=== PATIENT | female | born 1945 | race Caucasian/White ===

== ENCOUNTER 2025-03-24 20:24 | Emergency (ER) | payer MEDICARE, SELFPAY ==
--- OUTSIDE RECORDS SUMMARY | 2020-07-19 18:00 | XMS_ITS | Continuity of Care Document ---
Author Organization [facility] Primary Care Address [address] [place] [phone] Phone Care Team Providers Care Real Time Analyst Name Role Phone Eddie Lisa Unavailable Unavailab le Procedures Procedure Date SARSCOV2 VAC 100MCG/0.5ML IM Provider No Charge ADM SARSCOV2 100MCG/0.5ML2ND SARSCOV2 VAC 100MCG/0.5ML IM Provider No Charge ADM SARSCOV2 100MCG/0.5ML1ST PSYCH DIAG EVAL W/MED SRVCS [facility] visit, estab pt PSYTX W PT 30 MINUTES [facility] visit, estab pt Dis site tele svcs rhc/fqhc Dis site tele svcs rhc/fqhc PSYTX W PT 30 MINUTES [facility] visit, estab pt PSYCH DIAGNOSTIC EVALUATION [facility] visit, new pt Dis site tele svcs rhc/fqhc Advance Directives Directive Yes / No Effective Date File Name No Information Encounters Encounter Description Practice Location Reason(s) For Visit Diagnoses Date Provider Encounter Disposition [facility] Primary Care, [address] [place] [address] tel:[phone] [facility] Med Encounter for immunization ICD10 0 1 Jj Cates. [address] [place], [place], [id number], . tel:[phone] [facility] Primary Care, [address] [place] [address], [facility], tel:[phone] Conversion Default- None No Information 1 Jj Cates. [address] [place], [place], [id number], . tel:[phone] [facility] Primary Care, [address] [place] [address], [facility], tel:[phone] [facility] Encounter for immunization ICD10 1 Jj Eddie Loan. [address] [place], [place], [address] [place] [address], . tel:[phone] [facility] Primary Care, [address] [place] [address], [facility], tel:[phone] Conversion Default- None No Information 1 Jj Eddie Loan. [address] [place], [place], [address] [place] [address], . tel:[phone] PSYCH DIAG EVAL W/MED SRVCS [facility] Primary Care, [address] [place] [address], [facility], tel:[phone] Conversion Default- None No Information 1 Malina Fabian. [address] [place] [address], [address] [place] [address], . tel:[phone] [facility] Primary Care, [address] [place] [address], [facility], tel:[phone] [facility] Major depressive disorder, recurrent, moderateICD1 0Generalized anxiety disorderICD1 0 1 Malina Fabian. [address] [place] [address], [id number], . tel:[phone] PSYTX W PT 30 MINUTES [facility] Primary Care, [address] [place] [address], [facility], tel:[phone] Conversion Default- None No Information 0 Scrubbs Shenadra. [address] [place] [address], [address] [place] [address], . tel:[phone] [facility] Primary Care, [address] [place] [address], [facility], tel:[phone] [facility] Major depressive disorder, recurrent, moderateICD1 0Generalized anxiety disorderICD1 0 0 Scrubbs Shenadra. [address] [place], [place], [address] [place] [address], . tel:[phone] [facility] Primary Care, [address] [place] [address], tel:[phone] [facility] Major depressive disorder, recurrent, moderateICD1 0Generalized anxiety disorderICD1 0 0 Scrubbs Shenadra. [address] [place], [place], [address] [place] [address], . tel:[phone] PSYTX W PT 30 MINUTES [facility] Primary Care, [address] [place] [address], [facility], tel:[phone] Conversion Default- None No Information 0 Scrubbs Shenadra. [address] [place] [address], [address] [place] [address], . tel:[phone] [facility] Primary Care, [address] [place] [address] tel:[phone] [facility] Major depressive disorder, recurrent, moderateICD1 0Generalized anxiety disorderICD1 0 0 Scrubbs Shenadra. [address] [place], [place], [address] [place] [address], . tel:[phone] PSYCH DIAGNOSTIC EVALUATION [facility] Primary [facility], [address] [place] [address], [address] [place] [address] tel:[phone] Conversion Default- None No Information 0 Scrubbs Shenadra. [address] [place] [address], [address] [place] [address], . tel:[phone] Family History Family Member Type Diagnosis Age At Onset No Information Immunizations Vaccine Date Status Comments COVID-19 administered Note: COVID19 F act sheet 03/2020 ; Source: New Immunization Record COVID-19 administered Note: COVID19 F act sheet 03/2020 ; Source: New Immunization Record Payers Payer name Insurance type Identifiers Authorization(s) Com ments No Information Social History Type Description Quantity Date Captured Comments Sex Female Smoking Status No Information Vital Signs Date / Time: Height Weight BMI Pulse Rate Blood Pressure Temperature Respiratory Rate Body Surface Area Head Circumference Head Circ. Percentile Wt./Williams. Percentile BMI percentile Pulse Ox Inhaled Ox 12:00 AM 98.40 F Chief Complaint And Reason For Visit No Information History Of Present Illness Encounter Date Complaint History Of Prese nt Illness No Information Functional Status Date Description Comments No Information Instructions Date Instruction Additional Infor mation No Information Assessments Type Assessment Date No Information
--- OUTSIDE RECORDS SUMMARY | 2025-03-21 10:45 | XMS_ITS | Encounter Summary ---
Author Organization [facility] stem Address [address] [place] [address] Care Team Providers Care Yardmaster Name Role Phone Easton Solis MD Unavailable [phone] Brittny Kong MD Primary Care Provider [phone] Encounter Details Date Type Department Care Team (Late st Contact Info) Description 03/21/2025 10:45 AM LEGAL SERVICES PROFESSIONAL Lab [address] [address] Rani Smith, SEAM CLOSER [address] [place] [address] Linda Vines Urinary tract infection, site not specified (Primary Dx) Social History Tobacco Use Types Packs/Day Years Used Date Smoking Tobacco: Former Cigarettes 1.5 40 0 12/30/1960 - 12/30/2000 Smokeless Tobacco: Never Comments:QUIT 15 YEARS AGO Alcohol Use Standard Drinks/Week Comments No 0 (1 standard drink = 0.6 oz pur e alcohol) PHQ-2 Answer Date Recorded PHQ-2 Score 0 2025 Sexually Active Control Partners Comments Never Comments No Sex and Gender Information Value Date Recorded Sex Assigned at Not on file Legal Sex Female 3:39 PM CDT Gender Identity Not on file Sexual Orientation Not on file documented as of this encounter Functional Status * Are you deaf or do you have serious difficulty hearing? Answer Date of Assessment Author No 01/13/2025 2:42 PM CDT Lenard Gunn MA * Are you blind or do you have serious difficulty seeing, even when wearing glasses? Answer Date of Assessment Author No 01/13/2025 2:42 PM CDT Lenard Gunn MA * Do you have serious difficulty walking or climbing stairs? (5 years old or older) Answer Date of Assessment Author No 01/13/2025 2:42 PM CDT Lenard Gunn MA * Do you have difficulty dressing or bathing? (5 years old or older) Answer Date of Assessment Author No 01/13/2025 2:42 PM CDT Lenard Gunn MA * Because of a physical, mental, or emotional condition, do you have difficulty doing errands alone such as visiting a doctor's office or shopping? (15 years old or older) Answer Date of Assessment Author No 01/13/2025 2:42 PM CDT Lenard Gunn MA documented as of this encounter Mental Status * Because of a physical, mental, or emotional condition, do you have serious difficulty concentrating, remembering, or making decisions? (5 years old or older) Answer Entry Date Author No 01/13/2025 2:42 PM CDT Lenard Gunn MA documented in this encounter Patient Instructions * Patient Instructions* Linda Vines - 03/21/2025 10:45 AM LEGAL SERVICES PROFESSIONAL Urine only for [place] sent to [facility] documented in this encounter Plan of Treatment Upcoming Encounters Date Type Department Care Team (Late st Contact Info) Description 04/25/2025 10:00 AM LEGAL SERVICES PROFESSIONAL Office Visit [facility] - [address], [address] [place] [address] Brittny Kong MD [address] [place] [address] [address] [place] [address] 06/09/2025 2:15 PM LEGAL SERVICES PROFESSIONAL Lab [address] [address] [place] [address], [address] [place] [address] 06/16/2025 2:45 PM LEGAL SERVICES PROFESSIONAL Office Visit [facility] [address], [address] [place] [address] [place] [address] [address], [address] [place] [address] 06/16/2025 3:30 PM LEGAL SERVICES PROFESSIONAL Office Visit [facility] - [address], [address] [place] [address] Brittny Kong MD [address] [place] [address] [address] [place] [address] documented as of this encounter Goals Goal Patient Goal Type Associated Problems Recent Progress Patient-Stated? Author Have 3 meals a day Diet No Kamilla Gongora, RN Exercise 3x per week (30 min per time) Exercise No Kamilla Gongora, RN documented as of this encounter Procedures Procedure Name Priority Date/Time Associated Diagnosis Comments UA WITH REFLEX Routine 03/21/2025 11:10 AM LEGAL SERVICES PROFESSIONAL Recurrent UTI documented in this encounter Results * (ABNORMAL) Urinalysis with Reflex (03/21/2025 11:10 AM LEGAL SERVICES PROFESSIONAL) Color, Urine: YELLOW [facility]LLOW [facility] Appearance CLOUDY(A) CLEAR [facility] Specific [place], Urine 1.024 1.001 - 1.035 [facility] pH, Urine 5.5 5.0 - 8.0 [facility] Glucose, Urine 3+(A) NEGATIVE [facility] Bilirubin, Urine NEGATIVE NEGATIVE [facility] Ketones,Urine NEGATIVE NEGATIVE [facility] Occult Blood, Urine NEGATIVE NEGATIVE [facility] Protein, Urine NEGATIVE NEGATIVE [facility] NITRITE, URINE NEGATIVE NEGATIVE [facility] Leuk. Esterase, Urine NEGATIVE NEGATIVE [facility] WBC, Urine 0-5 < OR = 5 /HPF [facility] RBC, Urine NONE SEEN < OR = 2 /HPF [facility] Squamous Epithelial Cells, Urine NONE SEEN < OR = 5 /HPF [facility] Bacteria NONE SEEN NONE SEEN /HPF [facility] Casts, Hyaline NONE SEEN NONE SEEN /LPF [facility] Yeast, urine MANY(A) NONE SEEN /HPF [facility] Note: [facility] Comment: This urine was analyzed for the presence of WBC, RBC, bacteria, casts, and other formed elements. Only those elements seen were reported. 03/21/2025 11:1 0 AM LEGAL SERVICES PROFESSIONAL 03/22/2025 4:19 AM LEGAL SERVICES PROFESSIONAL Narrative Resulting Agency Comment Performing Organization Information: Site ID: [id number] Name: [email or web address] Address: [address] [place] [address] Director: Sherly Murphy Performing Organization Information: Site ID: [id number] Name: [email or web address] [facility] Address: [address] [place] [address] Director: Sherly Murphy us Rani Smith SEAM CLOSER URINE ORDERABLES Final Res ult Performing Organization Address City/State/[facility] [[email or web address]] de Phone Number [facility] [address] documented in this encounter Visit Diagnoses Diagnosis Urinary tract infection, site not specified- Primary documented in this encounter Additional Health Concerns Assessment Noted Time PHQ-9 Depression Total Score: 13 09/21/ 019 10:32 AM CDT PHQ-2 Depression Total Score: 0 03/15/20 25 1:00 PM LEGAL SERVICES PROFESSIONAL documented as of this encounter Care Teams Yardmaster Relationship Specialty [place] [address] [facility] [address] [place] [address] PCP - General Family Medicine 09/23/22 Easton Solis MD [address] [place] [address] MARIAJOSE FRANKLIN [address] Staff/Attending Physician Pulmonary Disease 02/09/18 documented as of this encounter
[2025-03-24 20:26] VITALS: BP 233/99; PULSE 65; RESP 18; TEMP 36.6; O2SAT 99
--- NOTE | 2025-03-24 20:38 | ECG_ITS ---
[facility] Test Date: 2025-03-24 Pat Name: Sobia Joya Department: Room: Gender: Female Airline Attendant: : 1945 Requested By: Gera Ayala Order Number: [id number] Vivian MD: Harleen Nunez M.D. Measurements Intervals [place] Rate: 67 P: 74 OR: 161 QRS: -19 QRSD: 92 T: 40 QT: 449 QTc: 477 Interpretive Statements SINUS RHYTHM PROLONGED QT INTERVAL No previous ECG available for comparison Electronically Signed On 03-25-2025 18:47:32 BUS STARTER by Harleen Nunez M.D. [email or web address]
--- OUTSIDE RECORDS SUMMARY | 2025-03-24 20:38 | XMS_ITS | Encounter Summary ---
Author Organization [facility] stem Address [address] [place] [address] Care Team Providers Care Skiver Sock Linings Name Role Phone Easton Solis MD Unavailable [phone] Brittny Kong MD Primary Care Provider [phone] Encounter Details Date Type Department Care Team (Late st Contact Info) Description 03/16/2025 Results Follow-Up [facility] [address] [place] [address] Rani Smith, ACCOUNT SUPPORT SPECIALIST [address] [place] [address] POCT urinalysis dipstick, Urinalysis with Reflex, Urine Culture Social History Tobacco Use Types Packs/Day Years [...] Lenard Gunn MA documented in this encounter Plan of Treatment Upcoming Encounters Date Type Department Care Team (Late st Contact Info) Description 04/25/2025 10:00 AM PSYCH ASSISTANT Office Visit [facility] - [address] [place] [id number] Brittny Kong MD [address] [place] [address] [address] [place] [address] 06/09/2025 2:15 PM PSYCH ASSISTANT Lab [address] [id number] [place] [address] [address] [facility] [address], [place] [id number] 06/16/2025 2:45 PM PSYCH ASSISTANT Office Visit [facility] [address] [place] [phone] [place] [address] [address], DR [facility] [address] [place], [place] [id number] 06/16/2025 3:30 PM PSYCH ASSISTANT Office Visit [facility] [place] [address] [place] [address], [address] [place] [address] Brittny Kong MD [address] [place] [address] [address] [place], [place] [id number] documented as of this encounter Goals Goal Patient Goal Type Associated Problems Recent Progress Patient-Stated? Author Have 3 meals a day Diet No Kamilla Gongora, RN Exercise 3x per week (30 min per time) Exercise No Kamilla Gongora, JONI documented as of this encounter Visit Diagnoses Not on filedocumented in this encounter Additional Health Concerns Assessment Noted Time PHQ-9 Depression Total Score: 13 09/21/ 019 10:32 AM CDT PHQ-2 Depression Total Score: 0 03/15/20 25 1:00 PM PSYCH ASSISTANT documented as of this encounter Care Teams Skiver Sock Linings Relationship Specialty Start Date End Date Brittny Kong MD [address] [place] [address] [address] [place] [address] PCP - General Family Medicine 09/23/22 Easton Solis MD [address] [place] [address] MARIAJOSE FRANKLIN [address] Staff/Attending Physician Pulmonary Disease 02/09/18 documented as of this encounter
--- OUTSIDE RECORDS SUMMARY | 2025-03-24 20:38 | XMS_ITS | Clinical Summary ---
Author Organization [facility] stem Address [address] [place] [address] Care Team Providers Care Samples And Repairs Preparer Name Role Phone Easton Solis MD Unavailable [phone] Brittny Kong MD Primary Care Provider [phone] Allergies No known active allergies Medications cyanocobalamin, vitamin B-12, 2,[address] 2,500 mcg under the tongue once a week Active calcium carbonate (CALTRATE) 600 mg (1,500 mg) Tab Take 1 tablet (600 mg total) by mouth daily Active ASPIRIN LOW DOSE 81 mg EC tablet Take 1 tablet (81 mg total) by mouth daily 016 Active multivitamin (THERAGRAN) Tab per tablet Take 1 tablet by mouth daily Active acetaminophen 500 mg coapsule as needed Active B-complex with vitamin C tablet 018 Active HYDROcodone-aceta minophen (NORCO) 10-325 mg per tablet Take 1 tablet by mouth every 8 (eight) hours as needed Usually only takes once a day 020 Active polyethylene glycol (Miralax) 17 gram packetIndications :Therapeutic opioid induced constipation Take 17 g by mouth daily 90 each 3 020 Active gabapentin (NEURONTIN) 600 MG Tab tablet Take 1 tablet (600 mg total) by mouth 2 (two) times daily Active potassium chloride SA (KLOR-CON) 10 MEQ TbTQ tabletIndications :Chronic diastolic congestive heart failure (CMS/HCC) Take 1 tablet (10 mEq total) by mouth daily 90 tablet 1 022 Active bisacodyL (DULCOLAX) [address] 1 suppository (10 mg total) rectally daily as needed Active docusate sodium (COLACE) 100 MG Cap capsule Take 1 capsule (100 mg total) by mouth 2 (two) times daily Active melatonin 5 mg Tab tablet Take 1 tablet (5 mg total) by mouth nightly Active cetirizine (ZyrTEC) 10 MG Tab tabletIndications :Chronic cough,Stage 1 mild COPD by GOLD classification ([facility]) Take 1 tablet (10 mg total) by mouth daily 90 tablet 3 023 Active tiZANidine (ZANAFLEX) 4 MG Tab tablet Take 1 tablet (4 mg total) by mouth nightly 90 tablet 3 023 Active carvediloL (COREG) 6.25 MG Tab tabletIndications :Essential hypertension Take 1 tablet (6.25 mg total) by mouth in the morning and 1 tablet (6.25 mg total) in the evening. Take with meals. 180 tablet 3 025 Active losartan (Cozaar) 50 MG Tab tabletIndications :Essential hypertension Take 1 tablet (50 mg total) by mouth 2 (two) times daily 180 tablet 3 025 Active Additional Information Patient taking differently:50 mg OralEvery morning, Reported on 2025 FLUoxetine (PROzac) 20 MG Cap capsuleIndication s:Anxiety with depression TAKE 1 CAPSULE EVERY DAY 90 capsule 3 025 Active mirtazapine (REMERON) 45 MG Tab tabletIndications :Primary insomnia Take 1 tablet (45 mg total) by mouth nightly 90 tablet 3 025 Active ondansetron (ZOFRAN-ODT) 4 MG TbDi disintegrating tablet 025 Active albuterol (Ventolin HFA) 90 mcg/actuation HFAA inhalerIndication s:Stage 1 mild COPD by GOLD classification ([facility]),Cigaret te nicotine dependence in remission Inhale 2 puffs into the lungs every 4 (four) hours as needed for Wheezing or Shortness of Breath INHALE 2 PUFFS EVERY 4 HOURS NEEDED FOR SHORTNESS OF BREATH OR WHEEZING 8 g 5 025 Active albuterol sulfate (PROVENTIL) 2.5 mg /3 mL (0.083 %) Nebu nebulizer solutionIndicatio ns:Stage 1 mild COPD by GOLD classification ([facility]/HCC),Cigaret te nicotine dependence in remission Take 3 mLs (2.5 mg total) by nebulization every 4 (four) hours as needed for Wheezing or Shortness of Breath 360 mL 5 025 Active fluticasone propionate (FLONASE) 50 mcg/actuation SpSn nasal sprayIndications: Chronic allergic rhinitis USE 2 SPRAYS NASALLY EVERY DAY NEEDED FOR RHINITIS. 48 g 3 025 Active fluticasone-umecl idin-vilanter (Trelegy Ellipta) 100-62.5-25 mcg DsDv inhalerIndication s:Stage 1 mild COPD by GOLD classification ([facility]) Inhale 1 puff into the lungs daily 90 each 3 025 Active Additional Information Patient taking differently:1 puff Inhalation Daily,(No times of day reported), Reported on 2025 cephalexin (KEFLEX) 500 MG Cap capsuleIndication s:Recurrent UTI Take 1 capsule (500 mg total) by mouth 3 (three) times a week 20 capsule 3 025 Active pravastatin (PRAVACHOL) 40 MG Tab tabletIndications :Dyslipidemia TAKE 1 TABLET EVERY NIGHT 90 tablet 1 025 Active mirabegron (Myrbetriq) 25 mg Tb24 24 hr ER tabletIndications :Urinary frequency,Incompl ete bladder emptying Take 1 tablet (25 mg total) by mouth daily 90 tablet 3 025 Active empagliflozin (JARDIANCE) 10 mg Tab tablet Take 1 tablet (10 mg total) by mouth every morning 025 2025 Active butalbital-acetam inophen-caffeine (ESGIC) 50-325-40 mg Tab per tablet 025 Active ciprofloxacin HCl (Cipro) 250 MG Tab tabletIndications :Acute cystitis with hematuria Take 1 tablet (250 mg total) by mouth 2 (two) times daily 10 tablet 025 Active pantoprazole (PROTONIX) 40 MG TbEC tabletIndications :Gastroesophageal reflux disease, unspecified whether esophagitis present TAKE 1 TABLET (40 MG TOTAL) BY MOUTH DAILY NEEDED 90 tablet 3 025 Active furosemide (LASIX) 20 MG Tab tabletIndications :Essential hypertension,Hype rtensive kidney disease with stage 3a chronic kidney disease (CMS/HCC),Chronic diastolic congestive heart failure (CMS/HCC) TAKE 1 TABLET EVERY DAY FOR SWELLING NEEDED 90 tablet 3 025 Active nystatin (MYCOSTATIN) 100,000 unit/mL Susp suspension Swish and spit 5 mLs 4 (four) times daily as needed 60 mL 025 Active vibegron 75 mg TabIndications:Re current UTI,Urinary frequency,Incompl ete bladder emptying Take 75 mg by mouth daily 90 tablet 3 024 2024 Discontinued furosemide (LASIX) 20 MG Tab tabletIndications :Essential hypertension,Hype rtensive kidney disease with stage 3a chronic kidney disease (CMS/HCC),Chronic diastolic congestive heart failure (CMS/HCC) Take 1 tablet (20 mg total) by mouth daily as needed (for swelling) 90 tablet 1 025 2024 Discontinued pantoprazole (PROTONIX) 40 MG TbEC tabletIndications :Gastroesophageal reflux disease, unspecified whether esophagitis present Take 1 tablet (40 mg total) by mouth daily as needed 90 tablet 2 025 2024 Discontinued amoxicillin-clavu lanate (AUGMENTIN) 500-125 mg Tab per tablet Take 1 tablet (500 mg total) by mouth 2 (two) times daily 2024 Discontinued(T herapy completed) oxybutynin (DITROPAN-XL) 10 MG TR24 24 hr tabletIndications :Recurrent UTI,Urinary frequency Take 1 tablet (10 mg total) by mouth daily 90 tablet 3 025 2024 Discontinued(A lternate therapy) nystatin (MYCOSTATIN) 100,000 unit/mL Susp suspension Swish and swallow 5 mLs 4 (four) times daily 60 mL 025 2024 Discontinued(R eorder) vibegron (GEMTESA) 75 mg Tab tabletIndications :Urinary frequency,Incompl ete bladder emptying Take 1 tablet (75 mg total) by mouth daily 90 tablet 3 025 11/12/ 2025 Discontinued(C ost of medication) Active Problems Problem Noted Date Diagnosed Date Acute cystitis with hematuria 2025 Assessment & Plan (2025 1:21 PM EDI DEVELOPER): New, with symptoms of increase urine frequency and dysuria. POC UA with blood and nitrates. Will send for microscopic and culture. Prescription for Cipro 250 mg twice a day for 5 days. Stop keflex until Cipro complete. She has a history of recurrent UTI and is currently taking keflex 500 mg three times a week. Recommend repeat UA in 7 days, and follow up with Dr. Davey . Abnormal CT of the chest 01/13/2025 Hypotension, unspecified hypotension type 2024 Pulmonary nodule 05/08/2023 Chronic cough 07/04/2022 Cigarette nicotine dependence in remission 07/04 Incomplete bladder emptying 08/20/2021 Iron deficiency 02/26/2021 Urinary frequency 08/21/2020 Hypertensive kidney disease with CKD stage III 0 06/19/2020 Anxiety with depression 06/19/2020 Chronic diastolic congestive heart failure 03/08 Bilateral pseudophakia 01/21/2020 Assessment & Plan (01/21/2020 11:51 AM CDT): Chronic, stable. Continue to follow up with Dr. Lea Microscopic hematuria 10/05/2018 Assessment & Plan (01/21/2020 11:45 AM CDT): Chronic, stable. Continue to follow up with Dr. Davey. Slow transit constipation 10/05/2018 Assessment & Plan (01/21/2020 11:35 AM CDT): Chronic, stable. Currently taking dulcolax, 1 tab daily as needed. Also trying to control with diet. Make sure to stay well hydrated and increase activity. Continue to follow up with Dr. Clifford. Age-related osteoporosis wit kelsie current pathological fracture 09/21/2018 Assessment & Plan (01/21/2020 11:43 AM CDT): Chronic, stable. Last DXA 11/2018 shows osteopenia. Currently taking Caltrate 600mg daily and Fosamax 70mg, once weekly, take with 8 oz water on empty stomach and do not lie down for 30 minutes after. Complications of osteoporosis is bone fracture. Over 65 yo calcium 1500 mg through diet or supplementation and Vitamin D 800 IU daily. Avoid smoking and heavy alcohol use. Exercise daily and stay active. Fall precautions. Continue to follow up with Dr. Clifford. Recurrent UTI 07/13/2018 Assessment & Plan (01/21/2020 11:45 AM CDT): Chronic, stable. Continue to follow up with Dr. Davey. Stage 3a chronic kidney disease 07/13/2018 Mild protein malnutrition 11/12/2017 Impaired fasting glucose 11/12/2017 Assessment & Plan (01/21/2020 11:38 AM CDT): Chronic, stable. Reports currently trying to control with diet. Continue to follow up with Dr. Clifford. Chronic allergic rhinitis 11/29/2016 Assessment & Plan (01/21/2020 11:32 AM CDT): Chronic, stable. Currently taking fluticasone 50mcg/spray, 2 sprays each nostril daily as needed. Continue to follow up with Dr. Clifford. Dyslipidemia 11/11/2016 Assessment & Plan (01/21/2020 11:47 AM CDT): Chronic, stable. Currently taking pravastatin 40mg, nightly. Continue to follow with Sarah Clifford MD. Complications of Hyperlipidemia discussed-Coronary Artery Disease, Stroke. Recommendations low fat, low salt. low cholesterol diet, increase exercise to 30-60 minutes. Postoperative malabsorption 11/11/2016 Therapeutic opioid-induced constipation (OIC) Assessment & Plan (01/21/2020 11:36 AM CDT): Chronic, stable. Currently taking dulcolax, 1 tab daily as needed. Also trying to control with diet. Make sure to stay well hydrated and increase activity. Continue to follow up with Dr. Clifford. Stage 1 mild COPD by GOLD classification 017 Assessment & Plan (01/21/2020 11:34 AM CDT): Chronic, stable. Currently taking albuterol 90mcg, 2 puffs every 4 hours as needed for shortness of breath or wheezing. Prescribed Trelegy but reports she is unable to afford at this time. Continue to follow up with Dr. Clifford. Hearing loss in right ear 06/04/2016 Assessment & Plan (01/21/2020 11:39 AM CDT): Chronic, stable. Reports she needs to follow up with slinger sequins, she is unable to afford. Continue to follow up with slinger sequins. Peripheral vascular angiopla sty status with implants and grafts 06/04/2016 Assessment & Plan (01/21/2020 11:51 AM CDT): Chronic, stable. Currently taking aspirin 81mg daily and pravastatin 40mg at night. Continue to follow up with Dr. Boss. Bilateral dry eyes 06/04/2016 Assessment & Plan (01/21/2020 11:50 AM CDT): Chronic, stable. Currently taking Restasis 0.05%, 1 drop both eyes daily. Continue to follow up with Dr. Lea. Long-term use of aspirin therapy 06/04/2016 Assessment & Plan (01/21/2020 11:48 AM CDT): Chronic, stable. Currently taking aspirin 81mg daily. Fall prevention discussed and education given. Continue to follow up with Dr. Casey and Dr. Clifford. Primary osteoarthritis involving multiple joints 06/04/2016 Assessment & Plan (01/21/2020 11:41 AM CDT): Chronic, stable. Currently taking acetaminophen 500mg, daily as needed for breakthrough pain, Holliday 10-325mg, every 8 hours and Voltaren gel 1%, apply 4 grams topically 2-3 times per day. Continue to follow up with Dr. Amezcua. Primary insomnia 01/30/2015 Assessment & Plan (01/21/2020 11:53 AM CDT): Chronic, stable. Currently taking trazodone 150mg, nightly. Continue to follow up with Dr. Clifford. Essential hypertension 01/30/2015 Assessment & Plan (2025 1:23 PM EDI DEVELOPER): Chronic, stable. Continue taking losartan 50 mg twice a day and carvedilol 6.25 mg daily. Continue to follow with Brittny Kong MD. Complications of Hypertension are-Coronary Artery Disease, Stroke, Congestive Heart Failure, Chronic Renal Disease and dialysis. Recommendations Weight loss, Diet (DASH diet)- low sodium diet, rich in fruits and vegetables and lowfat dairy products, increase exercise to 30-60 minutes and limit consumption of alcohol to no more than 1-2 drink per day. Monitor blood pressure twice a week. Assessment & Plan (01/21/2020 11:31 AM CDT): Chronic, stable. Currently taking aspirin 81mg, daily, Imdur 30mg, daily and lisinopril 20mg, daily. Complications of Hypertension discussed-Coronary Artery Disease, Stroke, Congestive Heart Failure, Chronic Renal Disease and dialysis. Recommendations Weight loss, Diet (DASH diet)- low sodium diet, rich in fruits and vegetables and lowfat dairy products, increase exercise to 30-60 minutes and limit consumption of alcohol to no more than 1-2 drink per day. Monitor blood pressure twice a week. Continue to follow up with Dr. Casey and Dr. Clifford. Gastroesophageal reflux disease 01/30/2015 Overview (01/20/2020): January 2020 IMO Regulatory Import Assessment & Plan (01/21/2020 11:37 AM CDT): Chronic, stable. Currently taking Protonix 40mg, daily. [id number] measures were discussed in detail and explained : Elevate the head of bed 6 inches, avoid caffeine, fatty meals, spicy meals, smoking, alcohol, chocolate, peppermint, red sauce, avoid lying down up to 2-3 hours after meals, eat 5-6 small meals daily, smoking cessation. Continue to follow up with Dr. Clifford. History of bariatric surgery 01/30/2015 Overview (01/30/2015): Gastric sleeve surgery in [facility] in July [address] Andersen Assessment & Plan (01/21/2020 11:54 AM CDT): Chronic, stable. Currently taking B12, 2500mcg under the tongue once weekly. Continue to follow up with Dr. Clfiford. Overactive bladder 01/30/2015 Assessment & Plan (2025 1:22 PM EDI DEVELOPER): Chronic noted, Currently taking Myrbetriq 25 mg daily. Continue to follow with Dr. Davey. Assessment & Plan (01/21/2020 11:46 AM CDT): Chronic, stable. Currently taking oxybutynin 5mg twice daily. Continue to follow up with Dr. Clifford and Dr. Davey. Chronic low back pain with sciatica 01/30/2015 Overview (11/11/2016): Bulging disc and lumbar stenosis in her lower back with resultant sciatica. Under the care of Dr. Pulliam Assessment & Plan (01/21/2020 11:53 AM CDT): Chronic, stable. Currently taking acetaminophen 500mg, daily as needed for breakthrough pain, Holliday 10-325mg, every 8 hours, tizanidine 4mg at bedtime and Voltaren gel 1%, apply 4 grams topically 2-3 times per day. Continue to follow up with Dr. Amezcua. Sinus bradycardia 01/30/2015 Overview (01/30/2015): Under the care of her clinical quality analyst Dr. Rafael Casey at [facility]. Assessment & Plan (01/21/2020 11:29 AM CDT): Chronic, stable. Continue to follow upw ith Dr. Casey as directed. Peripheral artery disease 01/30/2015 Overview (01/30/2015): Bilateral ?common iliac stents in 2000 Assessment & Plan (01/21/2020 11:29 AM CDT): Chronic, stable. Currently taking aspirin 81mg daily and pravastatin 40mg at night. Continue to follow up with Dr. Boss. Resolved Problems Problem Noted Date Diagnosed Date Resolved Date Stage 3b chronic kidney disease 09/26/2020 01/23/2023 CKD (chronic kidney disease) stage 2, GFR 60-89 ml/min 08/21/2020 01/23/2023 Urinary frequency 05/03/2019 01/21/2020 Urinary urgency 07/13/2018 01/21/2020 Bilateral artificial lens implant 06/04/2016 01/21/2020 Encounters Date Type Department Care Team Description 03/22/2025 Results Follow-Up [facility] [address], [address] [place] [phone] Rani Smith, EMILEE Urinalysis with Reflex 03/21/2025 10:45 AM EDI DEVELOPER Lab [address] [address] Rani Smith, Linda Deal Urinary tract infection, site not specified (Primary Dx) 03/21/2025 Telephone [facility] [address] MD, Dr [address] [place] [address] [place], [place] 03/21/[address], [address] [phone] Brittny Kong MD 03/16/2025 Results Follow-Up [facility] [address] [place] [address] Rani Smith, EMILEE POCT urinalysis dipstick, Urinalysis with Reflex, Urine Culture 03/16/[address], [address] [phone] Brittny Kong MD Medication Refill 2025 1:00 PM EDI DEVELOPER Office Visit [address], [address] [phone] Civello, Rani M, TREE WARDEN Acute cystitis with hematuria (Primary Dx); Overactive bladder; Essential hypertension 03/14/2025 Patient Outreach [facility] [address] [place] [address] Robbin Gabriel SN 03/03/2025 Orders Only [facility] [place] [address] [place] [address] Elisa Lucas MA 03/03/2025 [facility]phone [facility] [place] [address] [place] [address] Bret Davey MD 03/02/2025 [facility] [place] [address] [place] [address] Dayna Cardona MA Urinary frequency (Primary Dx); Incomplete bladder emptying 03/01/2025 Telephone [facility] [place] [address] [place] [address] Bret Davey MD 03/01/2025 Orders [facility] [place] [address] [place] [address] Dayna Cardona MA Urinary frequency (Primary Dx); Incomplete bladder emptying 03/01/2025 Telephone [facility] [place] [address] [place] [address] Bret Davey MD 02/24/2025 Refill [facility] [address], [address] [place] [address] Art Delacruz MD Pt of Dr. Delacruz 02/21/2025 Telephone [facility] [address], [address] [place] [address] Basso, med refill 02/10/2025 Patient Outreach [facility] [address] [place] [address] HarveyRoryy, SN 01/28/2025 Refill [facility] [place] [address] [place] [address] Dagmar Isaacs MA Medication Refill 01/28/2025 Telephone [facility] [place] [address] [place] [address] Bret Davey MD 01/26/2025 Orders Only [facility] [place] [address] [place] [address] Ficklin, Nilaina, NURSE DISCHARGE PLANNER Recurrent UTI; Urinary frequency 01/26/2025 Telephone [facility] [place] [address] [place] [address] Bret Davey MD 01/25/2025 Telephone [facility] [address], [address] [place] [address] Fowlkes, missed call 01/25/2025 Refill [facility] [place] [address] [place] [address] Ficklin, Nilaina, NURSE DISCHARGE PLANNER Medication Refill 01/24/2025 Telephone [facility] [address], Dr, [address] [place] [address] Fowlkes med refill. 01/24/[address], [address] [place] [address] Basso med refill. 01/24/[address], [address] [place] [phone] Basso, med status 01/18/[address], [address] [address] Basso - med update needed 01/18/2025 Telephone [facility] [address], Dr, [address] [place] [address] Fowlkes - med update needed 01/17/2025 Results Follow-Up [address], [address] [address] Brittny Kong MD Comprehensive metabolic panel, Lipid panel, Microalbumin/Creatini ne Ratio, Random Urine, Hemoglobin A1c 01/14/2025 Orders Only [address], [address] [address] Brittny Kong MD 01/13/2025 3:15 PM CDT Office Visit [address], [address] [place] [address] Art Delacruz MD 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) (Primary Dx); Pulmonary nodule; Sinus bradycardia; Cigarette nicotine dependence in remission; Abnormal CT of the chest 01/13/2025 2:30 PM CDT Office Visit [address], [address] [address] Brittny Kong MD Prediabetes (Primary Dx); Gastroesophageal reflux disease, unspecified whether esophagitis present; Dyslipidemia 01/13/2025 Telephone [facility] [address], Dr, [address] [place] [address]Fowlkes- rx fill 01/06/2025 Telephone [facility] [address], Dr, [address] [place] [address] Fowles, please advise 01/06/2025 Orders Only [facility] [address], Dr, [address] [place] [address] Art Delacruz MD Bradycardia (Primary Dx) 01/06/2025 Results Follow-Up [facility] [address], Dr, [address] [place] [address] Art Delacruz MD [address] 01/05/2025 Refill [facility] - [address], [address] [place] [phone] Brittny Kong MD Medication Refill 12/30/2024 8:32 AM CDT - 12/30/2024 11:59 PM CDT Hospital Encounter Cat Scan [address] [place] [address] Art Delacruz MD 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); Pulmonary nodule Discharge Disposition: Home or Self Care 12/30/2024 8:00 AM CDT Procedure Visit [facility] [address] [place] [address] Art Delacruz MD Alford, Cynthia, LRT 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); Dyspnea on exertion 12/30/2024 Telephone [facility] [address], [address], [address] [place] [address] Stephanie Hunter MA from Last 3 Months Immunizations Immunization Administration Dates Next Due Covid-19, mRNA, LNP-S, PF, 1 00 Mcg/0.5 Ml Dose (Moderna) 09/19/2020,07/20/2020,06/22/2020 Influenza Quadrivalent 01/30/2015 Influenza, High-dose, Quadrivalent 02/26/2021 Influenza,seasonal,injectable 01/19/2021, 013 Pneumococcal Polysaccharide PPV23 (Pneumovax 23) 12/07/2019 Pneumococcal conjugate,13 valent 08/13/2017 Zoster (SHINGRIX), Recombinant 12/07/2019 Family History Medical History Relation Comments Diabetes Father Heart disease Father Arthritis Mother Breast cancer Paternal Aunt Relation Status Comments Father Mother Paternal Aunt Social History Tobacco Use Types Packs/Day Years Used Date Smoking Tobacco: Former Cigarettes 1.5 40 0 12/30/1960 - 12/30/2000 Smokeless Tobacco: Never Tobacco Cessation:Counseling Given: Not Answered Comments:QUIT 15 YEARS AGO Alcohol Use Standard [...] on file Sexual Orientation Not on file Last Filed Vital Signs Vital Sign Reading Time Taken Comments Blood Pressure 122/80 2025 12:59 PM EDI DEVELOPER Pulse 68 2025 12:59 PM EDI DEVELOPER Temperature 36.7 C (98 F) 2025 12:59 PM EDI DEVELOPER Respiratory Rate 18 2025 12:59 PM EDI DEVELOPER Oxygen Saturation 97% 2025 12:59 PM EDI DEVELOPER Inhaled Oxygen Concentration - - Weight 100.2 kg (221 lb) 2025 12:59 PM EDI DEVELOPER Height 170.2 cm (5' 7 ) 2025 12:59 PM EDI DEVELOPER Body Mass Index 34.61 2025 12:59 PM EDI DEVELOPER Plan of Treatment Upcoming Encounters Date Type Department Care Team (Late st Contact Info) Description 04/25/2025 10:00 AM EDI DEVELOPER Office Visit [facility] - [address], [address] [address] [place] [address] Brittny Kong MD [id number] [place] [address] [address] [place] [address] 06/09/2025 2:15 PM EDI DEVELOPER Lab [address] [place] [address] [place] [address], DR [address] [place] [address] 06/16/2025 2:45 PM EDI DEVELOPER Office Visit [facility] [address], [address] [place] [address] [place] [address] [address], DR [address] [place] [address] 06/16/2025 3:30 PM EDI DEVELOPER Office Visit [facility] - [address], [address] [place] [address] Brittny Kong MD [address] [place] [address] [address] [place] [address] Health Maintenance Due Date Last Done Comments CT Colonography 1945 FIT-DNA (Cologuard) 1945 Sigmoidoscopy 1945 DTaP,Tdap and Td Vaccines (1 - Tdap) 1952 Advance Care Planning 2010 FOBT 06/10/2019 06/10/2018, 04/22, 11/15/2016 Zoster Vaccine (Shingrix) (2 of 2) 02/01/2020 12/07/2019 RSV Vaccine 50 Years and Older or (1 - 1-dose 75+ series) 2020 Annual Medicare Exam 01/20/2021 01/21/2020, 01/21/20 COVID-19 Vaccine ( - season) 2024 09/19/2020, 07/20/2020, 06/22/2020 Influenza Vaccine (#1) 2024 , 01/19/2021, 01/30/2015, Additional history exists Colonoscopy 06/12/2031 06/12/2021, 08/11/2013 Colorectal Cancer Screening 06/12/2031 Hepatitis C Screening Discontinued 05/05/2018 Pneumococcal Vaccine 50 years old and older Completed 12/07/2019, 08/13/2017 Mammogram Discontinued 07/01/2022, 08/2021, 04/25/2021, Additional history exists Lung Cancer Screening Discontinued 12/30/2024 , 10/09/2023, 04/18/2023, Additional history exists RSV Vaccine <20 Months Aged Out No lo nger eligible based on patient's age to complete this topic Goals Goal Patient Goal Type Associated Problems Recent Progress Patient-Stated? Author Have 3 meals a day Diet No Kamilla Gongora, RN Exercise 3x per week (30 min per time) Exercise No Kamilla Gongora RN Procedures Procedure Name Priority Date/Time Associated Diagnosis Comments UA WITH REFLEX Routine 03/21/2025 11:10 AM EDI DEVELOPER Recurrent UTI URINE CULTURE Routine 03/21/2025 11:10 AM EDI DEVELOPER POCT URINALYSIS DIPSTICK Routine 2025 1:20 PM EDI DEVELOPER Acute cystitis with hematuria UA WITH REFLEX Routine 2025 1:10 PM EDI DEVELOPER Acute cystitis with hematuria URINE CULTURE Routine 2025 1:10 PM EDI DEVELOPER HGB A1C Routine 01/14/2025 4:28 PM CDT MICROALBUMIN URINE QUANT W/CREATININE RATIO Routine 01/14/2025 4:28 PM CDT LIPID PANEL Routine 01/14/2025 4:28 PM CDT COMPREHENSIVE METABOLIC PANEL Routine 01/14/2025 4:[address] CHEST WO CONTRAST Routine 12/30/2024 8:53 AM CDT 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) Pulmonary nodule 6 MINUTE WALK Routine 12/30/2024 8:00 AM CDT 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 Color, Urine: YELLOW YELLOW QUEST Appearance CLOUDY(A) CLEAR QUEST Specific [place], Urine 1.024 1.001 - 1.035 QUEST pH, [...] seen were reported. 03/21/2025 11:1 0 AM EDI DEVELOPER 03/22/2025 4:19 AM EDI DEVELOPER Narrative Resulting Agency Comment Performing Organization Information: Site ID: [id number] Name: [facility] Address: [address] [place] [id number] Director: Sherly Murphy Performing Organization Information: Site ID: [id number] Name: [facility] Address: [address] [place] [address] Director: Sherly Murphy Rani Smith NP URINE ORDERABLES Final Res ult Performing Organization Address [facility] de Phone Number [facility] [address] * Urine Culture (03/21/2025 11:10 AM EDI DEVELOPER) Only the most recent of2 resultswithin the time period is included. Urine Culture, Routine QUEST Comment: CULTURE, URINE, ROUTINE Micro Number: [id number] Test Status: Final Specimen Source: Urine Specimen Quality: Adequate Result: Upon further incubation: Mixed genital jerald isolated. These superficial bacteria are not indicative of a urinary tract infection. No further organism identification is warranted on this specimen. If clinically indicated, recollect clean-catch, mid-stream urine and transfer immediately to Urine Culture Transport Tube. 03/21/2025 11:1 0 AM EDI DEVELOPER 03/22/2025 4:19 AM EDI DEVELOPER Narrative Resulting Agency Comment Performing Organization Information: Site ID: [id number] Name: [facility] Address: [address] [place] [address] Director: Sherly Murphy Performing Organization Information: Site ID: RGA Name: [facility] Address: [address] [place] [address] Director: Sherly Murphy Rani Smith NP MICROBIOLOGY - GENERAL ORD ERABLES Final Result Performing Organization Address [facility] de Phone Number [facility] [address] [facility] * (ABNORMAL) POCT urinalysis dipstick (2025 1:20 PM EDI DEVELOPER) Glucose, Urine POC Negative Negative mg/dl Bilirubin, Urine POC Small(A) Negative Ketones, Urine POC Negative Negative mg/dl Specific [place] POC 1.015 1.005 - 1.030 Blood, Urine POC Small(A) Negative pH, Urine POC 8.5(A) 4.5 - 8.0 Protein, Urine POC 100 ([place])(A) Negative mg/dl Urobilinogen, Urine POC 1.0 (One) 0.2 ([place]), 1.0 (One) E.U/dl Nitrite, Urine POC Positive(A) Negative Leukocyte est, Urine POC Large(A) Negative Appearance POC yellow/cloud y Lot Number [id number] Expiration POC 10/19/2025 Dance Critic POC Siemens 2025 1:20 PM EDI DEVELOPER us Rani Smith NP POINT OF CARE TEST ORDERAB LES Final Result * Microalbumin/Creatinine Ratio, Random Urine (01/14/2025 4:28 PM CDT) Creatinine, Urine 90.3 Not Estab. mg/dL [facility] 1 Microalbumin, Urine 4.4 Not Estab. ug/mL [facility] 1 MICROALB/CREAT RATIO 5 0 - 29 mg/g creat [facility] 1 Comment: Normal: 0 - 29 Moderately increased: 30 - 300 Severely increased: >300 01/14/2025 4:28 PM CDT 01/14/2025 Narrative [facility] - 01/15/2025 3:09 PM CDT Specimen Comment: A courtesy copy of this report has been sent to [facility] *I* Performed at: - [facility] [address] [place], [place] [id number] Head Baker: Bienvenido Morales MD, Phone: [phone] us Brittny Kong MD URINE ORDERABLES Final Result [facility] [address] [place] [address] 1 * (ABNORMAL) Hemoglobin A1c (01/14/2025 4:28 PM CDT) HGB A1C% 6.1(H) 4.8 - 5.6 % [facility] 1 Comment: Prediabetes: 5.7 - 6.4 Diabetes: >6.4 Glycemic control for adults with diabetes: <7.0 01/14/2025 4:28 PM CDT 01/14/2025 Narrative [facility] - 01/15/2025 3:09 PM CDT Specimen Comment: A courtesy copy of this report has been sent to [facility] *I* Performed at: - [facility] [address] [id number] Head Baker: Bienvenido Morales MD, Phone: [phone] Brittny Kong MD LAB BLOOD ORDERABLES Final Res ult Performing Organization Address [facility] Co de Phone Number [facility] [address] [place] [phone] 1 * (ABNORMAL) Lipid panel (01/14/2025 4:28 PM CDT) Cholesterol, Total 158 100 - 199 mg/dL [facility] 1 Triglyceride 168(H) 0 - 149 mg/dL [facility] 1 HDL 40 >39 mg/dL [facility] 1 VLDL Cholesterol Calc 29 5 - 40 mg/dL [facility] 1 LDL, Calculated 89 0 - 99 mg/dL [facility] 1 01/14/2025 4:28 PM CDT 01/14/2025 Narrative [facility] - 01/15/2025 3:09 PM CDT Specimen Comment: A courtesy copy of this report has been sent to [facility] *I* Performed at: - [facility] [address] [id number] Head Baker: Bienvenido Morales MD, Phone: [phone] Brittny Kong MD LAB BLOOD ORDERABLES Final Res ult Performing Organization Address [facility] Co de Phone Number [facility] [address] [place] [phone] 1 * (ABNORMAL) Comprehensive metabolic panel (01/14/2025 4:28 PM CDT) Glucose 124(H) 70 - 99 mg/dL [facility] 1 BUN 9 8 - 27 mg/dL [facility] 1 Creatinine 1.10(H) 0.57 - 1.00 mg/dL [facility] 1 eGFR 51(L) >59 mL/min/1.7 3 [facility] 1 BUN/Creatinine Ratio 8(L) 12 - 28 [facility] 1 Sodium 141 134 - 144 mmol/L [facility] 1 Potassium 4.3 3.5 - 5.2 mmol/L [facility] 1 Chloride 99 96 - 106 mmol/L [facility] 1 Carbon Dioxide 27 20 - 29 mmol/L [facility] 1 Calcium 9.6 8.7 - 10.3 mg/dL [facility] 1 Total Protein 6.3 6.0 - 8.5 g/dL [facility] 1 Albumin 3.7(L) 3.8 - 4.8 g/dL [facility] 1 Globulin 2.6 1.5 - 4.5 g/dL [facility] 1 Bilirubin, Total 0.5 0.0 - 1.2 mg/dL [facility] 1 Alkaline Phosphatase 90 49 - 135 IU/L [facility] 1 Comment:Please note refere nce interval change AST 16 0 - 40 IU/L [facility] 1 ALT 7 0 - 32 IU/L [facility] 1 01/14/2025 4:28 PM CDT 01/14/2025 Narrative [facility] - 01/15/2025 3:09 PM CDT Specimen Comment: A courtesy copy of this report has been sent to [facility] *I* Performed at: - [facility] [address] [place], [place] [id number] Head Baker: Bienvenido Morales MD, Phone: [phone] us Brittny Kong MD LAB BLOOD ORDERABLES Final Res ult [facility] [address] [place] [address] 1 * CT Chest WO Contrast (12/30/2024 8:53 AM CDT) Anatomical Region Laterality Modality Chest Computed Tomogra phy 12/30/2024 9:28 AM CDT Narrative 12/30/2024 9:36 AM CDT EXAM: CT CHEST WO CONTRAST CLINICAL HISTORY: Follow-up pulmonary nodules COMPARISON: 10/09/2023 TECHNIQUE: Standard thin-section axial images, with reformatted sagittal and coronal images. FINDINGS: There is a new small dependent left pleural effusion compared to 10/09/2023. Increasing areas of lung consolidation are also visible in the left lower lobe, particularly at the lung base consistent with developing pneumonia. Additional new scattered areas of lung consolidation consistent with pneumonia are also visible in the left upper lobe in the mid lung zone. Opacities in the right middle lobe in the infrahilar region seen on 10/09/2023 consistent with pneumonitis have resolved although a separate 10 mm noncalcified nodule located anteriorly and medially in the anterior segment of the right upper lobe (series 2, image 65) is unchanged. No pathologic lymph node enlargement is visible in the mediastinum or axilla bilaterally. Heart size is normal. Moderate to severe vascular calcification is visible in the major coronary arteries, relatively greater in the left circumflex artery. No chest wall abnormalities are appreciated. Visualized portions of the upper abdomen appear normal except for evidence of cholecystectomy and gastric sleeve procedure. 1. Increasing opacity consistent with pneumonitis in the left upper and lower lobes and new small dependent left pleural effusion compared to 10/09/2023. 2. Resolution of pneumonitis in the right middle lobe since 10/09/2023. 3. Stable 10 mm noncalcified nodule in the right upper lobe. 4. No adenopathy is appreciated in the chest. All CT scans at this location are performed using dose modulation techniques as appropriate to a performed exam including the following: Automated exposure control; adjustment of the mA and/or kV according to patient size (this includes techniques or standardized protocols for targeted exams where dose is matched to indication / reason for exam; i.e. extremities or head); use of iterative reconstruction technique. Finalized on: 12/30/2024 9:36 AM By: Cyrus Caro [facility]# [id number] 2024-12-30 09:38:11.901 [facility] Procedure Note Cyrus Caro MD - 12/30/2024 EXAM: CT CHEST WO CONTRAST CLINICAL HISTORY: Follow-up pulmonary nodules COMPARISON: 10/09/2023 TECHNIQUE: Standard thin-section axial images, with reformatted sagittaland coronal images. FINDINGS: There is a new small dependent left pleural effusion compared to10/09/2023. Increasing areas of lung consolidation are also visible inthe left lower lobe, particularly at the lung base consistent withdeveloping pneumonia. Additional new scattered areas of lung consolidation consistent with pneumonia are alsovisible in the left upper lobe in the mid lung zone. Opacities in theright middle lobe in the infrahilar region seen on 10/09/2023 consistentwith pneumonitis have resolved although a separate 10 mm noncalcified nodule located anteriorly andmedially in the anterior segment of the right upper lobe (series 2, image65) is unchanged. No pathologic lymph node enlargement is visible in themediastinum or axilla bilaterally. Heart size is normal. Moderate to severe vascular calcification is visiblein the major coronary arteries, relatively greater in the left circumflexartery. No chest wall abnormalities are appreciated. Visualized portionsof the upper abdomen appear normal except for evidence of cholecystectomy and gastric sleeveprocedure. 1. Increasing opacity consistent with pneumonitis in the left upper andlower lobes and new small dependent left pleural effusion compared to10/09/2023. 2. Resolution of pneumonitis in the right middle lobe since 10/09/2023. 3. Stable 10 mm noncalcified nodule in the right upper lobe. 4. No adenopathy is appreciated in the chest. All CT scans at this location are performed using dose modulationtechniques as appropriate to a performed exam including the following:Automated exposure control; adjustment of the mA and/or kV according topatient size (this includes techniques or standardized protocols for targeted exams where dose is matched toindication / reason for exam; i.e. extremities or head); use of iterativereconstruction technique. Finalized on: 12/30/2024 9:36 AM By: Cyrus Caro [facility]# [id number] 2024-12-30 09:38:11.901 [facility] us Art Delacruz MD IM CT ORDERABLES Final Result * 6 minute walk (12/30/2024 8:00 AM CDT) Narrative [facility] - 12/30/2024 8:00 AM CDT [facility] 12/30/2024 8:37 AM Name of the Patient: Sobia Joya Date of test: 12/30/24 [facility] 6 Minute Walk Evaluation Resting Data 1 2 3 4 5 6 Recovery Data Heart Rate 48 36 41 45 55 75 75 48 Blood Pressure 130/76 - - - - - - 138/76 Respiratory Rate 16 18 20 20 24 28 28 16 Oxygen Saturation 98 98 97 97 97 97 97 98 MANINDER 2 2 3 3 3 4 4 2 FiO2 RA RA RA RA RA RA RA RA Modified Jo Ann Dyspnea Scale 0 Not at All 0.5 Just Noticeable 1 Very Slight 2 Slight 3 Moderate 4 Somewhat Severe 5 Severe 6 7 Very Severe 8 9 10 Very, Very Severe Total Distance Walked (feet):550 Number of Rest Stops: 0 Comments: Patient received on room air with a resting saturation of 98%. She was able to walk 550 ft on room air with no rest stops. She used her rolling walker during testing. Unable to obtain B/P while ambulating. MD office called due to low HR. us Art Delacruz MD RT ORDERABLES Final Result * Mammo Digital CAD Screening (07/01/2022 11:33 AM CDT) Anatomical Region Laterality Modality Breast Bilateral Mammography 07/02/2022 5:54 AM CDT Narrative 07/02/2022 5:56 AM CDT REASON FOR EXAM: [Z12.31]-Encounter for screening mammogram for malignant neoplasm of breast TECHNICAL FACTORS: Digital mammography with tomosynthesis was performed of the breasts in the mediolateral oblique and craniocaudal views. CAD was utilized. CLINICAL INFORMATION: This is a female patient for screening mammogram. According to the National Cancer Powers Alice Model risk assessment tool, her lifetime breast cancer risk is 2.7% . COMPARISON: 11/14/2016, 03/06/2015 FINDINGS: There are scattered areas of fibroglandular density. There is no evidence of suspicious mass, calcifications or architectural distortion. Benign calcifications and benign asymmetries are present in the breasts. There is no adverse interval change observed. IMPRESSION: BI-RADS 2 - Benign No mammographic findings of malignancy are identified. Annual mammography is recommended. BREAST DENSITY: Scattered Fibroglandular The patient has been entered into our radiology information system, and she will receive notification approximately 30 days prior to the due date of her next annual screening mammogram. us Sarah Clifford MD IMG MAMMOGRAPHY ORDERABLES Final Result * HM COLONOSCOPY (06/12/2021) Rebeka Youngblood MD HEALTH MAINTENANCE Final Result * POC Occult Blood Stool x3 (06/10/2018 1:47 PM EDI DEVELOPER) FECAL OCCULT BLOOD,SCREEN POC Negative FECAL OCCULT BLOOD,SCREEN POC Negative FECAL OCCULT BLOOD,SCREEN POC Negative Lot Number [id number] Expiration POC Dance Critic POC Anita Internal QC, POC Passed Stool specimen (specimen) 06/10/2018 1:47 PM EDI DEVELOPER Sarah Clifford MD POINT OF CARE TEST ORDERABL ES Final Result * Hepatitis C Antibody (05/05/2018 2:48 PM EDI DEVELOPER) Pathologist [facility] Hepatitis C Ab NON-REACTI VE NON-REACTI VE QUEST Signal to Cutoff 0.55 <1.00 QUEST Blood specimen (specimen) BLOOD SPECIMEN / Unknown 05/05/2018 2:48 PM EDI DEVELOPER 05/08/2018 4:19 AM EDI DEVELOPER Narrative Resulting Agency Comment Performing Organization Information: Site ID: RGA Name: [facility] Address: [address] [place] [address] Director: Oliva Faust Sarah Clifford MD LAB BLOOD ORDERABLES Final Result Performing Organization Address [facility] Co de Phone Number [address] from Last 3 Months or Most Recently Relevant to Health Maintenance Insurance HU[employer] MEDICARE HMO HU[employer]NA MEDICARE HMO Care Teams Samples And Repairs Preparer Relationship Specialty [place] [address] [facility] [address] [place] [address] PCP - General Family Medicine 09/23/22 [place]on Solis [place] [id number] [place] [address] MARIAJOSE FRANKLIN [address] Staff/Attending Physician Pulmonary Disease 02/09/18
--- OUTSIDE RECORDS SUMMARY | 2025-03-24 20:38 | XMS_ITS | Encounter Summary ---
Author Organization [facility] stem Address [address] [address] Care Team Providers Care Grain Processor Name Role Phone Easton Solis MD Unavailable [phone] Brittny Kong MD Primary Care Provider [phone] Encounter Details Date Type Department Care Team (Late st Contact Info) Description 03/22/2025 Results Follow-Up [facility] [address] [place] [address] Rani Smith, LINE ERECTOR [address] [place] [address] Urinalysis with Reflex Social History Tobacco Use Types Packs/Day Years [...] st Contact Info) Description 04/25/2025 10:00 AM FOURDRINIER MACHINE OPERATOR Office Visit [facility] - [address], [address] [place] [address] Brittny Kong MD [address] [place] [address] [address] [place], [place] [id number] 06/09/2025 2:15 PM FOURDRINIER MACHINE OPERATOR Lab [address] [address] [place] [address] [address] [place] [address] 06/16/2025 2:45 PM FOURDRINIER MACHINE OPERATOR Office Visit [facility] [address], [address] [place] [address] [place] [address] [place], [place] [id number] 06/16/2025 3:30 PM FOURDRINIER MACHINE OPERATOR Office Visit [facility] [address] [place] [address], [address] [place] [address] Brittny Kong MD [address] [place] [address] [address] [place], [place] [id number] documented as of this encounter Goals Goal Patient Goal Type Associated Problems Recent Progress Patient-Stated? Author Have 3 meals a day Diet Kamilla Marshall, RN Exercise 3x per week (30 min per time) Exercise No Kamilla Gongora, RN documented as of this encounter Visit Diagnoses Not on filedocumented in this encounter Additional Health Concerns Assessment Noted Time PHQ-9 Depression Total Score: 13 019 10:32 AM CDT PHQ-2 Depression Total Score: 0 03/15/20 25 1:00 PM FOURDRINIER MACHINE OPERATOR documented as of this encounter Care Teams Grain Processor Relationship Specialty Start Date End Date Brittny Kong MD [address] [place] [phone] PCP - General Family Medicine 09/23/22 Easton Solis MD [address] [place] [address] MARIAJOSE FRANKLIN [address] Staff/Attending Physician Pulmonary Disease 02/09/18 documented as of this encounter
--- OUTSIDE RECORDS SUMMARY | 2025-03-24 20:38 | XMS_ITS | Patient Health Record ---
Author Organization [facility] [place] Address [address] [place] [address] Support Name Relationship Address Phone Sobia Joya Guarantor Unknown [phone] Allergies No Known Allergies Reason For Referral No Information Social History Social History Additional Details Category Social Info Options Details Social History Migrated Social History Social History(Migrated Social History): Substance Use :: Does not use tobacco Plan Of Treatment No Information Insurance Providers Payer Name Payer Address Payer Phone Subscriber Number Group Number Insured Name Patient Relationship to Insured Coverage Start Date Coverage End Date [employer] [address] [place] [phone] [id number] Sobia Joya Self - patient is the insured
--- OUTSIDE RECORDS SUMMARY | 2025-03-24 20:39 | XMS_ITS | Encounter Summary ---
Author Organization Nicole mancera of [facility] and Its Subsidiaries and Affiliates Address [address] [address] [place] [address] Care Team Providers Care Bow Maker Custom Name Role Phone Brittny Kong MD Primary Care Provider [phone] Encounter Details Date Type Department Care Team (Late st Contact Info) Description 02/16/2023 Procedure Pass [facility] [address] [facility] [place] [address] Social History Tobacco Use Types Packs/Day Years Used Date Smoking Tobacco: Former Cigarettes 1 40 1 961 - 2001 Smokeless Tobacco: Never Alcohol Use Standard Drinks/Week Comments Not Currently 0 (1 standard drink = 0.6 oz pur e alcohol) Comments Unknown Sex and Gender Information Value Date Recorded Sex Assigned at Not on file Legal Sex Female 10:03 PM CDT Gender Identity Not on file Sexual Orientation Not on file documented as of this encounter Plan of Treatment Upcoming Encounters Date Type Department Care Team (Late st Contact Info) Description 04/29/2025 2:15 PM MUSEUM SERVICE SCHEDULER Office Visit [facility] [address] [facility] [address] [place] [address] Rafael Casey MD [address] [place] [address] documented as of this encounter Visit Diagnoses Not on filedocumented in this encounter Additional Health Concerns Infection Onset Date Last Indicated Resolved Time COVID-19 Confirmed 03/04/2023 03/04/2023 3 10:37 PM MUSEUM SERVICE SCHEDULER Rule Out Respiratory 03/02/2024 03/02/2024 024 11:48 AM MUSEUM SERVICE SCHEDULER Rule Out Respiratory 08/26/2024 08/26/2024 025 4:11 PM CDT documented as of this encounter Care Teams Bow Maker Custom Relationship Specialty [place] [address] [facility] [address] [place] [address] PCP - General Family Medicine 08/26/24 documented as of this encounter
--- OUTSIDE RECORDS SUMMARY | 2025-03-24 20:39 | XMS_ITS | Patient Health Record ---
Author Organization [facility] Address [address] [facility] [place] [facility] [place] [address] Care Team Providers Care Small Stock Facer Name Role Phone AdiBarbie arana Unavailable [phone] BRITTANY YOST Unavailable [phone] Reason For Referral No Information Medications Medication SIG (Take, Route, Frequency, Duration) Notes Start Date End Date Status oxyBUTYnin Chloride ER 10 MG Tablet Extended Release 24 Hour Oral; Duration: 100 Days Active tiZANidine HCl 4 MG Tablet Oral; Duration: 30 Days Active tiZANidine HCl 4 MG Tablet 1 tablet Orally twice a day; Duration: 90 days 02/15/2025 Active Cephalexin 500 MG Capsule Oral; Duration: 98 Days Active Maxslkpnak-NOAW-Rjfsb ine 50-325-40 MG Tablet Oral; Duration: 5 Days Active Losartan Potassium 50 MG Tablet Oral; Duration: 100 Days Active Pantoprazole Sodium 40 MG Tablet Delayed Release Oral; Duration: 90 Days Active Gabapentin 300 MG Capsule Oral; Duration: 90 Days Active Fluticasone Propionate 50 MCG/ACT Suspension Nasal; Duration: 90 Days Active FLUoxetine HCl 20 MG Capsule Oral; Duration: 100 Days Active HYDROcodone-Acetamino phen 10-325 MG Tablet 1 tablet as needed Orally 3 times a day; Duration: 30 days DNF sooner than 30 days from previous. More than 7 days medically necessary for G89.4. 02/15/2025 04/15/2025 Active HYDROcodone-Acetamino phen 10-325 MG Tablet Oral; Duration: 30 Days Active HYDROcodone-Acetamino phen 10-325 MG Tablet 1 tablet as needed Orally 3 times a day; Duration: 30 days DNF sooner than 30 days from previous. More than 7 days medically necessary for G89.4. 02/15/2025 05/13/2025 Active Amoxicillin-Pot Clavulanate 500-125 MG Tablet Oral; Duration: 5 Days Active Mirtazapine 45 MG Tablet Oral; Duration: 100 Days Active Albuterol Sulfate (2.5 MG/3ML) 0.083% Nebulization Solution Inhalation; Duration: 20 Days Active Carvedilol 6.25 MG Tablet Oral; Duration: 100 Days Active Trelegy Ellipta 100-62.5-25 MCG/ACT Aerosol Powder Breath Activated Inhalation; Duration: 90 Days Active Furosemide 20 MG Tablet Oral; Duration: 90 Days Active Albuterol Sulfate HFA 108 (90 Base) MCG/ACT Aerosol Solution Inhalation; Duration: 30 Days Active Fioricet 50-300-40 MG Capsule 1 capsule as needed Orally every 4 hrs 02/15/2025 Active Social History Section Notes: Disabled since 2004 Former smoker No alcohol use Lives alone Problems Problem Type SNOMED Code ICD Code Onset Dates Problem Status W/U Status Risk Notes Problem Chronic pain syndrome (189534456) Chronic pain syndrome (G89.4) Active confirmed Problem Lumbosacral spondylosis without myelopathy (20555208) Other spondylosis, lumbar region (M47.896) Active confirmed Problem Lumbar radiculopathy (958414356) Lumbar radiculopathy (M54.16) Active confirmed Problem Sacroiliitis (65953031) Sacroiliitis (M46.1) Active confirmed Vital Signs Height-cm 170.18 cm 02/15/2025 Weight-kg 99.79 kg 02/15/2025 Height 67 in 02/15/2025 Weight 220 lbs 02/15/2025 BMI 34.45 kg/m2 02/15/2025 Encounters Encounter Location Date Provider Diagnosis [facility] [address] [place] [address] [facility] [place] [address] 02/15/2025 BRITTANY YOST Chronic pain syndrom e G89.4 ; Other spondylosis, lumbar region M47.896 ; Lumbar radiculopathy M54.16 and Sacroiliitis M46.1 [facility] [address] [address] [place] [address] 02/15/2025 Barbie Gaming [facility] [address] [place] [address] [facility] [place] [place] [address] 02/15/2025 Barbie Gaming [facility] [address] [place] [address] [place] [address] 02/28/2025 Barbie Gaming [facility] [address] [place] [address] [place] [address] 03/10/2025 Barbie Gaming Assessments Encounter Date Diagnosis (ICD Code) Assessment Notes Treatment Notes Treatment Clinical Notes Section Notes 02/15/2025 Chronic pain syndrome (ICD-10 - G89.4) - Recommend updated lumbar MRI and discuss interventional treatment options. - Continue to follow up with Dr. 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 Repeat right knee steroid injection with in prn. - Continue Gabapentin 300mg TID PRN, Fioricet and Zforan as needed. - Refill [place] 10/325 mg t.i.d. p.r.n., #90. Three months request forwarded to Dr. Gaming. - Consider lumbar surgical evaluation. Recommend repeat right SI joint injection and repeat right lumbar MBB/RFA at L3-4, L4-5, and L5-S1. Consider lumbar spinal cord stimulator trial if inadequate relief with interventional therapies and if no surgery is recommended. - Patient has failed over many years of conservative therapy including physical therapy, home exercise program, rest, ice, heat, and NSAIDs. - A non-opioid alternative was not appropriate to address the medical condition. The patient reports improved pain, function, activity level, and quality of life as a result of their medication. This plan was discussed with Dr. Gaming who was immediately available in clinic at the time of service. 02/15/2025 Other spondylosis, lumbar region (ICD-10 - M47.896) 02/15/2025 Lumbar radiculopathy (ICD-10 - M54.16) 02/15/2025 Sacroiliitis (ICD-10 - M46.1) Plan Of Treatment Next Appt Details Provider Name:BRITTANY YOST , 05/09/2025 11:45:00 AM, [address], [place], [address], Insurance Providers Payer Name Payer Address Payer Phone Subscriber Number Group Number Insured Name Patient Relationship to Insured Coverage Start Date Coverage End Date [employer] Gold [employer] (Medicar e) [address] [address] [place] [address] [id number] LISA DAVIS Self - patient is the insured Medical (General) History Surgical History Surgery Date(Month/Year) knee
--- OUTSIDE RECORDS SUMMARY | 2025-03-24 20:39 | XMS_ITS | Encounter Summary ---
Author Organization Nicole [place]marie s of [facility] and Its Subsidiaries and Affiliates Address [address] [address] [place] [address] Care Team Providers Care Slurry Tank Tender Name Role Phone Brittny Kong MD Primary Care Provider [phone] Encounter Details Date Type Department Care Team (Late st Contact Info) Description 09/28/2021 Procedure Pass [facility] [address] [place] [address] Social History Tobacco Use Types Packs/Day Years [...] st Contact Info) Description 04/29/2025 2:15 PM SALES ADVISORY MANAGER Office Visit [facility] [address] [place] [address] Rafael Casey MD [address] [place] [address] documented as of this encounter Visit Diagnoses Not on filedocumented in this encounter Additional Health Concerns Infection Onset Date Last Indicated Resolved Time COVID-19 Confirmed 03/04/2023 03/04/2023 3 10:37 PM SALES ADVISORY MANAGER Rule Out Respiratory 03/02/2024 03/02/2024 024 11:48 AM SALES ADVISORY MANAGER Rule Out Respiratory 08/26/2024 08/26/2024 025 4:11 PM CDT documented as of this encounter Care Teams Slurry Tank Tender Relationship Specialty [place] [address] [facility] [address] [place] [address] PCP - General Family Medicine 08/26/24 documented as of this encounter
--- OUTSIDE RECORDS SUMMARY | 2025-03-24 20:39 | XMS_ITS | Encounter Summary ---
Author Organization [facility] Address [address] [place] [address] Care Team Providers Care Mortgage Operations Manager Name Role Phone Easton Solis MD Unavailable [phone] Brittny Kong MD Primary Care Provider [phone] Encounter Details Date Type Department Care Team (Late st Contact Info) Description 03/21/2025 Telephone [facility] [address] [place] [address] [place], [place] Social History Tobacco Use Types Packs/Day Years [...] Lenard Gunn MA documented in this encounter Miscellaneous Notes * Telephone Encounter - Melvin Melendez MA - 03/21/2025 11:19 AM ENTERPRISE ANALYST UA order RPRISE ANALYST documented in this encounter Plan of Treatment Upcoming Encounters Date Type Department Care Team (Late st Contact Info) Description 04/25/2025 10:00 AM ENTERPRISE ANALYST Office Visit [facility] - [address], [address] [place] [address] Brittny Kong MD [address] [place] [address] [address] [place], [place] [id number] 06/09/2025 2:15 PM ENTERPRISE ANALYST Lab [address] [address] [place] [address] SUD[address]AKAR DARBY MD [address] [id number] 06/16/2025 2:45 PM ENTERPRISE ANALYST Office Visit [facility] [place] [address] [place] [address], [address] [place] [address] [place] [address], [address] [place] [address] 06/16/2025 3:30 PM ENTERPRISE ANALYST Office Visit [facility] [place] [address] [place] [address], [address] [place] [address] [place] [address] [facility] [address] [place] [address] documented as of this encounter Goals Goal Patient Goal Type Associated Problems Recent Progress Patient-Stated? Author Have 3 meals a day Diet No Kamilla Gongora, RN Exercise 3x per week (30 min per time) Exercise No Kamilla Gongora RN documented as of this encounter Procedures Procedure Name Priority Date/Time Associated Diagnosis Comments UA WITH REFLEX Routine 03/21/2025 11:10 AM ENTERPRISE ANALYST Recurrent UTI URINE CULTURE Routine 03/21/2025 11:10 AM ENTERPRISE ANALYST documented in this encounter Results * Urine Culture (03/21/2025 11:10 AM ENTERPRISE ANALYST) Urine Culture, Routine [facility] Comment: CULTURE, URINE, ROUTINE Micro Number: [id number] Test Status: Final Specimen Source: Urine Specimen Quality: Adequate Result: Upon further incubation: Mixed genital jerald isolated. These superficial bacteria are not indicative of a urinary tract infection. No further organism identification is warranted on this specimen. If clinically indicated, recollect clean-catch, mid-stream urine and transfer immediately to Urine Culture Transport Tube. 03/21/2025 11:1 0 AM ENTERPRISE ANALYST 03/22/2025 4:19 AM ENTERPRISE ANALYST Narrative Resulting Agency Comment Performing Organization Information: Site ID: [id number] Name: [facility] Address: [address] [place] [phone] Director: Sherly Murphy Performing Organization Information: Site ID: [id number] Name: [facility] Address: [address] [place] [phone] Director: Sherly Murphy us Rani Smith NP MICROBIOLOGY - GENERAL ORD ERABLES Final Result Performing Organization Address [facility] Co de Phone Number [facility] [address] * (ABNORMAL) Urinalysis with Reflex (03/21/2025 11:10 AM ENTERPRISE ANALYST) Color, Urine: YELLOW YELLOW [facility] Appearance CLOUDY(A) CLEAR [facility] Specific [place], Urine 1.024 1.001 - 1.035 [facility] pH, [...] seen were reported. 03/21/2025 11:1 0 AM ENTERPRISE ANALYST 03/22/2025 4:19 AM ENTERPRISE ANALYST Narrative Resulting Agency Comment Performing Organization Information: Site ID: A Name: [facility] Address: [address] [place] [phone] Director: Sherly Murphy Performing Organization Information: Site ID: [facility] Name: [facility] Address: [address] [place] [phone] Director: Sherly Murphy us Rani Smith NP URINE ORDERABLES Final Res ult Performing Organization Address [facility] Co de Phone Number [facility] [address] documented in this encounter Visit Diagnoses Diagnosis Recurrent UTI- Primary Urinary tract infection, site not specified documented in this encounter Additional Health Concerns Assessment Noted Time PHQ-9 Depression Total Score: 13 019 10:32 AM CDT PHQ-2 Depression Total Score: 0 03/15/20 25 1:00 PM ENTERPRISE ANALYST documented as of this encounter Care Teams Mortgage Operations Manager Relationship Specialty [place] [address] [facility] [address] [place] [address] PCP - General Family Medicine 09/23/22 [place] [id number] [place] [address] [place] [address] Staff/Attending Physician Pulmonary Disease 02/09/18 documented as of this encounter
--- OUTSIDE RECORDS SUMMARY | 2025-03-24 20:39 | XMS_ITS | Encounter Summary ---
Author Organization Nicole bensons of [facility] and Its Subsidiaries and Affiliates Address [address] [address] [place] [address] Care Team Providers Care Construction Estimator Name Role Phone Brittny Kong MD Primary Care Provider [phone] Encounter Details Date Type Department Care Team (Late st Contact Info) Description 03/02/2024 Procedure Pass [facility] [place] [address] [facility] [place] [address] Social History Tobacco Use Types Packs/Day Years Used Date Smoking Tobacco: Former Cigarettes 1 40 1 961 - 2001 Smokeless Tobacco: Never Alcohol Use Standard Drinks/Week Comments Not Currently 0 (1 standard drink = 0.6 oz pur e alcohol) [facility] Utilities Answer Date Recorded In the past 12 months has [facility] [employer], gas, oil, or water company threatened to shut off services in your home? No 04/16/2023 Humiliation, Afraid, Rape, and Kick questionnair e Answer Date Recorded Within the last year, have y ou been afraid of your partner or ex-partner? No 04/16/2023 Within the last year, have y ou been humiliated or emotionally abused in other ways by your partner or ex-partner? No Within the last year, have y ou been kicked, hit, slapped, or otherwise physically hurt by your partner or ex-partner? No 04/16/2023 Within the last year, have y ou been raped or forced to have any kind of sexual activity by your partner or ex-partner? No 04/16/2023 Social Connection and Isolation Panel Answer Date Recorded In a typical week, how many times do you talk on the phone with family, friends, or neighbors? More than three times a week 04/16/2023 Frequency of Social Gatherin gs with Friends and Family Not on file 04/16/2023 How often do you attend chur ch or sikhism services? Never 04/16/2023 Do you belong to any clubs o r organizations such as rastafari groups, unions, fraternal or athletic groups, or school groups? No 04/16/2023 How often do you attend meet ings of the clubs or organizations you belong to? Never 04/16/2023 Are you , , di vorced, , never , or living with a partner? 04/16/2023 AUDIT-C Answer Date Recorded Q1: How often do you have a drink containing alcohol? Never 04/16/2023 Q2: How many drinks containi ng alcohol do you have on a typical day when you are drinking? Patient does not drink Q3: How often do you have si x or more drinks on one occasion? Never 04/16/2023 Overall Financial Resource Strain (CARDIA) Answe r Date Recorded How hard is it for you to pa y for the very basics like food, housing, medical care, and heating? Not hard at all 04/16/2023 [facility] of Occupat ional Health - Occupational Stress Questionnaire Answer Date Recorded Do you feel stress - tense, restless, nervous, or anxious, or unable to sleep at night because your mind is troubled all the time - these days? Only a little 04/16/2023 Exercise Vital Sign Answer Date Recorde d On average, how many days pe r week do you engage in moderate to strenuous exercise (like a brisk walk)? 7 days 04/16/2023 On average, how many minutes do you engage in exercise at this level? 10 min 04/16/2023 Hunger Vital Sign Answer Date Recorded Within the past 12 months, y ou worried that your food would run out before you got the money to buy more. Never true 04/16/20 23 Within the past 12 months, t he food you bought just didn't last and you didn't have money to get more. Never true 04/16/2023 PRAPARE - Transportation Answer Date Re corded In the past 12 months, has l ack of transportation kept you from medical appointments or from getting medications? No 03/22 In the past 12 months, has l ack of transportation kept you from meetings, work, or from getting things needed for daily living? No 04/16/2023 Housing Stability Vital Sign Answer Bandar e Recorded In the last 12 months, was t here a time when you were not able to pay the mortgage or rent on time? No 04/16/2023 Number of Places Lived in the Last Year Not on f ile 04/16/2023 In the last 12 months, was t here a time when you did not have a steady place to sleep or slept in a fci (including now)? No 04/16/2023 Comments No Sex and Gender Information Value Date Recorded Sex Assigned at Not on file Legal Sex Female 10:03 PM CDT Gender Identity Not on file Sexual Orientation Not on file documented as of this encounter Functional Status * Calculated C-SSRS Risk Score (Lifetime/Recent) Answer Date of Assessment Author No Risk Indicated 03/02/2024 11:24 AM Rena Luu RN * [place] Suicide Severity Rating Scale (Screener/Recent Self-Report) Question Answer Date of Assessment Author 1. Wish to be (Past 1 Month) No 024 11:24 AM Rena Luu RN 2. Non-Specific Active Suici [place] Thoughts (Past 1 Month) No 03/02/2024 11:24 AM Sia Luu RN 6. Suicidal Behavior (Lifetime) No 4 11:24 AM Rena Luu RN documented as of this encounter Plan of Treatment Upcoming Encounters Date Type Department Care Team (Late st Contact Info) Description 04/29/2025 2:15 PM MANAGER HEMATOLOGY [facility] [address] [place] [phone] Rafael Casey MD [address] [place] [address] documented as of this encounter Visit Diagnoses Not on filedocumented in this encounter Additional Health Concerns Infection Onset Date Last Indicated Resolved Time Rule Out Respiratory 03/02/2024 03/02/2024 024 11:48 AM MANAGER HEMATOLOGY Rule Out Respiratory 08/26/2024 08/26/2024 025 4:11 PM CDT documented as of this encounter Care Teams Construction Estimator Relationship Specialty [place] [address] [facility] [address] [place] [address] PCP - General Family Medicine 08/26/24 documented as of this encounter
--- OUTSIDE RECORDS SUMMARY | 2025-03-24 20:39 | XMS_ITS | Encounter Summary ---
Author Organization Nicole mancera of [facility] and Its Subsidiaries and Affiliates Address [address] [address] [place] [address] Care Team Providers Care Pattern Changer Name Role Phone Brittny Kong MD Primary Care Provider [phone] Encounter Details Date Type Department Care Team (Late st Contact Info) Description 02/16/2023 Procedure Pass [facility] [address] [facility] [place] [address] Social History Tobacco [...] st Contact Info) Description 04/29/2025 2:15 PM TROUBLE LOCATOR TEST DESK Office Visit [facility] [address] [facility] [address] [place] [address] Rafael Casey MD [address] [place] [address] documented as of this encounter Visit Diagnoses Not on filedocumented in this encounter Additional Health Concerns Infection Onset Date Last Indicated Resolved Time COVID-19 Confirmed 03/04/2023 03/04/2023 3 10:37 PM TROUBLE LOCATOR TEST DESK Rule Out Respiratory 03/02/2024 03/02/2024 024 11:48 AM TROUBLE LOCATOR TEST DESK Rule Out Respiratory 08/26/2024 08/26/2024 025 4:11 PM CDT documented as of this encounter Care Teams Pattern Changer Relationship Specialty [place] [address] [facility] [address] [place] [address] PCP - General Family Medicine 08/26/24 documented as of this encounter
--- OUTSIDE RECORDS SUMMARY | 2025-03-24 20:39 | XMS_ITS | Encounter Summary ---
Author Organization Nicole Tualatinmarie madelyn of [facility] and Its Subsidiaries and Affiliates Address [address] [address] [place] [address] Care Team Providers Care Assistant Offset Press Operator Name Role Phone Brittny Kong MD Primary Care Provider [phone] Encounter Details Date Type Department Care Team (Late st Contact Info) Description 02/27/2021 Procedure Pass [facility] [address] [place] [address] Social History Tobacco Use Types Packs/Day Years [...] st Contact Info) Description 04/29/2025 2:15 PM DATA LEAD [facility] Visit [facility] [address] [place] [address] Rafael Casey MD [address] [place] [address] documented as of this encounter Visit Diagnoses Not on filedocumented in this encounter Additional Health Concerns Infection Onset Date Last Indicated Resolved Time COVID-19 Confirmed 03/04/2023 03/04/2023 3 10:37 PM DATA LEAD Rule Out Respiratory 03/02/2024 03/02/2024 024 11:48 AM DATA LEAD Rule Out Respiratory 08/26/2024 08/26/2024 025 4:11 PM CDT documented as of this encounter Care Teams Assistant Offset Press Operator Relationship Specialty [place] [address] [facility] [address] [place] [address] PCP - General Family Medicine 08/26/24 documented as of this encounter
--- OUTSIDE RECORDS SUMMARY | 2025-03-24 20:39 | XMS_ITS ---
Author Organization [facility] Care Team Providers Care Crutching Contractor Name Role Phone Thanh Pino Unavailable Unavailable Allergies and adverse reactions No Known Allergies Care Team Name Role Address Phone Organization Dates Thanh Pino PCP [address], [place], [address], [place] (Office): : [facility] 02/24/2023 - 03/16/2023 Mental Status Section Date Assessment Total Score Description 03/16/2023 BIMS 15 cognitively int act CAM 0 No delirium ind icated PHQ-9 0 03/02/2023 BIMS 15 cognitively int act CAM 0 No delirium ind icated PHQ-9 0 Insurance Providers Problems Problem # Description Date of onset Resolved Date Code CodeSystem Concern Status 1 COVID-19 03/03/[address] active 2 GASTRO-ESOPHAGEAL REFLUX DISEASE WITHOUT ESOPHAGITIS 02/28/[address] active 3 OTHER INSOMNIA 02/27/[address] ac tive 4 MUSCLE WEAKNESS (GENERALIZED) 02/25/[address] active 5 OTHER LACK OF COORDINATION 02/25/[address] active 6 OTHER REDUCED MOBILITY 02/25/[address] active 7 UNSTEADINESS ON FEET 02/25/[address] active 8 AFTERCARE FOLLOWING JOINT REPLACEMENT SURGERY 02/24/[address] active 9 CHRONIC KIDNEY DISEASE, STAGE 3 UNSPECIFIED 02/24/[address] active 10 CHRONIC SYSTOLIC (CONGESTIVE) HEART FAILURE 02/24/[address] active 11 EDEMA, UNSPECIFIED 02/24/2023 [address] C T active 12 ENCOUNTER FOR PROPHYLACTIC MEASURES, UNSPECIFIED 02/24/[address] active 13 ESSENTIAL (PRIMARY) HYPERTENSION 02/24/[address] active 14 MAJOR DEPRESSIVE DISORDER, SINGLE EPISODE, UNSPECIFIED 02/24/[address] active 15 OTHER ALLERGIC RHINITIS 02/24/[address] active 16 OTHER CONSTIPATION 02/24/[address] active 17 OTHER HYPERLIPIDEMIA 02/24/[address] active 18 OTHER MUSCLE SPASM 02/24/[address] active 19 OTHER SYMPTOMS AND SIGNS INVOLVING THE MUSCULOSKELETAL SYSTEM 02/24/[address] active 20 OTHER VITAMIN B12 DEFICIENCY ANEMIAS 02/24/[address] active 21 OVERACTIVE BLADDER 02/24/2023 506808875 SNOM[address] C T active 22 PAIN, UNSPECIFIED 02/24/[address] active 23 PRIMARY OSTEOARTHRITIS, UNSPECIFIED SITE 02/24/[address] active 24 SHORTNESS OF BREATH 02/24/[address] active 25 VITAMIN DEFICIENCY, UNSPECIFIED 02/24/[address] active Reason for Referral No Reasons for Referral Entered Social History Social History Observation Description Start Date End Date Code Code System Current Smoking Status Tobacco smoking consumption unknown 870672765 SNOMED CT Sex Assigned At Female 1945 72864-2 [facility] Gender Identity Sexual Orientation Vital Signs Code Code System Vitals Name Values and Units Timing Information 9279-1 LOINC Respiratory Rate Value=18.0 Units=/m in 03/16/2023 8462-4 LOINC Blood Pressure-Diastolic Value=78 Un its=mmHg 03/16/2023 8480-6 LOINC Blood Pressure-Systolic Woceg=965 Un its=mmHg 03/16/2023 8310-5 [facility] Body Temperature Value=97.9 Units= F 03/16/2023 8867-4 [facility] Heart rate Value=77.0 Units=/min 57333-0 [facility] O2 % BldC Oximetry Value=97.0 Units= % 03/16/2023 10372-6 [facility] Pain Level Value=5.0 03/11/2023 36405-0 LOINC Weight Xwzgd=820.0 Units=Lbs 11/2022 8302-2 [facility] Height Value=67.0 Units=Inches 02/24/2023
--- OUTSIDE RECORDS SUMMARY | 2025-03-24 20:39 | XMS_ITS | Encounter Summary ---
Author Organization [facility] stem Address [address] [place] [address] Care Team Providers Care Food Service Manager Name Role Phone Sarah Clifford MD Primary Care Provider [phone] Easton Solis MD Unavailable [phone] Brittny Kong MD Primary Care Provider [phone] Encounter Details Date Type Department Care Team (Latest Contact Info) Description 05/31/[address] [facility] [address], [address] [place] [address] Kamilla Gongora RN Screening for osteoporosis (Primary Dx); Menopause; Breast cancer screening Social History Tobacco Use Types Packs/Day Years Used Date Smoking Tobacco: Former Cigarettes 1.5 40 0 12/30/1960 - 12/30/2000 Smokeless Tobacco: Never Comments:QUIT 15 YEARS AGO Alcohol Use Standard Drinks/Week Comments No 0 (1 standard drink = 0.6 oz pur e alcohol) Sexually Active Control Partners Comments Never Comments No Sex and Gender Information Value Date Recorded Sex Assigned at Not on file Legal Sex Female 3:39 PM CDT Gender Identity Not on file Sexual Orientation Not on file documented as of this encounter Patient Instructions * Patient Instructions* Kamilla Gongora LPN - 05/31/2016 2:42 PM SENIOR SYSTEMS ARCHITECT Images from the original note were not included. Fall Prevention in the Home Falls can cause injuries. They can happen to people of all ages. There are many things you can do to make your home safe and to help prevent falls. WHAT CAN I DO ON THE OUTSIDE OF MY HOME? ?? Regularly fix the edges of walkways and driveways and fix any cracks. ?? Remove anything that might make you trip as you walk through a door, such as a raised step or threshold. ?? Trim any bushes or trees on the path to your home. ?? Use bright outdoor lighting. ?? Clear any walking paths of anything that might make someone trip, such as rocks or tools. ?? Regularly check to see if handrails are loose or broken. Make sure that both sides of any steps have handrails. ?? Any raised decks and porches should have guardrails on the edges. ?? Have any leaves, snow, or ice cleared regularly. ?? Use sand or salt on walking paths during winter. ?? Clean up any spills in your garage right away. This includes oil or grease spills. WHAT CAN I DO IN THE BATHROOM? ?? Use night lights. ?? Install grab bars by the toilet and in the tub and shower. Do not use towel bars as grab bars. ?? Use non-skid mats or decals in the tub or shower. ?? If you need to sit down in the shower, use a plastic, non-slip stool. ?? Keep the floor dry. Clean up any water that spills on the floor as soon as it happens. ?? Remove soap buildup in the tub or shower regularly. ?? Attach bath mats securely with double-sided non-slip rug tape. ?? Do not have throw rugs and other things on the floor that can make you trip. WHAT CAN I DO IN THE BEDROOM? ?? Use night lights. ?? Make sure that you have a light by your bed that is easy to reach. ?? Do not use any sheets or blankets that are too big for your bed. They should not hang down onto the floor. ?? Have a firm chair that has side arms. You can use this for support while you get dressed. ?? Do not have throw rugs and other things on the floor that can make you trip. WHAT CAN I DO IN THE KITCHEN? ?? Clean up any spills right away. ?? Avoid walking on wet floors. ?? Keep items that you use a lot in znha-cp-zkljw places. ?? If you need to reach something above you, use a strong step stool that has a grab bar. ?? Keep electrical cords out of the way. ?? Do not use floor kiswahili or wax that makes floors slippery. If you must use wax, use non-skid floor wax. ?? Do not have throw rugs and other things on the floor that can make you trip. WHAT CAN I DO WITH MY STAIRS? ?? Do not leave any items on the stairs. ?? Make sure that there are handrails on both sides of the stairs and use them. Fix handrails that are broken or loose. Make sure that handrails are as long as the stairways. ?? Check any carpeting to make sure that it is firmly attached to the stairs. Fix any carpet that is loose or worn. ?? Avoid having throw rugs at the top or bottom of the stairs. If you do have throw rugs, attach them to the floor with carpet tape. ?? Make sure that you have a light switch at the top of the stairs and the bottom of the stairs. Ifyou do not have them, ask someone to add them for you. WHAT ELSE CAN I DO TO HELP PREVENT FALLS? ?? Wear shoes that: Do not have high heels. Have rubber bottoms. Are comfortable and fit you well. Are closed at the toe. Do not wear sandals. ?? If you use a stepladder: Make sure that it is fully opened. Do not climb a closed stepladder. Make sure that both sides of the stepladder are locked into place. Ask someone to hold it for you, if possible. ?? Clearly lisbeth and make sure that you can see: Any grab bars or handrails. First and last steps. Where the edge of each step is. ?? Use tools that help you move around (mobility aids) if they are needed. These include: Canes. Walkers. Scooters. Crutches. ?? Turn on the lights when you go into a dark area. Replace any light bulbs as soon as they burn out. ?? Set up your furniture so you have a clear path. Avoid moving your furniture around. ?? If any of your floors are uneven, fix them. ?? If there are any pets around you, be aware of where they are. ?? Review your medicines with your doctor. Some medicines can make you feel dizzy. This can increase your chance of falling. Ask your doctor what other things that you can do to help prevent falls. This information is not intended to replace advice given to you by your health care provider. Make sure you discuss any questions you have with your health care provider. Document Released: 02/01/2010 Document Revised: 08/22/2015 Document Reviewed: 05/12/2015 [employer] Patient Education ??2016 [employer]. Advance Directive Advance directives are the legal documents that allow you to make choices about your health care and medical treatment if you cannot speak for yourself. Advance directives are a way for you to communicate your wishes to family, friends, and health care providers. The specified people can then convey your decisions about end-of-life care to avoid confusion if you should become unable to communicate. Ideally, the process of discussing and writing advance directives should happen over time rather than making decisions all at once. Advance directives can be modified as your situation changes, and you can change your mind at any time, even after you have signed the advance directives. Each state has its own laws regarding advance directives. ??You may want to check with your health care provider, assistant district attorney, or state customer sales representative about the law in your state. Below are some examples of advance directives. LIVING WILL A living will is a set of instructions documenting your wishes about medical care when you cannot care for yourself. It is used if you become: ?? Terminally ill. ?? Incapacitated. ?? Unable to communicate. ?? Unable to make decisions. Items to consider in your living will include: ?? The use or non-use of life-sustaining equipment, such as dialysis machines and breathing machines (ventilators). ?? A do not resuscitate (DNR) order, which is the instruction not to use cardiopulmonary resuscitation (CPR) if breathing or heartbeat stops. ?? Tube feeding. ?? Withholding of food and fluids. ?? Comfort (palliative) care when the goal becomes comfort rather than a cure. ?? Organ and tissue donation. A living will does not give instructions about distribution of your money and property if you should pass away. It is advisable to seek the expert advice of a ward nurse in drawing up a will regarding your possessions. Decisions about taxes, beneficiaries, and asset distribution will be legally binding. This process can relieve your family and friends of any burdens surrounding disputes or questions that may come up about the allocation of your assets. DO NOT RESUSCITATE (DNR) A do not resuscitate (DNR) order is a request to not have CPR in the event that your heart stops beating or you stop breathing. Unless given other instructions, a health care provider will try to help any patient whose heart has stopped or who has stopped breathing. HEALTH CARE PROXY AND DURABLE POWER OF RAND MAKER FOR HEALTH CARE A health care proxy is a person (agent) appointed to make medical decisions for you if you cannot. Generally, people choose someone they know well and trust to represent their preferences when they can no longer do so. You should be sure to ask this person for agreement to act as your agent. An agent may have to exercise judgment in the event of a medical decision for which your wishes are not known. The durable power of assistant district attorney for health care is the legal document that names your health care proxy. Once written, it should be: ?? Signed. ?? Notarized. ?? Dated. ?? Copied. ?? Witnessed. ?? Incorporated into your medical record. You may also want to appoint someone to manage your financial affairs if you cannot. This is calleda durable power of assistant district attorney for finances. It is a separate legal document from the durable power ofattorney for health care. You may choose the same person or someone different from your health careproxy to act as your agent in financial matters. This information is not intended to replace advice given to you by your health care provider. Make sure you discuss any questions you have with your health care provider. Document Released: 07/14/2008 Document Revised: 04/12/2014 Document Reviewed: 08/25/2013 [employer] Interactive Patient Education ??2016 [employer] OR SYSTEMS ARCHITECT OR SYSTEMS ARCHITECT documented in this encounter Plan of Treatment Upcoming Encounters Date Type Department Care Team (Late st Contact Info) Description 04/25/2025 10:00 AM SENIOR SYSTEMS ARCHITECT Office Visit [facility] - [address], [address] [place] [phone] Brittny Kong MD [address] [place] [phone] 06/09/2025 2:15 PM SENIOR SYSTEMS ARCHITECT Lab [address] [phone] [place] [address] [address] MD, DR [facility] [address] [place] [address] 06/16/2025 2:45 PM SENIOR SYSTEMS ARCHITECT Office Visit [facility] [address], [address] [place] [phone] [place] [address] [address] DARBY MD, DR [address] [phone] 06/16/2025 3:30 PM SENIOR SYSTEMS ARCHITECT Office Visit [facility] - [address], [address] [phone] Brittny Kong MD [address] [place] [address] documented as of this encounter Goals Goal Patient Goal Type Associated Problems Recent Progress Patient-Stated? Author Have 3 meals a day Diet No Kamilla Gongora, RN Exercise 3x per week (30 min per time) Exercise No Kamilla Gongora RN documented as of this encounter Visit Diagnoses Diagnosis Screening for osteoporosis- Primary Special screening for osteoporosis Menopause Symptomatic menopausal or female climacteric states documented in this encounter Care Teams Food Service Manager Relationship Specialty Start Date End Date Sarah Clifford MD PCP - General Internal Medicine 01/16/15 09/22/22 [place] [address] [facility] [address] [place] [address] PCP - General Family Medicine 09/23/22 [place] [address] [facility] [place] [address] Staff/Attending Physician Pulmonary Disease 02/09/18 documented as of this encounter
--- OUTSIDE RECORDS SUMMARY | 2025-03-24 20:39 | XMS_ITS | Encounter Summary ---
Author Organization [facility] stem Address [address] [place] [address] Care Team Providers Care Sandwich Hand Name Role Phone Easton Solis MD Unavailable [phone] Brittny Kong MD Primary Care Provider [phone] Encounter Details Date Type Department Care Team (Latest Contact Info) Description 01/17/2025 Results Follow-Up [facility] - [address], [address] [place] [phone] Brittny Kong MD [address] [place] [phone] Comprehensive metabolic panel, Lipid panel, Microalbumin/Creatinin e Ratio, Random Urine, Hemoglobin A1c Social History Tobacco Use Types Packs/Day Years [...] st Contact Info) Description 04/25/2025 10:00 AM ROUTE AGENT Office Visit [facility] - [address], [address] [place] [address] Brittny Kong MD [address] [place] [address] [address] [place] [address] 06/09/2025 2:15 PM ROUTE AGENT Lab [address] [phone] [place] [address] SUDHAKAR DARBY MD [address] [place] [phone] 06/16/2025 2:45 PM ROUTE AGENT Office Visit [facility] [place] [address] [place] [address], [address] [place] [phone] [place] [address] [address] MD, DR [facility] [address] [place] [phone] 06/16/2025 3:30 PM ROUTE AGENT Office Visit [facility] [place] [address] [place] [address], [address] [place] [address] Brittny Kong [place] [id number] [place] [address] [address] [place] [address] documented as of this encounter Goals Goal Patient Goal Type Associated Problems Recent Progress Patient-Stated? Author Have 3 meals a day Diet No Kamilla Gongora RN Exercise 3x per week (30 min per time) Exercise No Kamilla Gongora RN documented as of this encounter Visit Diagnoses Not on filedocumented in this encounter Additional Health Concerns Assessment Noted Time PHQ-9 Depression Total Score: 13 09/21/ 019 10:32 AM CDT PHQ-2 Depression Total Score: 2 01/14/20 25 2:43 PM CDT documented as of this encounter Care Teams Sandwich Hand Relationship Specialty Start Date End Date Britt[place] Kong [place] [id number] [place] [address] [address] [place] [address] PCP - General Family Medicine 09/23/22 Easton Solis MD [address] [place] [address] [place] [address] Staff/Attending Physician Pulmonary Disease 02/09/18 documented as of this encounter
--- OUTSIDE RECORDS SUMMARY | 2025-03-24 20:39 | XMS_ITS | Encounter Summary ---
Author Organization Nicole [facility] Address [address] [address] [place] [address] Care Team Providers Care Right Of Way Clearer Name Role Phone Brittny Kong MD Primary Care Provider [phone] Encounter Details Date Type Department Care Team (Late st Contact Info) Description 02/18/2023 Procedure Pass [facility] [address] [facility] [place] [address] Social History Tobacco [...] st Contact Info) Description 04/29/2025 2:15 PM GROCERY DEPARTMENT MANAGER Office Visit [facility] [address] [facility] [address] [place] [phone] Rafael Casey MD [address] [place] [address] documented as of this encounter Visit Diagnoses Not on filedocumented in this encounter Additional Health Concerns Infection Onset Date Last Indicated Resolved Time COVID-19 Confirmed 03/04/2023 03/04/2023 3 10:37 PM GROCERY DEPARTMENT MANAGER Rule Out Respiratory 03/02/2024 03/02/2024 024 11:48 AM GROCERY DEPARTMENT MANAGER Rule Out Respiratory 08/26/2024 08/26/2024 025 4:11 PM CDT documented as of this encounter Care Teams Right Of Way Clearer Relationship Specialty [place] [address] [facility] [address] [place] [address] PCP - General Family Medicine 08/26/24 documented as of this encounter
--- OUTSIDE RECORDS SUMMARY | 2025-03-24 20:39 | XMS_ITS | Encounter Summary ---
Author Organization Nicole [facility]ons of [facility] Address [address] [address] [place] [address] Care Team Providers Care Bone Grinder Name Role Phone Brittny Kong MD Primary Care Provider [phone] Encounter Details Date Type Department Care Team (Late st Contact Info) Description 03/02/2024 Procedure Pass [facility] [place] [address] [address] [facility] [place] [address] Social History Tobacco Use Types Packs/Day Years Used Date Smoking Tobacco: Former Cigarettes 1 40 1 961 - 2001 Smokeless Tobacco: Never Alcohol Use Standard Drinks/Week Comments Not Currently 0 (1 standard drink = 0.6 oz pur e alcohol) [facility] Utilities Answer Date Recorded In the past 12 months has [facility] Hobby, gas, oil, or water company threatened to [...] often do you attend chur ch or bahai services? Never 04/16/2023 Do you belong to any clubs o r organizations such as yazidism groups, unions, fraternal or athletic groups, or [...] and heating? Not hard at all 04/16/2023 [facility] [place] of Occupat ional Health - Occupational Stress [...] place to sleep or slept in a half-way (including now)? No 04/16/2023 Comments No Sex and Gender Information Value Date Recorded Sex Assigned at Not on file Legal Sex Female 10:03 PM CDT Gender Identity Not on file Sexual Orientation Not on file documented as of this encounter Functional Status * Calculated C-SSRS Risk Score (Lifetime/Recent) Answer Date of Assessment Author No Risk Indicated 03/02/2024 11:24 AM Rena Luu RN * [place] Suicide Severity Rating Scale (Screener/Recent Self-Report) Question [...] st Contact Info) Description 04/29/2025 2:15 PM RESIDENT DIRECTOR [facility] [address] [facility] [address] [place] [phone] Rafael Casey MD [address] [place] [address] documented as of this encounter Visit Diagnoses Not on filedocumented in this encounter Additional Health Concerns Infection Onset Date Last Indicated Resolved Time Rule Out Respiratory 03/02/2024 03/02/2024 024 11:48 AM RESIDENT DIRECTOR Rule Out Respiratory 08/26/2024 08/26/2024 025 4:11 PM CDT documented as of this encounter Care Teams Bone Grinder Relationship Specialty [place] [address] [facility] [address] [place] [address] PCP - General Family Medicine 08/26/24 documented as of this encounter
--- OUTSIDE RECORDS SUMMARY | 2025-03-24 20:39 | XMS_ITS | Encounter Summary ---
Author Organization Nicole bensons of [facility] and Its Subsidiaries and Affiliates Address [address] [address] [place] [address] Care Team Providers Care Residential Door Unit Installer Name Role Phone Brittny Kong MD Primary Care Provider [phone] Encounter Details Date Type Department Care Team (Late st Contact Info) Description 01/14/2025 Procedure Pass [facility] [place] [address] [facility] [place] [address] Social History Tobacco Use Types Packs/Day Years Used Date Smoking Tobacco: Former Cigarettes 1 40 1 961 - 2001 Smokeless Tobacco: Never Alcohol Use Standard Drinks/Week Comments Not Currently 0 (1 standard drink = 0.6 oz pur e alcohol) [facility] Utilities Answer Date Recorded In the past 12 months has [facility] [employer], gas, oil, or water [employer] threatened to shut off services in your [...] often do you attend chur ch or religion services? Never 04/16/2023 Do you belong to any clubs o r organizations such as religious groups, unions, fraternal or athletic groups, or [...] and heating? Not hard at all 04/16/2023 [facility] Occupat ional Health - Occupational Stress [...] place to sleep or slept in a alf (including now)? No 04/16/2023 Comments No Sex and Gender Information Value Date Recorded Sex Assigned at Not on file Legal Sex Female 10:03 PM CDT Gender Identity Not on file Sexual Orientation Not on file documented as of this encounter Plan of Treatment Upcoming Encounters Date Type Department Care Team (Late st Contact Info) Description 04/29/2025 2:15 PM SAP ARCHITECT Office Visit [facility] [address] [place] [address] Rafael Casey MD [address] [facility] [address] [place], [place] [phone] documented as of this encounter Visit Diagnoses Not on filedocumented in this encounter Care Teams Residential Door Unit Installer Relationship Specialty [place] [address] [facility] [address] [place] [address] PCP - General Family Medicine 08/26/24 documented as of this encounter
--- OUTSIDE RECORDS SUMMARY | 2025-03-24 20:39 | XMS_ITS | Encounter Summary ---
Author Organization Nicole bensons of [facility] and Its Subsidiaries and Affiliates Address [address] [address] [place] [address] Care Team Providers Care Solid Waste Truck Driver Name Role Phone Brittny Kong MD Primary Care Provider [phone] Encounter Details Date Type Department Care Team (Late st Contact Info) Description 08/26/2024 Procedure Pass [facility] [place] [address] [address] [facility] [place] [address] Social History Tobacco Use Types Packs/Day Years Used Date Smoking Tobacco: Former Cigarettes 1 40 1 961 - 2001 Smokeless Tobacco: Never Alcohol Use Standard Drinks/Week Comments Not Currently 0 (1 standard drink = 0.6 oz pur e alcohol) [facility] Utilities Answer Date Recorded In the past 12 months has [facility] [employer], gas, oil, or water company threatened to [...] often do you attend chur ch or uatsdin services? Never 04/16/2023 Do you belong to any clubs o r organizations such as baptist groups, unions, fraternal or athletic groups, or [...] and heating? Not hard at all 04/16/2023 [facility] of Occupat ional Health - Occupational Stress [...] place to sleep or slept in a fpc (including now)? No 04/16/2023 Comments No Sex and Gender Information Value Date Recorded Sex Assigned at Not on file Legal Sex Female 10:03 PM CDT Gender Identity Not on file Sexual Orientation Not on file documented as of this encounter Functional Status * Calculated C-SSRS Risk Score (Lifetime/Recent) Answer Date of Assessment Author No Risk Indicated 08/26/2024 3:08 PM Nery Farrar RN * Jackson Suicide Severity Rating Scale (Screener/Recent Self-Report) Question Answer Date of Assessment Author 1. Wish to be (Past 1 Month) No 025 3:08 PM Nery Farrar, JONI 2. Non-Specific Active Suici [place] Thoughts (Past 1 Month) No 08/26/2024 3:08 PM Lanie Farrar RN 6. Suicidal Behavior (Lifetime) No 5 3:08 PM Nery Farrar RN documented as of this encounter Plan of Treatment Upcoming Encounters Date Type Department Care Team (Late st Contact Info) Description 04/29/2025 2:15 PM BUSINESS DEPARTMENT CHAIR [facility] [address] [facility] [address] [place] [address] Rafael Casey MD [address] [place] [address] documented as of this encounter Visit Diagnoses Not on filedocumented in this encounter Additional Health Concerns Infection Onset Date Last Indicated Resolved Time Rule Out Respiratory 08/26/2024 08/26/2024 025 4:11 PM CDT documented as of this encounter Care Teams Solid Waste Truck Driver Relationship Specialty [place] [address] [facility] [address] [place] [address] PCP - General Family Medicine 08/26/24 documented as of this encounter
--- OUTSIDE RECORDS SUMMARY | 2025-03-24 20:39 | XMS_ITS | Encounter Summary ---
Author Organization [facility] Address [address] [place] [address] Care Team Providers Care Chief Information Security Officer Name Role Phone Easton Solis MD Unavailable [phone] Brittny Kong MD Primary Care Provider [phone] Encounter Details Date Type Department Care Team (Late st Contact Info) Description 03/21/2025 Telephone [facility] - [address], [address] [place] [phone] Brittny Kong MD [address] [place] [address] Social History Tobacco Use Types Packs/Day Years [...] encounter Miscellaneous Notes * Telephone Encounter - Irina Souza MA - 03/21/2025 4:45 PM CST Pt inst on Dr. Kong's message. She will reach out to Dr. Delacruz about her inhalers and thrush. I let her know the nystatin cream was called in. She reached out to cards about the PT/HH for the SOB/weakness and they told her to see her PCP patient is scheduled to see Dr. Kong in April for this per patient request to schedule after the first of the year. CONCIERGE * Telephone Encounter - Irina Souza MA - 03/21/2025 4:34 PM CST Tried calling patient back no answer LM CONCIERGE * Telephone Encounter - Irina Souza MA - 03/21/2025 2:19 PM CST Okay, I'll let her know, and the nystatin? CONCIERGE * Telephone Encounter - Irina Souza MA - 03/21/2025 11:16 AM CST Pt called to see if we can orders for home health for PT for strengthening. Also she is wanting to know if you can send her in some nystating mouth wash she get thrust from her inhaler and nystating cream because she gets rashes underneath the creases in her stomach area. CONCIERGE documented in this encounter Plan of Treatment Upcoming Encounters Date Type Department Care Team (Late st Contact Info) Description 04/25/2025 10:00 AM HEAD CONCIERGE Office Visit [facility] - [address], [address] [address] Brittny Kong MD [address] [place] [phone] 06/09/2025 2:15 PM [facility]CIER[facility] [address] [phone] [place] [address] [address], DR [address] [address] 06/16/2025 2:45 PM HEAD CONCIERGE Office Visit [facility] [address], [address] [place] [address] [place] [address] [address], [address] [address] 06/16/2025 3:30 PM HEAD CONCIERGE Office Visit [facility] - [address], [address] [place] [phone] [place] [address] [facility] [address] [place] [phone] documented as of this encounter Goals Goal [...] Total Score: 0 03/15/20 25 1:00 PM HEAD CONCIERGE documented as of this encounter Care Teams Chief Information Security Officer Relationship Specialty [place] [address] [facility] [address] [place] [address] PCP - General Family Medicine 09/23/22 Easton Solis MD [address] [place] [address] [place] [address] Staff/Attending Physician Pulmonary Disease 02/09/18 documented as of this encounter
--- OUTSIDE RECORDS SUMMARY | 2025-03-24 20:40 | XMS_ITS | Clinical Summary ---
Author Organization [facility] and Its Subsidiaries and Affiliates Address [address] [place] [address] Care Team Providers Care Tipping Machine Operator Name Role Phone Sarah Clifford MD Primary Care Provider [phone] Allergies No known active allergies Medications * This document contains information received from the source organization and may not represent a complete record from that organization. citalopram (CELEXA) 40 MG tablet Take by mouth. 1 Tablet Oral Every day Active hydrochlorothia zide (HYDRODIURIL) 25 MG tablet Take by mouth. 1 Tablet Oral QD Active lisinopril (PRINIVIL,ZESTR IL) 40 MG tablet Take by mouth. 1 Tablet Oral Every day Active pravastatin (PRAVACHOL) 20 MG tablet Take by mouth. 1 Tablet Oral Every day Active trazodone (DESYREL) 100 MG tablet Take by mouth. 1 Tablet Oral Every day Active fluticasone (FLONASE) 50 mcg/actuation nasal spray 1 spray by Each Nare route once daily. Active diclofenac sodium (VOLTAREN) 1 % Gel Apply 2 g topically once daily. Active aspirin (ECOTRIN) 81 MG EC tablet Take 81 mg by mouth once daily. Active esomeprazole (NEXIUM) 40 mg GrPS Take 40 mg by mouth before breakfast. 1200 mg 2 3 Active hydrocodone-arik taminophen (LORTAB) 7.5-500 mg/15 mL solution GIVE 30 ML BY MOUTH EVERY 6 HOURS NEEDED FOR PAIN 500 mL 0 3 Active omeprazole (PRILOSEC) 40 MG capsule Take 40 mg by mouth once daily. Active alendronate (FOSAMAX) 70 MG tablet Take 70 mg by mouth every 7 days. Active b complex vitamins capsule Take 1 capsule by mouth once daily. Active calcium carbonate (OS-JENNA) 600 mg calcium (1,500 mg) Tab Take 600 mg by mouth once. Active tiZANidine (ZANAFLEX) 4 MG tablet Take 4 mg by mouth every 6 (six) hours as needed. Active tiotropium (SPIRIVA) 18 mcg inhalation capsule Inhale 18 mcg into the lungs once daily. Controller Active potassium iodide (SSKI) 1 gram/mL solution Take by mouth 3 (three) times daily. Active potassium chloride (KLOR-CON) 10 MEQ TbSR Take 1 tablet (10 mEq total) by mouth once daily. 30 tablet 0 Active ondansetron (ZOFRAN) 4 MG tablet Take 1 tablet (4 mg total) by mouth every 6 (six) hours. 12 tablet 0 Active Active Problems Problem Noted Date Diagnosed Date Bradycardia 11/04/2013 Morbid obesity 08/14/2012 Hypertension Depression Hyperlipidemia PVD (peripheral vascular disease) Obesity Social History Tobacco Use Types Packs/Day Years Used Date Smoking Tobacco: Former Cigarettes 0 Q uit: 12/30/2000 Smokeless Tobacco: Never Alcohol Use Standard Drinks/Week Comments No 0 (1 standard drink = 0.6 oz pur e alcohol) Comments No Sex and Gender Information Value Date Recorded Sex Assigned at Not on file Legal Sex Female 2:53 AM DRY ICE MACHINE OPERATOR Gender Identity Not on file Sexual Orientation Not on file Last Filed Vital Signs Vital Sign Reading Time Taken Comments Blood Pressure 139/67 05/02/2022 12:14 AM DRY ICE MACHINE OPERATOR Pulse 77 05/02/2022 12:14 AM DRY ICE MACHINE OPERATOR Temperature 36.6 C (97.9 F) 05/01/2022 5:56 PM DRY ICE MACHINE OPERATOR Respiratory Rate 17 05/02/2022 12:14 AM DRY ICE MACHINE OPERATOR Oxygen Saturation 97% 05/02/2022 12:14 AM DRY ICE MACHINE OPERATOR Inhaled Oxygen Concentration - - Weight 89.8 kg (198 lb) 01/08/2020 11:14 AM CDT Height 171.5 cm (5' 7.5 ) 05/01/2022 5:56 PM DRY ICE MACHINE OPERATOR Body Mass Index 31.01 01/08/2020 11:14 AM CDT Plan of Treatment Health Maintenance Due Date Last Done Comments Hepatitis C Screening 1945 TETANUS VACCINE 1963 DEXA Scan 1985 Shingles Vaccine (2 of 2) 02/01/2020 12/07/2019 RSV Vaccine (Age 50+ and Pre gnant patients) (1 - 1-dose 75+ series) 2020 COVID-19 Vaccine (3 - 2024-2 6 season) 2024 07/20/2020, 06/22/2020 Influenza Vaccine (#1) 2024 , 01/30/2015, 03/24/2013 Lipid Panel 02/28/2027 02/28/2022, 02/19, 02/20/2021, Additional history exists Pneumococcal Vaccines (Age 50+) Completed 0, 08/13/2017 Medical Devices Implanted Type Area Enterprise Project Manager Device Identifier Shelf Expiration Date Model / Serial / Lot Kit Fibrin Sealant Surg 5.0ml - [id number] Implanted:Qty: 1 on 08/14/2012 by Keith Hunter MD at [facility] N/A: Abdomen [employer] 03/20/2014 [id number] / / [id number] Procedures Procedure Name Priority Date/Time Associated Diagnosis Comments LIPID PANEL Routine 11/13/2011 9:34 AM CDT from Last 3 Months or Most Recently Relevant to Health Maintenance Results * (ABNORMAL) Lipid panel (11/13/2011 9:34 AM CDT) Cholesterol 167 120 - 199 mg/dL LALI REECE Comment: The National Cholesterol Education Program (NCEP) has set the following guidelines (reference ranges) for Cholesterol: Optimal.....................<200 mg/dL Borderline High.............200-239 mg/dL High........................> or = 240 mg/dL Triglycerides 181(H) 30 - 150 mg/dL LALI REECE Comment: The National Cholesterol Education Program (NCEP) has set the following guidelines (reference values) for triglycerides: Normal......................<150 mg/dL Borderline High.............150-199 mg/dL High........................200-499 mg/dL Very High...................> or = 500 mg/dL HDL 38(L) 40 - 75 mg/dL LALI LIS Comment: The National Cholesterol Education Program (NCEP) has set the following guidelines (reference values) for HDL Cholesterol: Low...............<40 Optimal...........>60 LDL Cholesterol 93.0 63 - 159 mg/dL LALI LIS Comment: The National Cholesterol Education Program (NCEP) has set the following guidelines (reference values) for LDL Cholesterol: Optimal.......................<130 mg/dL Borderline High...............130-159 mg/dL High..........................160-189 mg/dL Very High.....................>190 mg/dL HDL/Cholesterol Ratio 22.8 20 - 50 % LALI LIS Total Cholesterol/HDL Ratio 4.4 2 - 5 LALI LIS 11/13/2011 9:34 AM CDT Rosette Yap PA-C LAB BLOOD ORDERABLES Final Result LALI LIS N/A from Last 3 Months or Most Recently Relevant to Health Maintenance Insurance [employer] MEDICARE HMO MEDICAID [facility] Care Teams Tipping Machine Operator Relationship Specialty [place] [address] [facility] [address] [place] [address] PCP - General Family Medicine 01/08/20
--- OUTSIDE RECORDS SUMMARY | 2025-03-24 20:40 | XMS_ITS | Encounter Summary ---
Author Organization [facility] and Its Subsidiaries and Affiliates Address [address] [address] [place] [address] Care Team Providers Care Adult Nurse Practitioner Name Role Phone Brittny Kong MD Primary Care Provider [phone] Reason for Referral * MRI/CAT Scan (Routine) - Closed Specialty Diagnoses / Procedures Referred By Gabriel frey Referred To Contact Radiology Diagnoses Vertebral syndrome Procedures MRI Lumbar Spine without Contrast Hugo Pulliam MD Phone: tel: fax: Referral ID Status Reason Start Date Expiration Date Visits Re quested Visits Authorized [id number] Closed 09/18/2016 10/18/2016 1 1 Encounter Details Date Type Department Care Team (Latest Contact Info) Description 09/19/2016 Transcribe Orders [facility] [address] [place] [phone] Hugo Pulliam MD [address] [place] [phone] Vertebral syndrome (Primary Dx) Social History Tobacco Use Types Packs/Day Years Used Date Smoking Tobacco: Never Assessed Comments Unknown Sex and Gender Information Value Date Recorded Sex Assigned at Not on file Legal Sex Female 10:03 PM CDT Gender Identity Not on file Sexual Orientation Not on file documented as of this encounter Plan of Treatment Upcoming Encounters Date Type Department Care Team (Late st Contact Info) Description 04/29/2025 2:15 PM TEA PLANTATION WORKER Office Visit [facility] [address] [facility] [address] [place] [address] Rafael Casey MD [address] [facility] [address] [place] [phone] documented as of this encounter Results * MRI Lumbar Spine without Contrast (09/27/2016 2:51 PM CDT) Anatomical Region Laterality Modality Magnetic Resonan ce Impressions 09/27/2016 3:07 PM CDT Multilevel degenerative changes most significant at L3-4 and L4-5. There is moderate central canal stenosis at L3-4. There is moderate to severe right L3-4 foraminal stenosis and severe left L4-5 foraminal stenosis due to disc bulges and facet hypertrophic changes. There is contact of the exiting nerve roots at both of these levels. Narrative 09/27/2016 3:07 PM CDT EXAM: MRI LUMBAR SPINE WO CONTRAST, 09/27/2016 2:11 PM COMPARISON: None HISTORY: Vertebral syndrome [M54.16 (ICD-10-CM TECHNIQUE: Multiplanar, multisequence MR imaging was obtained of the lumbar spine without IV contrast. FINDINGS: Degenerative endplate changes in the marrow at T11-12 and L3-4. There straightening of normal lumbar lordosis. Vertebral body heights are maintained. Conus terminates normally at L1-2. Lumbar nerve roots have a normal appearance. L1-2: Mild diffuse disc bulge and facet hypertrophic changes without significant canal or foraminal stenosis. L2-3: Diffuse disc bulge and facet hypertrophic changes contributing to mild central canal and mild to moderate bilateral foraminal stenosis L3-4: Loss of disc height and diffuse disc bulge with facet hypertrophic changes contributing to moderate central canal and bilateral foraminal stenosis, moderate to severe on the right with contact of the exiting L3 nerve root. L4-5: Asymmetric leftward disc bulge and facet hypertrophic changes contributing to pjxx-ii-hxrokbwi central canal stenosis and severe left and mild right foraminal stenosis. There is contact of the exiting left L4 nerve root. L5-S1: Mild diffuse disc bulge and facet hypertrophic changes without significant central canal stenosis. Mild left foraminal stenosis. Bilateral Tarlov cysts. Procedure Note Betty May MD - 09/27/2016 EXAM: MRI LUMBAR SPINE WO CONTRAST, 09/27/2016 2:11 PM COMPARISON: None HISTORY: Vertebral syndrome [M54.16 (ICD-10-CM TECHNIQUE: Multiplanar, multisequence MR imaging was obtained of thelumbar spine without IV contrast. FINDINGS: Degenerative endplate changes in the marrow at T11-12 and L3-4. Therestraightening of normal lumbar lordosis. Vertebral body heights aremaintained. Conus terminates normally at L1-2. Lumbar nerve roots have anormal appearance. L1-2: Mild diffuse disc bulge and facet hypertrophic changes withoutsignificant canal or foraminal stenosis. L2-3: Diffuse disc bulge and facet hypertrophic changes contributing tomild central canal and mild to moderate bilateral foraminal stenosis L3-4: Loss of disc height and diffuse disc bulge with facet hypertrophicchanges contributing to moderate central canal and bilateral foraminalstenosis, moderate to severe on the right with contact of the exiting D3bwekg root. L4-5: Asymmetric leftward disc bulge and facet hypertrophic changescontributing to hyuk-gg-oobcbpiz central canal stenosis and severe leftand mild right foraminal stenosis. There is contact of the exiting left D3titjl root. L5-S1: Mild diffuse disc bulge and facet hypertrophic changes withoutsignificant central canal stenosis. Mild left foraminal stenosis. Bilateral Tarlov cysts. IMPRESSION: Multilevel degenerative changes most significant at L3-4 and L4-5. Thereis moderate central canal stenosis at L3-4. There is moderate to severeright L3-4 foraminal stenosis and severe left L4-5 foraminal stenosis dueto disc bulges and facet hypertrophic changes. There is contact of theexiting nerve roots at both of these levels. [facility] [place] [facility] MRI ORDERABLES Final Result documented in this encounter Visit Diagnoses Diagnosis Vertebral syndrome- Primary Thoracic or lumbosacral neuritis or radiculitis, unspecified Vertebral syndrome Thoracic or lumbosacral neuritis or radiculitis, unspecified documented in this encounter Additional Health Concerns Infection Onset Date Last Indicated Resolved Time COVID-19 Confirmed 03/04/2023 03/04/2023 3 10:37 PM TEA PLANTATION WORKER Rule Out Respiratory 03/02/2024 03/02/2024 024 11:48 AM TEA PLANTATION WORKER Rule Out Respiratory 08/26/2024 08/26/2024 025 4:11 PM CDT documented as of this encounter Care Teams Adult Nurse Practitioner Relationship Specialty [place] [address] [facility] [address] [place] [address] PCP - General Family Medicine 08/26/24 documented as of this encounter
--- OUTSIDE RECORDS SUMMARY | 2025-03-24 20:40 | XMS_ITS | Encounter Summary ---
Author Organization Nicole Caballomarie mancera of [facility] and Its Subsidiaries and Affiliates Address [address] [address] [place] [address] Care Team Providers Care Embossing Machine Tender Name Role Phone Brittny Kong MD Primary Care Provider [phone] Encounter Details Date Type Department Care Team (Late st Contact Info) Description 03/10/2025 Telephone [facility] [address] [place] [address] Rafael Casey MD [address] [facility] [place] [address] [place] [id number] Social History Tobacco Use Types Packs/Day Years Used Date Smoking Tobacco: Former Cigarettes 1 40 1 961 - 2001 Smokeless Tobacco: Never Alcohol Use Standard Drinks/Week Comments Not Currently 0 (1 standard drink = 0.6 oz pur e alcohol) [facility] Utilities Answer Date Recorded In the past 12 months has e electric, gas, oil, or water company threatened to [...] often do you attend chur ch or jew services? Never 04/16/2023 Do you belong to any clubs o r organizations such as latter-day groups, unions, fraternal or athletic groups, or [...] and heating? Not hard at all 04/16/2023 [facility] [place] [facility] - Occupational Stress [...] place to sleep or slept in a residential (including now)? No 04/16/2023 Comments No Sex and Gender Information Value Date Recorded Sex Assigned at Not on file Legal Sex Female 10:03 PM CDT Gender Identity Not on file Sexual Orientation Not on file documented as of this encounter Miscellaneous Notes * Telephone Encounter - Aleja BlackDOTTIE - 03/10/2025 3:28 PM CST Patient informed monitor showed one episode of low heart rate and other rates were within normal range throughout majority of monitoring period. No changes recommended at this time based on monitor results. Patient verbalized understanding. Patient stated she still get SOB but no chest pain/palpitations, or dizziness; otherwise, no symptoms. ----- Message from SUSHIL Powell sent at 03/10/2025 1:10 PM DENTAL COORDINATOR ----- Regarding: RE: Test results Monitor was ordered for further evaluation of bradycardia. Please let patient know that she only had one episode of low heart rate. Rates were within normal range throughout majority of monitoring period. No changes recommended at this time based on monitor results. Please ask her about any recent cardiac symptoms (lightheadedness/dizziness, palpitations, etc). SUSHIL Powell ----- Message ----- From: Vasquez Carlin MA Sent: 03/09/2025 1:22 PM DENTAL COORDINATOR To: SUSHIL Powell Subject: FW: Test results ----- Message ----- From: Iron Rutledge Sent: 03/09/2025 1:18 PM DENTAL COORDINATOR To: Carmela Hall (Ololpg) Nurse/Dottie Subject: Test results Pt would like to know if her holter results are available. Pls call her with the results @[phone] AL COORDINATOR AL COORDINATOR documented in this encounter Plan of Treatment Upcoming Encounters Date Type Department Care Team (Late st Contact Info) Description 04/29/2025 2:15 PM DENTAL COORDINATOR Office Visit [facility] [address] [place] [phone] Rafael Casey MD [address] [facility] [address] [place], [place] [id number] documented as of this encounter Visit Diagnoses Not on filedocumented in this encounter Care Teams Embossing Machine Tender Relationship Specialty [place] [address] [facility] [address] [place] [address] PCP - General Family Medicine 08/26/24 documented as of this encounter
--- OUTSIDE RECORDS SUMMARY | 2025-03-24 20:40 | XMS_ITS | Encounter Summary ---
Author Organization Nicole bensons of [facility] and Its Subsidiaries and Affiliates Address [address] [address] [place] [address] Care Team Providers Care Oyster Harvester Name Role Phone Brittny Kong MD Primary Care Provider [phone] Encounter Details Date Type Department Care Team (Late st Contact Info) Description 04/18/2023 Procedure Pass [facility] - [facility]OSCOPY [facility] [address] [place] [address] Social History Tobacco Use Types Packs/Day Years Used Date Smoking Tobacco: Former Cigarettes 1 40 1 961 - 2001 Smokeless Tobacco: Never Alcohol Use Standard Drinks/Week Comments Not Currently 0 (1 standard drink = 0.6 oz pur e alcohol) [facility] Utilities Answer Date Recorded In the past 12 months has [facility] [employer], gas, oil, or water [employer] threatened to shut off services in your [...] 04/16/2023 How often do you attend chur or amish services? Never 04/16/2023 Do you belong to any clubs o r organizations such as denominational groups, unions, fraternal or athletic groups, or [...] and heating? Not hard at all 04/16/2023 [facility] - Occupational Stress Questionnaire Answer Date Recorded [...] place to sleep or slept in a care home (including now)? No 04/16/2023 Comments No Sex and Gender Information Value Date Recorded Sex Assigned at Not on file Legal Sex Female 10:03 PM CDT Gender Identity Not on file Sexual Orientation Not on file documented as of this encounter Plan of Treatment Upcoming Encounters Date Type Department Care Team (Late st Contact Info) Description 04/29/2025 2:15 PM GENERAL SUPERVISOR Office Visit [facility] [address] [facility] [address] [place] [id number] Rafael Casey MD [address] [facility] [address] [place], [place] [address] documented as of this encounter Visit Diagnoses Not on filedocumented in this encounter Additional Health Concerns Infection Onset Date Last Indicated Resolved Time Rule Out Respiratory 03/02/2024 03/02/2024 024 11:48 AM GENERAL SUPERVISOR Rule Out Respiratory 08/26/2024 08/26/2024 025 4:11 PM CDT documented as of this encounter Care Teams Oyster Harvester Relationship Specialty [place] [address] [facility] [address] [place] [address] PCP - General Family Medicine 08/26/24 documented as of this encounter
--- OUTSIDE RECORDS SUMMARY | 2025-03-24 20:40 | XMS_ITS | Continuity of Care Document ---
Author Organization Nicole mancera of [facility] and Its Subsidiaries and Affiliates Address [address] [address] [place] [address] Care Team Providers Care [employer] Repairer Name Role Phone Brittny Kong MD Primary Care Provider [phone] Encounters Date Type Department Care Team Description 03/10/2025 Telephone [facility] [address] [place] [phone] Dhaval Casey MD 02/25/2025 11:50 AM ASSISTANT REAL ESTATE MANAGER Ancillary Procedure [facility] [address] [place] [address] Dhaval Casey MD 02/25/2025 History [facility] [address] [place] [address] Dhaval Casey MD 02/25/2025 11:15 AM ASSISTANT REAL ESTATE MANAGER Office Visit [facility] [address] [place] [address] Dhaval Casey MD Shortness of breath (Primary Dx); Acute diastolic CHF (congestive heart failure) (HCC); Essential hypertension 02/18/2025 Telephone [facility] Cardiology [facility] [address] [place] [phone] Dhaval Casey MD Results 02/16/2025 Telephone [facility] [address] [place] [address] Dhaval Casey MD 02/11/2025 9:23 AM CDT - 02/11/2025 11:59 PM CDT Hospital Encounter [facility] [address] [place] [address] Dhaval Casey MD Chronic diastolic congestive heart failure (HCC); Sinus bradycardia; Dyspnea on exertion Discharge Disposition: Home or Self Care 01/14/2025 Procedure Pass [facility] [address] [place] [address] 01/14/2025 4:05 PM CDT Ancillary Procedure [facility] [address] [facility] [place] [address] Dhaval Casey MD 01/14/2025 History [facility] [address] [place] [address] Dhaval Casey MD 01/14/2025 3:15 PM CDT Office Visit [facility] [address] [facility] [place] [address] Dhaval Casey MD Essential hypertension (Primary Dx); Chronic diastolic congestive heart failure (HCC); Sinus bradycardia; Dyspnea on exertion 12/30/2024 Telephone [facility] [address] [place] [address] Eden Méndez LPN Advice Only 11/24/2024 History [facility] [address] [place] [address] Leslye Castorena FNP 11/24/2024 11:15 AM CDT Office Visit [facility] [address] [place] [address] [facility] Chronic pain disorder (Primary Dx); Other spondylosis, lumbar region; Lumbar radiculopathy; Sacroiliitis 08/26/2024 Procedure Pass [facility] [address] [place] [address] 08/26/2024 Travel 08/26/2024 3:17 PM CDT - 08/26/2024 7:12 PM CDT Emergency [facility] - Emergency Department [address] [place] [address] Seven Mondragon MD SOB (shortness of breath) (Primary Dx); COPD exacerbation (HCC); Acute cough Discharge Disposition: Home or Self Care 08/24/2024 History [facility] Pain Management [address] [place] [address] Alessandra Castorenaanup [facility] 08/24/2024 11:15 AM CDT Office Visit [facility] Pain Management [address] [place] [address] Rogue RiverAlessandraLeslye, FNP Chronic pain disorder (Primary Dx); Other spondylosis, lumbar region; Lumbar radiculopathy; Sacroiliitis 06/24/2024 11:00 AM ASSISTANT REAL ESTATE MANAGER Office Visit [facility] Pain Management [address] [place] [address] Christine Erwin PA Chronic pain disorder (Primary Dx); Other spondylosis, lumbar region; Lumbar radiculopathy; Sacroiliitis 03/02/2024 Procedure Pass [facility] [address] [place] [address] 03/02/2024 Procedure Pass [facility] [address] [place] [address] 03/02/2024 History [facility] - Emergency Department [address] [place] [address] Rena Aguilar RN 03/02/2024 Travel 03/02/2024 11:14 AM ASSISTANT REAL ESTATE MANAGER - 03/02/2024 1:05 PM ASSISTANT REAL ESTATE MANAGER Emergency [facility] - Emergency Department [address] [place] [address] Acute cough (Primary Dx); Exposure to the flu; Ground-level fall; Right hip pain Discharge Disposition: Home or Self Care 01/09/2024 History [facility] [address] [place] [address] Dhaval Casey MD 01/09/2024 1:15 PM CDT Office Visit [facility] [address] [place] [address] Dhaval Casey MD Essential hypertension (Primary Dx); Chronic diastolic congestive heart failure (HCC); Sinus bradycardia; Dyspnea on exertion 06/27/2023 History [facility] [address] [place] [address] Dhaval Casey MD 06/27/2023 3:30 PM ASSISTANT REAL ESTATE MANAGER Office Visit [facility] [address] [place] [address] Dhaval Casey MD Essential hypertension (Primary Dx); Chronic diastolic congestive heart failure (HCC) 06/26/2023 Auto-Released Order [facility] Cardiology [facility] [address] [place] [address] Chiqui Miller PA Essential hypertension 06/02/2023 Telephone [facility] Cardiology [facility] [address] [place] [address] Carri Villalobos MA Advice Only 05/16/2023 History [facility] [address] [place] [address] Dhaval Casey MD 05/16/2023 1:45 PM ASSISTANT REAL ESTATE MANAGER Office Visit [facility] [address] [facility] [address] [place] [address] Dhaval Casey MD Acute diastolic CHF (congestive heart failure) (HCC) (Primary Dx); Essential hypertension; Sinus bradycardia; Dyspnea on exertion 04/24/2023 Telephone [facility] Thoracic Surgery [address] [place] [address] [place] [address] [place] [address] Nohemy Moses, 04/24/2023 History [facility] Cardiology [facility] [address] [facility] [address] [place] [address] 04/24/2023 2:30 PM ASSISTANT REAL ESTATE MANAGER Office Visit [facility] Cardiology [facility] [address] [facility] [address] [place] [address] Chiqui Miller PA Essential hypertension (Primary Dx); Chronic diastolic congestive heart failure (HCC); Mixed hyperlipidemia; Class 1 obesity due to excess calories with serious comorbidity and body mass index (BMI) of 31.0 to 31.9 in adult; Stage 3 chronic kidney disease, unspecified whether stage 3a or 3b CKD (HCC) 04/23/2023 Telephone [facility] Cardiology [facility] [address] [facility] [address] [place] [address] Laura Hernandez RN 04/18/2023 Procedure Pass [facility] [address] [place] [address] 04/18/2023 History [facility] - SAME DAY SURGERY [address] [place] [address] Nohemy Moses, 04/18/2023 Travel 04/18/2023 6:48 AM ASSISTANT REAL ESTATE MANAGER - 04/18/2023 11:59 PM ASSISTANT REAL ESTATE MANAGER Hospital Encounter [facility] [place] [address] Corinna Nicolas NP Right upper lobe pulmonary nodule Discharge Disposition: Home or Self Care 04/18/2023 Procedure Pass [facility] - ENDOSCOPY GI LAB [address] [place] [address] 04/18/2023 10:30 AM ASSISTANT REAL ESTATE MANAGER - 04/18/2023 12:30 PM ASSISTANT REAL ESTATE MANAGER Surgery [facility] - ENDOSCOPY GI LAB [address] [place] [address] Nohemy Moses DO ROBOT ASSISTED BRONCHOSCOPY [[id number] (CPT )] 04/18/2023 11:25 AM ASSISTANT REAL ESTATE MANAGER Anesthesia Event [facility] - ENDOSCOPY GI LAB [address] [place] [address] Angella Jimenez MD Kendrick Guerra, Brittany, NP 03/24/2023 Procedure Pass [facility] [address] [place] [address] 04/18/2023 6:41 AM ASSISTANT REAL ESTATE MANAGER - 04/18/2023 3:28 PM ASSISTANT REAL ESTATE MANAGER Hospital Encounter [facility] - SAME DAY SURGERY [address] [place] [address] Nohemy Moses DO Lung nodules (Primary Dx) Discharge Disposition: Home or Self Care 04/16/2023 Travel 04/16/2023 History [facility] - SAME DAY SURGERY [address] [place] [address] Nohemy Moses DO 04/09/2023 History [facility] - SAME DAY SURGERY [address] [place] [address] Nohemy Moses DO 03/24/2023 History [facility] Thoracic Surgery [address] [facility] [address] [facility] [place] [address] Corinna Nicolas NP 03/24/2023 10:30 AM ASSISTANT REAL ESTATE MANAGER Initial consult [facility] Thoracic Surgery [address] [facility] [address] [place] [address] Corinna Nicolas NP Right upper lobe pulmonary nodule (Primary Dx); Dyspnea on exertion; Hoarseness 03/17/2023 Documentation [place] [facility] [address] [address] [place] [address] Jade Deluna NP 03/12/2023 1:00 PM ASSISTANT REAL ESTATE MANAGER Detention Visit [place] [facility] [address] [facility] [place] [address] Jade Deluna, EMILEE COVID-19 (Primary Dx); Lung nodule; Drug-induced constipation; Mixed hyperlipidemia; Primary osteoarthritis of left knee; Overactive bladder; Stage 3 chronic kidney disease, unspecified whether stage 3a or 3b CKD (HCC); Major depression, chronic; Chronic diastolic congestive heart failure (HCC); Gastroesophageal reflux disease without esophagitis; Essential hypertension; Hoarseness; Chronic bilateral low back pain with bilateral sciatica 03/11/2023 1:00 PM ASSISTANT REAL ESTATE MANAGER Detention Visit [place] [address] [place] [address] Jade Deluna, EMILEE COVID-19 (Primary Dx); Drug-induced constipation; Mixed hyperlipidemia; Primary osteoarthritis of left knee; Overactive bladder; Gastroesophageal reflux disease without esophagitis; Chronic diastolic congestive heart failure (HCC); Major depression, chronic; Stage 3 chronic kidney disease, unspecified whether stage 3a or 3b CKD (HCC); Hoarseness; Essential hypertension; Dyslipidemia 03/10/2023 1:00 PM ASSISTANT REAL ESTATE MANAGER Detention Visit [place] [facility] [address] [facility] [address] [place] [address] Jade Deluna, EMILEE COVID-19 (Primary Dx); Drug-induced constipation; Primary osteoarthritis of left knee; Gastroesophageal reflux disease without esophagitis; Major depression, chronic; Adjustment insomnia; Mixed hyperlipidemia; Overactive bladder; Chronic diastolic congestive heart failure (HCC); Stage 3 chronic kidney disease, unspecified whether stage 3a or 3b CKD (HCC); Dyslipidemia; Essential hypertension; Hoarseness; Chronic bilateral low back pain with bilateral sciatica; Recurrent UTI 03/07/2023 1:00 PM ASSISTANT REAL ESTATE MANAGER Detention Visit [place] [facility] [address] [facility] [address] [place] [address] Jade Deluna, EMILEE COVID-19 (Primary Dx); Drug-induced constipation; Primary osteoarthritis of left knee; Gastroesophageal reflux disease without esophagitis; Major depression, chronic; Stage 3 chronic kidney disease, unspecified whether stage 3a or 3b CKD (HCC); Chronic diastolic congestive heart failure (HCC); Overactive bladder; Mixed hyperlipidemia; Adjustment insomnia; Dyslipidemia; Essential hypertension; Hoarseness; Chronic bilateral low back pain with bilateral sciatica; Recurrent UTI; Age-related osteoporosis without current pathological fracture 03/07/2023 Telephone [facility] Thoracic Surgery [address] [place] [address] [address] [place] [address] Corinna Nicolas NP 03/06/2023 1:00 PM ASSISTANT REAL ESTATE MANAGER Detention Visit [place] [address] [address] Jade Deluna NP COVID-19 (Primary Dx); Drug-induced constipation; Primary osteoarthritis of left knee; Gastroesophageal reflux disease without esophagitis; Major depression, chronic; Stage 3 chronic kidney disease, unspecified whether stage 3a or 3b CKD (HCC); Chronic diastolic congestive heart failure (HCC); Overactive bladder; Mixed hyperlipidemia 03/05/2023 1:00 PM ASSISTANT REAL ESTATE MANAGER Detention Visit [place] [address] [facility] [address] [place] [address] Jade Deluna NP COVID-19 (Primary Dx); Drug-induced constipation; Primary osteoarthritis of left knee; Gastroesophageal reflux disease without esophagitis; Adjustment insomnia; Chronic diastolic congestive heart failure (HCC); Stage 3 chronic kidney disease, unspecified whether stage 3a or 3b CKD (HCC); Major depression, chronic; Dyslipidemia; Essential hypertension; Overactive bladder; Mixed hyperlipidemia; Hoarseness 03/04/2023 1:00 PM ASSISTANT REAL ESTATE MANAGER Detention Visit [place] [address] [place] [address] Jade Deluna, EMILEE COVID-19 (Primary Dx); Drug-induced constipation; Primary osteoarthritis of left knee; Gastroesophageal reflux disease without esophagitis; Adjustment insomnia; Chronic diastolic congestive heart failure (HCC); Stage 3 chronic kidney disease, unspecified whether stage 3a or 3b CKD (HCC); Major depression, chronic; Dyslipidemia; Chronic bilateral low back pain with bilateral sciatica; Essential hypertension; Overactive bladder; Mixed hyperlipidemia 03/03/2023 1:00 PM [facility] Detention Visit [place] [address] [facility] [place] [address] Thanh Pino DO Drug-induced constipation (Primary Dx); Gastroesophageal reflux disease without esophagitis; Adjustment insomnia; Chronic diastolic congestive heart failure (HCC); Stage 3 chronic kidney disease, unspecified whether stage 3a or 3b CKD (HCC); Essential hypertension; Chronic bilateral low back pain with bilateral sciatica; Dyslipidemia; Hoarseness; Major depression, chronic; Primary osteoarthritis of left knee; Overactive bladder; Recurrent UTI; Mixed hyperlipidemia 02/28/2023 1:00 PM [facility] Detention Visit [place] [address] [place] [address] Jade Deluna, EMILEE Gastroesophageal reflux disease without esophagitis (Primary Dx); Adjustment insomnia; Chronic diastolic congestive heart failure (HCC); Age-related osteoporosis without current pathological fracture; Stage 3 chronic kidney disease, unspecified whether stage 3a or 3b CKD (HCC); Chronic bilateral low back pain with bilateral sciatica; Drug-induced constipation; Essential hypertension; Dyslipidemia; Hoarseness; Major depression, chronic; Primary osteoarthritis of left knee; Overactive bladder; Recurrent UTI; Mixed hyperlipidemia 02/27/2023 1:00 PM [facility] Detention [place] [address] [place] [address] Jade Deluna, EMILEE Chronic diastolic congestive heart failure (HCC) (Primary Dx); Age-related osteoporosis without current pathological fracture; Stage 3 chronic kidney disease, unspecified whether stage 3a or 3b CKD (HCC); Chronic bilateral low back pain with bilateral sciatica; Drug-induced constipation; Essential hypertension; Dyslipidemia; Hoarseness; Major depression, chronic; Primary osteoarthritis of left knee; Overactive bladder; Recurrent UTI 02/26/2023 Tumor Board Conference [facility] Thoracic Surgery [address] [facility] Medical [place] [address] [place] [address] Corinna Nicolas NP 02/26/2023 9:00 AM ASSISTANT REAL ESTATE MANAGER Detention Visit [place] [address] [place] [address] Micah Fall NP Drug-induced constipation (Primary Dx); Chronic diastolic congestive heart failure (HCC); Age-related osteoporosis without current pathological fracture; Stage 3 chronic kidney disease, unspecified whether stage 3a or 3b CKD (HCC); Chronic bilateral low back pain with bilateral sciatica; Essential hypertension 02/25/2023 History [place] [address] [place] [address] Thanh Pino DO 02/25/2023 7:00 AM ASSISTANT REAL ESTATE MANAGER Detention Visit [place] [address] [place] [address] Thanh Pino DO Age-related osteoporosis without current pathological fracture (Primary Dx); Chronic diastolic congestive heart failure (HCC); Chronic bilateral low back pain with bilateral sciatica; Stage 3 chronic kidney disease, unspecified whether stage 3a or 3b CKD (HCC); Drug-induced constipation; Dyslipidemia; Essential hypertension; Hoarseness; Mixed hyperlipidemia; Major depression, chronic; Primary osteoarthritis of left knee; Overactive bladder; Recurrent UTI 02/16/2023 5:00 PM CDT - 02/24/2023 3:22 PM ASSISTANT REAL ESTATE MANAGER Hospital Encounter [facility] - NEPHROLOGY [address] [facility] [place] [address] Bridget Khan MD Dixon, Debbie, MD Diaz, Richie Rose, MD Mendler, Thomas, MD Constipation, unspecified constipation type (Primary Dx); Pneumonia of left lower lobe due to infectious organism; Drug-induced constipation; Generalized weakness Discharge Disposition: [facility] Facility 02/18/2023 Procedure Pass [facility] [address] [place] [address] 02/16/2023 History [facility] - Emergency Department [address] [place] [address] Fidencio Bernal MD 02/16/2023 Procedure Pass [facility] [address] [place] [address] 02/16/2023 Procedure Pass [facility] [address] [place] [address] 01/21/2023 History [facility] [address] [place] [address] Dhaval Casey MD 01/21/2023 1:15 PM CDT Office Visit [facility] [address] [place] [address] Dhaval Casey MD Acute diastolic CHF (congestive heart failure) (HCC) (Primary Dx); Essential hypertension; Mixed hyperlipidemia; Preop cardiovascular exam 07/12/2022 History [facility] [address] [place] [address] Dhaval Casey MD 07/12/2022 1:15 PM CDT Office Visit [facility] [address] [place] [address] Dhaval Casey MD Essential hypertension (Primary Dx); Acute diastolic CHF (congestive heart failure) (HCC); Sinus bradycardia; Dyspnea on exertion; Mixed hyperlipidemia 10/29/2021 Telephone [facility] [address] [place] [address] Laura Hernandez RN 10/23/2021 1:15 PM CDT Ancillary Procedure [facility] [address] [place] [address] Dhaval Casey MD 10/23/2021 11:09 AM CDT - 10/23/2021 11:59 PM CDT Hospital Encounter [facility] [address] [place], [place] [address] Dhaval Casey MD Essential hypertension; Dyspnea on exertion; Peripheral vascular angioplasty status with implants and grafts; Acute diastolic congestive heart failure (HCC) Discharge Disposition: Home or Self Care 09/28/2021 Procedure Pass [facility] [address] [place] [address] 10/08/2021 History [facility] [address] [place] [address] Dhaval Casey MD 10/02/2021 Telephone [facility] [address] [place] [address] Laura Hernandez RN 09/28/2021 History [facility] [address] [place] [address] Dhaval Casey MD 09/28/2021 2:00 PM CDT Office Visit [facility] [address] [place] [address] Dhaval Casey MD Essential hypertension (Primary Dx); Dyspnea on exertion; Peripheral vascular angioplasty status with implants and grafts 04/25/2021 12:37 PM ASSISTANT REAL ESTATE MANAGER - 04/25/2021 11:59 PM ASSISTANT REAL ESTATE MANAGER Hospital Encounter [facility] BREAST IMAGING [address] [place] [address] Sarah Clifford MD Visit for screening mammogram Discharge Disposition: Home or Self Care 02/27/2021 Procedure Pass [facility] BREAST IMAGING [address] [place] [address] 02/27/2021 Transcribe Orders [facility] [address] [place], [place] [address] Sarah Clifford MD Visit for screening mammogram 11/20/2020 8:30 AM CDT - 11/20/2020 11:59 PM CDT Hospital Encounter [facility] [address] [facility] [place] [address] Blake Kwan MD Stage 3a chronic kidney disease (HCC) Discharge Disposition: Home or Self Care 10/24/2020 Procedure Pass [facility] [address] [place] [address] 10/24/2020 Transcribe Orders [facility] [address] [place], [place] [address] Blake Kwan MD Stage 3a chronic kidney disease (HCC) (Primary Dx) 08/10/2020 Telephone [facility] [address] [place] [address] Evie Campoverde RCS 06/16/2020 History [facility] [address] [place] [address] Dhaval Casey MD 06/16/2020 1:30 PM ASSISTANT REAL ESTATE MANAGER Office Visit [facility] [address] [place] [address] Dhaval Casey MD Essential hypertension (Primary Dx); Acute diastolic CHF (congestive heart failure) (HCC); Dyslipidemia 02/18/2020 11:50 AM CDT Ancillary Procedure [facility] [address] [place] [address] Dhaval Casey MD 02/18/2020 History [facility] [address] [place] [address] Dhaval Casey MD 02/18/2020 11:30 AM CDT Office Visit [facility] [address] [place] [address] Dhaval Casey MD Essential hypertension (Primary Dx); Dyslipidemia; Acute diastolic CHF (congestive heart failure) (HCC) 02/10/2020 11:29 AM CDT - 02/10/2020 11:59 PM CDT Hospital Encounter [facility] BREAST IMAGING [address] [facility] [place] [address] Venessa Barcenas, EMILEE Screening mammogram, encounter for Discharge Disposition: Home or Self Care 01/27/2020 Procedure Pass [facility] BREAST IMAGING [address] [place] [address] 02/02/2020 History [facility] Cardiology [facility] [address] [facility] [address] [place] [address] Dahval Casey MD 02/02/2020 Travel 02/02/2020 10:30 AM CDT Office Visit [facility] Cardiology [facility] [address] [place] [address] Dhaval Casey MD Essential hypertension (Primary Dx); Dyspnea on exertion; Dyslipidemia 01/27/2020 Transcribe Orders [facility] [address] [place] [address] Venessa Barcenas, EMILEE Screening mammogram, encounter for (Primary Dx) 01/14/2020 History [facility] [address] [place] [address] Dhaval Casey MD 01/14/2020 11:00 AM CDT Office Visit [facility] [address] [place] [address] Dhaval Casey MD Essential hypertension (Primary Dx); Sinus bradycardia; Dyslipidemia 01/05/2019 Procedure Pass [facility] [address] [place] [address] 01/05/2019 History [facility] - Emergency Department [place] [phone] Brandon Srivastava RN 01/05/2019 Procedure Pass [facility] [place] [address] 01/05/2019 Procedure Pass [facility] [place], [place] [address] 01/05/2019 Travel 01/05/2019 2:38 PM CDT - 01/05/2019 10:08 PM CDT Emergency [facility] - Emergency Department [place], [place] [address] Manda Jacobson MD Generalized weakness (Primary Dx); Left-sided weakness Discharge Disposition: Home or Self Care 12/31/2018 Procedure Pass [facility] [place], [place] [address] 12/31/2018 Procedure Pass [facility] [place], [place] [address] 12/31/2018 Travel 12/31/2018 History [facility] - Emergency Department [place], [place] [address] Abner Gibbs RN 12/31/2018 4:53 PM CDT - 12/31/2018 8:43 PM CDT Emergency [facility] - Emergency Department [place] [phone] Vick Renner MD Urinary tract infection without hematuria, site unspecified (Primary Dx); Accident due to mechanical fall without injury, initial encounter; Generalized weakness Discharge Disposition: Home or Self Care 12/14/2018 10:06 AM CDT - 12/14/2018 11:59 PM CDT Hospital Encounter [facility] [address] [place] [address] Sarah Clifford MD Menopause Discharge Disposition: Home or Self Care 12/14/2018 10:00 AM CDT - 12/14/2018 10:05 AM CDT Hospital Encounter [facility] BREAST IMAGING [address] [place] [address] Sarah Clifford MD Breast screening Discharge Disposition: Home or Self Care 09/21/2018 Procedure Pass [facility] [address] [place], [place] [address] 09/21/2018 Procedure Pass [facility] BREAST IMAGING [address] [place], [place] [address] 11/06/2018 Telephone [facility] [address] [place] [address] Laura Hernandez RN 11/06/2018 History [facility] [address] [place] [address] Dhaval Casey MD 11/06/2018 2:00 PM CDT Office Visit [facility] [address] [place] [address] Dhaval Casey MD Essential hypertension (Primary Dx); Sinus bradycardia; Dyspnea on exertion 10/27/2018 11:45 AM CDT Ancillary Procedure [facility] [address] [place] [address] Dhaval Casey MD 10/27/2018 9:25 AM CDT - 10/27/2018 11:59 PM CDT Hospital Encounter [facility] [address] [place] [address] Dhaval Casey MD Essential hypertension; Dyspnea on exertion Discharge Disposition: Home or Self Care 10/16/2018 Procedure Pass [facility] [address] [place] [address] 10/16/2018 History [facility] [address] [place] [address] Dhaval Casey MD 10/16/2018 11:30 AM CDT Office Visit [facility] [address] [place] [address] Dhaval Casey MD Essential hypertension (Primary Dx); Dyspnea on exertion 09/21/2018 Transcribe Orders [facility] - REGISTRATION [address] [place], [place] [address] Sarah Clifford MD Menopause (Primary Dx); Breast screening 09/21/2018 Transcribe Orders [facility] - REGISTRATION [address] [place] [address] Sarah Clifford MD 11/18/2016 1:07 PM CDT - 11/18/2016 11:59 PM CDT Hospital Encounter [facility] [address] [place], [place] [address] Sarah Clifford MD Asymptomatic postmenopausal status (age-related) (natural) Discharge Disposition: Home or Self Care 11/12/2016 Procedure Pass [facility] [address] [place], [place] [address] 12/16/2018 Procedure Pass [facility] - EXTERNAL FILMS Sandra [place] [facility] [address] 11/14/2016 2:10 PM CDT Ancillary Procedure [facility] - EXTERNAL FILMS Sandra [place] [address] Sarah Clifford MD 11/12/2016 Transcribe Orders [facility] [address] [place] [address] Sarah Clifford MD Asymptomatic postmenopausal status (age-related) (natural) (Primary Dx) 09/27/2016 2:00 PM CDT - 09/27/2016 11:59 PM CDT Hospital Encounter [facility] [address] [place] [address] Hugo Pulliam MD Vertebral syndrome Discharge Disposition: Home or Self Care 09/19/2016 Procedure Pass [facility] [address] [place] [address] 09/19/2016 Transcribe Orders [facility] [address] [place] [address] Hugo Pulliam MD Vertebral syndrome (Primary Dx) 02/26/2023 Procedure Pass [facility] - EXTERNAL FILMS [address] [place] [address] 01/29/2016 9:10 AM CDT Ancillary Procedure [facility] - EXTERNAL FILMS [address] [place] [address] Mauri Luciano MD 02/26/2023 Procedure Pass [facility] - EXTERNAL FILMS [address] [place] [address] 08/01/2015 11:15 AM CDT Ancillary Procedure [facility] - EXTERNAL FILMS [address] [place] [address] Mauri Luciano MD 07/05/2015 Procedure visit [facility] [address] [place] [address] 07/01/2015 Procedure visit [facility] [address] [place] [address] 06/27/2015 4:36 AM [facility] External Interface [address] [place] [address] Samuel Doe MD Discharge Disposition: Home or Self Care 06/27/2015 Procedure visit [facility] [address] [place] [address] 06/27/2015 Hospital [facility] [address] [place] [address] 06/26/2015 9:40 PM ASSISTANT REAL ESTATE MANAGER - 06/27/2015 1:55 AM ASSISTANT REAL ESTATE MANAGER Emergency [facility]NCOUN[facility] [address] [place] [address] Steven Mondragon MD 06/26/2015 Procedure visit [facility] [address] [place] [address] 06/26/2015 Hospital [facility] CONVERSION ENCOUNTER [address] [place] [address] 12/16/2018 Procedure Pass [facility] - EXTERNAL FILMS [address] [place] [address] 03/06/2015 1:55 PM ASSISTANT REAL ESTATE MANAGER Ancillary Procedure [facility] - EXTERNAL FILMS [address] [place] [address] Sarah Clifford MD 12/16/2014 Hospital [facility] CONVERSION ENCOUNTER [address] [place], [place] [address] 12/16/2014 11:40 AM CDT - 12/16/2014 1:39 PM CDT Emergency [facility] ENCOUNTER [address] [place] [address] Da Dickson MD 07/04/2014 Procedure visit [facility] [address] [place] [address] 12/05/2013 Procedure visit [facility] [address] [place] [address] 11/26/2013 Procedure visit [facility] [address] [place] [address] 11/23/2013 Procedure visit [facility] [address] [place] [address] 11/12/2013 Procedure visit [facility] [address] [facility] [address] [place] [address] 10/01/2013 Procedure visit [facility] [address] [facility] [address] [place] [address] 09/24/2013 Procedure visit [facility] [address] [facility] [address] [place] [address] 01/31/2013 Procedure visit [facility] [address] [facility] [place] [address] 01/26/2013 Procedure visit [facility] [address] [facility] [address] [place] [address] 01/12/2013 Procedure visit [facility] [address] [facility] [address] [place] [address] 01/05/2013 Procedure visit [facility] [address] [facility] [place] [address] 01/01/2013 Procedure visit [facility] [address] [facility] [address] [place], [place] [address] 12/28/2012 Procedure visit [facility] [address] [facility] [place] [address] 08/02/2012 Procedure visit [facility] [address] [facility] [place] [address] 07/30/2012 Procedure visit [facility] [address] [facility] [address] [place] [address] Allergies No known active allergies Medications * Be aware that medications may not be up to date as of this document.Always verify current medications with patient. albuterol HFA 90 mcg/actuation inhaler INHALE 2 PUFFS INTO THE LUNGS EVERY 4 (FOUR) HOURS NEEDED FOR WHEEZING OR SHORTNESS OF BREATH. Active cyanocobalamin, vitamin B-12, 2,500 mcg Tablet, Sublingual Place 2,500 mcg under the tongue every 7 days. Active fluticasone propionate (FLONASE) 50 mcg/actuation nasal spray USE 2 SPRAYS IN EACH NOSTRIL ONCE DAILY NEEDED FOR RHINITIS Active multivitamin (THERAGRAN) per tablet Take 1 tablet by mouth. Active pravastatin (PRAVACHOL) 40 mg tablet Take 1 tablet by mouth in the morning. Active tiZANidine (ZANAFLEX) 4 mg tablet Take 1 tablet by mouth every 8 (eight) hours as needed (SPASMS). Active oxybutynin XL (DITROPAN-XL) 10 mg 24 hr tablet Take 1 tablet by mouth in the morning. Active FLUoxetine (PROzac) 20 mg capsule TAKE 1 CAPSULE EVERY DAY Strength: 20 mg Active cephalexin (KEFLEX) 500 mg capsule Take 1 capsule by mouth 3 (three) times a week. Active furosemide (LASIX) 20 mg tablet TAKE 1 TABLET BY MOUTH DAILY. 30 tablet 11 Active polyethylene glycol (GLYCOLAX,JILL AX) 17 gram packet Take 17 g by mouth in the morning and 17 g before bedtime. 60 each 1 Active mirtazapine (REMERON) 30 MG tablet Take 1.5 tablets by mouth at bedtime. Active lactulose (CHRONULAC) 20 gram/30 mL Solution solution Take 30 mLs by mouth 3 (three) times daily as needed. Active calcium carbonate (CALCIUM 500 ORAL) Take 500 mg by mouth in the morning. Active pantoprazole (PROTONIX) 40 mg tablet Take 1 tablet by mouth every morning. Active Trelegy Ellipta 100-62.5-25 mcg Disk with Device Active losartan (COZAAR) 50 mg tablet TAKE 1 TABLET IN THE MORNING AND TAKE 1 TABLET BEFORE BEDTIME 200 tablet 3 025 Active butalbital-acet aminophen-caffe ine (FIORICET, ESGIC) 50-325-40 mg per tablet Active gabapentin (NEURONTIN) 300 mg capsuleIndicati ons:Chronic pain disorder TAKE 1 CAPSULE EVERY 8 HOURS NEEDED FOR NEUROPATHIC PAIN. IF SEDATING, TAKE ONLY AT NIGHT. 270 capsule 3 Active Additional Information Patient not taking.Reported on 02/25/2025 carvediloL (COREG) 6.25 mg tabletIndicatio ns:Essential hypertension TAKE 1 TABLET IN THE MORNING AND EVENING WITH MEALS 200 tablet 3 Active bisacodyL (DULCOLAX) [address] 1 suppository rectally daily as needed (constipation) . 12 suppository 023 2024 Discontinued( ed List Cleanup) senna (SENOKOT) 8.6 mg tablet Take 1 tablet by mouth in the morning and 1 tablet before bedtime. 2024 Discontinued( ed List Cleanup) docusate sodium (COLACE) 100 mg capsule Take 1 capsule by mouth in the morning and 1 capsule before bedtime. 2024 Discontinued( ed List Cleanup) melatonin 5 mg Tablet Take 1 tablet by mouth at bedtime. 2024 Discontinued( ed List Cleanup) HYDROcodone-arik taminophen (NORCO) 10-325 mg per tablet Take 1 tablet by mouth every 8 (eight) hours as needed. 024 2024 Discontinued( ed List Cleanup) carvediloL (COREG) 6.25 mg tabletIndicatio ns:Essential hypertension Take 1 tablet by mouth in the morning and 1 tablet in the evening. Take with meals. 180 tablet 3 025 2024 Discontinued HYDROcodone-arik taminophen (NORCO) 10-325 mg per tabletIndicatio ns:Chronic pain disorder Take 1 tablet by mouth every 8 (eight) hours as needed for up to 30 days. 90 tablet 025 2024 amoxicillin-pot clavulanate (AUGMENTIN) 500-125 mg per tablet Take 1 tablet by mouth in the morning and 1 tablet in the evening. 025 2024 Discontinued(M ed List Cleanup) Active Problems Problem Noted Date Diagnosed Date Lung nodules 04/18/2023 Left lower lobe pneumonia 02/19/2023 Assessment & Plan (02/24/2023 10:58 AM ASSISTANT REAL ESTATE MANAGER): History & Physical Discharge Summary S/p Levaquin x3 days Follow-up S/p Levaquin x3 days Assessment & Plan (02/23/2023 4:30 PM ASSISTANT REAL ESTATE MANAGER): History & Physical Discharge Summary Follow-up S/p Levaquin x3 days Assessment & Plan (02/22/2023 1:24 PM CDT): History & Physical Discharge Summary Follow-up S/p Levaquin x3 days Assessment & Plan (02/21/2023 8:08 AM CDT): History & Physical Discharge Summary Follow-up Levaquin Assessment & Plan (02/20/2023 5:46 PM CDT): History & Physical Discharge Summary Follow-up Levaquin Assessment & Plan (02/19/2023 11:29 AM CDT): History & Physical Discharge Summary Follow-up Levaquin Osteoarthritis of left knee s/p L TKA 02/04/23 1 Assessment & Plan (02/24/2023 10:57 AM ASSISTANT REAL ESTATE MANAGER): History & Physical Discharge Summary Underwent knee replacement 02/[address] Lopez. She was on Eliquis for DVT prophylaxis. Orthopedic team saw patient while in-house since missed her follow- up appointment due to being hospitalized. She has another follow-up appointment with Dr. Lopez March 04 at 10:45 AM. Follow-up Weightbearing as tolerated, Ortho recommended gait training and fall precautions Ruel YOU for DVT prophylaxis Assessment & Plan (02/23/2023 4:28 PM ASSISTANT REAL ESTATE MANAGER): History & Physical Discharge Summary Underwent knee replacement 02/[address] Lopez. She was on Eliquis for DVT prophylaxis. Orthopedic team saw patient while in-house since missed her follow- up appointment due to being hospitalized. She has another follow-up appointment with Dr. Lopez March 04 at 10:45 AM. Follow-up Weightbearing as tolerated, Ortho recommended gait training and fall precautions DOAC, TEDs for DVT prophylaxis Assessment & Plan (02/22/2023 1:23 PM CDT): History & Physical Discharge Summary Underwent knee replacement 02/[address] Lopez. Orthopedic team saw patient while in-house since missed her follow-up appointment due to being hospitalized. She has another follow-up appointment with Dr. Lopez March 04 at 10:45 AM. Follow-up Weightbearing as tolerated, Ortho recommended gait training and fall precautions Eliquis, TEDs for DVT prophylaxis Assessment & Plan (02/21/2023 8:06 AM CDT): History & Physical Discharge Summary Underwent knee replacement 02/[address] Lopez. Orthopedic team saw patient while in-house since missed her follow-up appointment due to being hospitalized. She has another follow-up appointment with Dr. Lopez March 04 at 10:45 AM. Follow-up Weightbearing as tolerated, Ortho recommended gait training and fall precautions Eliquis, TEDs for DVT prophylaxis Assessment & Plan (02/20/2023 5:46 PM CDT): History & Physical Discharge Summary Follow-up Knee replacement 02/[address] Bennett. Has been unable to take care of herself at home since the surgery. Orthopedic team saw patient in house since missed her follow-up appointment with Dr. Lopez. Weightbearing as tolerated, Ortho recommended gait training and fall precautions Jennyquis, TEDs for DVT prophylaxis Has follow-up appointment with Dr. Lopez March 04 at 10:45 AM Assessment & Plan (02/19/2023 11:25 AM CDT): History & Physical Discharge Summary Follow-up Knee replacement 02/[address] Bennett. Has been unable to take care of herself at home since the surgery. We will send referrals to SNF. Continue DVT prophylaxis with Lovenox She had an appointment for follow-up today, spoke with Han with [facility] who will reach out to Dr. Bennett's office to notify them of her hospitalization in case they are able to see her here. If not recommendations for when to follow-up Assessment & Plan (02/18/2023 11:34 AM CDT): History & Physical Discharge Summary Follow-up Knee replacement 02/[address] Bennett. Has been unable to take care of herself at home since the surgery. We will send referrals to SNF. -Continue DVT prophylaxis with Lovenox. Chronic diastolic congestive heart failure 02/18 Overview (04/24/2023): 10/23/21 Echo- LVEF 55-65% Assessment & Plan (04/24/2023 2:56 PM ASSISTANT REAL ESTATE MANAGER): - Appears compensated on exam. No signs of volume overload. - Continue current management Assessment & Plan (02/24/2023 10:57 AM ASSISTANT REAL ESTATE MANAGER): History & Physical Discharge Summary Continue ARB and Lasix at home dose for diuresis. Started Coreg Follow-up Continue Lasix. Start Coreg low-dose and start on Aldactone to optimize triple therapy. Hold ARB for now Assessment & Plan (02/23/2023 4:36 PM ASSISTANT REAL ESTATE MANAGER): History & Physical Discharge Summary Follow-up Continue Lasix. Start Coreg low-dose and start on Aldactone to optimize triple therapy. Hold ARB for now Assessment & Plan (02/22/2023 1:23 PM CDT): History & Physical Discharge Summary Follow-up Continue Lasix Assessment & Plan (02/21/2023 8:06 AM CDT): History & Physical Discharge Summary Follow-up Continue Lasix Assessment & Plan (02/20/2023 5:46 PM CDT): History & Physical Discharge Summary Follow-up Continue Lasix Assessment & Plan (02/19/2023 11:26 AM CDT): History & Physical Discharge Summary Follow-up Continue Lasix Assessment & Plan (02/18/2023 1:07 PM CDT): History & Physical Discharge Summary Follow-up reports having dyspnea. We will give a dose of Lasix. Checking CTA to rule out PE. Dyspnea 02/18/2023 Assessment & Plan (02/23/2023 4:30 PM ASSISTANT REAL ESTATE MANAGER): History & Physical Discharge Summary Due to pneumonia. CTA negative for PE. Follow-up Due to pneumonia s/p Levaquin x3 days Assessment & Plan (02/22/2023 1:24 PM CDT): History & Physical Discharge Summary CTA negative PE. Revealed LLL bronchopneumonia treated with 3 days of Levaquin EOT 01/22. Follow-up CTA obtained 02/18 after patient complained of dyspnea symptoms. Negative for PE but did reveal left lower lobe bronchopneumonia treated with Levaquin x3 days EOT 01/22 Assessment & Plan (02/21/2023 8:07 AM CDT): History & Physical Discharge Summary CTA negative PE. Revealed LLL bronchopneumonia treated with 3 days of Levaquin EOT 01/22. Follow-up CTA obtained 02/18 after patient complained of dyspnea symptoms. Negative for PE but did reveal left lower lobe bronchopneumonia. Levaquin x3 days EOT 01/22 Assessment & Plan (02/20/2023 5:46 PM CDT): History & Physical Discharge Summary Follow-up CTA obtained 02/18 after patient complained of dyspnea symptoms. Negative for PE but did reveal left lower lobe bronchopneumonia. Levaquin x3 days EOT 01/22 Assessment & Plan (02/19/2023 11:27 AM CDT): History & Physical Discharge Summary Follow-up CTA obtained 02/18 after patient complained of dyspnea symptoms. Negative for PE but did reveal left lower lobe bronchopneumonia. Levaquin x3 days EOT 01/22 Assessment & Plan (02/18/2023 1:07 PM CDT): History & Physical Discharge Summary Follow-up she is tachycardic and dyspneic. Recent knee surgery. States she was taking Eliquis at home for DVT prophylaxis. Check CTA to rule out PE. Check bilateral lower extremity Dopplers. Also has history of congestive heart failure. Check BNP. Give a dose of Lasix. Hoarseness 02/18/2023 Assessment & Plan (02/24/2023 10:57 AM ASSISTANT REAL ESTATE MANAGER): History & Physical Discharge Summary Patient developed hoarseness (without sore throat) since knee surgery. Per Ortho, inhalational anesthesia can cause side effect, monitor for improvement. Follow-up Patient developed hoarseness (without sore throat) since knee surgery. Per Ortho, inhalational anesthesia can cause side effect. Patient is aware, monitor over time. Assessment & Plan (02/23/2023 4:30 PM ASSISTANT REAL ESTATE MANAGER): History & Physical Discharge Summary Patient developed hoarseness (without sore throat) since knee surgery. Per Ortho, inhalational anesthesia can cause side effect, monitor for improvement. Follow-up Patient developed hoarseness (without sore throat) since knee surgery. Per Ortho, inhalational anesthesia can cause side effect. Patient is aware, monitor over time. Assessment & Plan (02/22/2023 1:24 PM CDT): History & Physical Discharge Summary Patient developed hoarseness (without sore throat) since knee surgery. Per Ortho, inhalational anesthesia can cause side effect, monitor for improvement. Follow-up Patient developed hoarseness (without sore throat) since knee surgery. Per Ortho, inhalational anesthesia can cause side effect, monitor for improvement. Assessment & Plan (02/21/2023 8:08 AM CDT): History & Physical Discharge Summary Patient developed hoarseness (without sore throat) since knee surgery. Per Ortho, inhalational anesthesia can cause side effect, monitor for improvement. Follow-up Patient developed hoarseness (without sore throat) since knee surgery. Per Ortho, inhalational anesthesia can cause side effect, monitor for improvement. Assessment & Plan (02/20/2023 5:46 PM CDT): History & Physical Discharge Summary Follow-up Hoarseness since knee surgery not associated with sore throat. Possibly anesthesia related Assessment & Plan (02/19/2023 11:29 AM CDT): History & Physical Discharge Summary Follow-up Hoarseness since knee surgery not associated with sore throat. ? Possibly anesthesia related Assessment & Plan (02/18/2023 1:15 PM CDT): History & Physical Discharge Summary Follow-up hoarseness since knee surgery. Reaching out to Ortho team to find out about the anesthesia used Constipation 02/16/2023 Assessment & Plan (02/24/2023 10:56 AM ASSISTANT REAL ESTATE MANAGER): History & Physical She presents with severe constipation and not having a bowel movement since before surgery on 02/04. CT scan of the abdomen pelvis shows severe constipation. This is likely the etiology of her inflammatory changes as well. No evidence clinically of diverticulitis and I agree with not giving any antibiotics for this. At this time we will place her in observation and continue with serial enemas. We will monitor for response though she may need further escalation if no relief is obtained. Discharge Summary Presents with severe constipation, having last bowel movement prior to knee replacement 02/04. Now resolved and having regular bowel movements on current regimen. As needed Dulcolax bowel movement greater than 2 days Follow-up Continue current bowel regimen Assessment & Plan (02/23/2023 4:26 PM ASSISTANT REAL ESTATE MANAGER): History & Physical She presents with severe constipation and not having a bowel movement since before surgery on 02/04. CT scan of the abdomen pelvis shows severe constipation. This is likely the etiology of her inflammatory changes as well. No evidence clinically of diverticulitis and I agree with not giving any antibiotics for this. At this time we will place her in observation and continue with serial enemas. We will monitor for response though she may need further escalation if no relief is obtained. Discharge Summary Presents with constipation. Reports not having a bowel movement since having left knee replacement surgery on 02/04. CT of the abdomen/pelvis revealed constipation. She was given 2 enemas and had multiple large bowel movements. She feels better and declines further enemas. Recommend remaining on clear liquid diet today and tomorrow and avoiding narcotics. Recommend taking MiraLAX and Senokot, both twice daily. Will give prescription for Dulcolax suppositories to be used as needed. Advised to follow-up closely with PCP. Follow-up Continue current bowel regimen Assessment & Plan (02/22/2023 1:23 PM CDT): History & Physical She presents with severe constipation and not having a bowel movement since before surgery on 02/04. CT scan of the abdomen pelvis shows severe constipation. This is likely the etiology of her inflammatory changes as well. No evidence clinically of diverticulitis and I agree with not giving any antibiotics for this. At this time we will place her in observation and continue with serial enemas. We will monitor for response though she may need further escalation if no relief is obtained. Discharge Summary Presents with constipation. Reports not having a bowel movement since having left knee replacement surgery on 02/04. CT of the abdomen/pelvis revealed constipation. She was given 2 enemas and had multiple large bowel movements. She feels better and declines further enemas. Recommend remaining on clear liquid diet today and tomorrow and avoiding narcotics. Recommend taking MiraLAX and Senokot, both twice daily. Will give prescription for Dulcolax suppositories to be used as needed. Advised to follow-up closely with PCP. Follow-up Continue current bowel regimen Assessment & Plan (02/21/2023 8:03 AM CDT): History & Physical She presents with severe constipation and not having a bowel movement since before surgery on 02/04. CT scan of the abdomen pelvis shows severe constipation. This is likely the etiology of her inflammatory changes as well. No evidence clinically of diverticulitis and I agree with not giving any antibiotics for this. At this time we will place her in observation and continue with serial enemas. We will monitor for response though she may need further escalation if no relief is obtained. Discharge Summary Presents with constipation. Reports not having a bowel movement since having left knee replacement surgery on 02/04. CT of the abdomen/pelvis revealed constipation. She was given 2 enemas and had multiple large bowel movements. She feels better and declines further enemas. Recommend remaining on clear liquid diet today and tomorrow and avoiding narcotics. Recommend taking MiraLAX and Senokot, both twice daily. Will give prescription for Dulcolax suppositories to be used as needed. Advised to follow-up closely with PCP. Follow-up Resolved. Continue current bowel regimen Assessment & Plan (02/20/2023 5:44 PM CDT): History & Physical She presents with severe constipation and not having a bowel movement since before surgery on 02/04. CT scan of the abdomen pelvis shows severe constipation. This is likely the etiology of her inflammatory changes as well. No evidence clinically of diverticulitis and I agree with not giving any antibiotics for this. At this time we will place her in observation and continue with serial enemas. We will monitor for response though she may need further escalation if no relief is obtained. Discharge Summary Presents with constipation. Reports not having a bowel movement since having left knee replacement surgery on 02/04. CT of the abdomen/pelvis revealed constipation. She was given 2 enemas and had multiple large bowel movements. She feels better and declines further enemas. Recommend remaining on clear liquid diet today and tomorrow and avoiding narcotics. Recommend taking MiraLAX and Senokot, both twice daily. Will give prescription for Dulcolax suppositories to be used as needed. Advised to follow-up closely with PCP. Follow-up Resolved. Continue current bowel regimen Assessment & Plan (02/19/2023 11:18 AM CDT): History & Physical She presents with severe constipation and not having a bowel movement since before surgery on 02/04. CT scan of the abdomen pelvis shows severe constipation. This is likely the etiology of her inflammatory changes as well. No evidence clinically of diverticulitis and I agree with not giving any antibiotics for this. At this time we will place her in observation and continue with serial enemas. We will monitor for response though she may need further escalation if no relief is obtained. Discharge Summary Presents with constipation. Reports not having a bowel movement since having left knee replacement surgery on 02/04. CT of the abdomen/pelvis revealed constipation. She was given 2 enemas and had multiple large bowel movements. She feels better and declines further enemas. Recommend remaining on clear liquid diet today and tomorrow and avoiding narcotics. Recommend taking MiraLAX and Senokot, both twice daily. Will give prescription for Dulcolax suppositories to be used as needed. Advised to follow-up closely with PCP. Follow-up Resolved. Continue current bowel regimen Assessment & Plan (02/18/2023 11:23 AM CDT): History & Physical She presents with severe constipation and not having a bowel movement since before surgery on 02/04. CT scan of the abdomen pelvis shows severe constipation. This is likely the etiology of her inflammatory changes as well. No evidence clinically of diverticulitis and I agree with not giving any antibiotics for this. At this time we will place her in observation and continue with serial enemas. We will monitor for response though she may need further escalation if no relief is obtained. Discharge Summary Presents with constipation. Reports not having a bowel movement since having left knee replacement surgery on 02/04. CT of the abdomen/pelvis revealed constipation. She was given 2 enemas and had multiple large bowel movements. She feels better and declines further enemas. Recommend remaining on clear liquid diet today and tomorrow and avoiding narcotics. Recommend taking MiraLAX and Senokot, both twice daily. Will give prescription for Dulcolax suppositories to be used as needed. Advised to follow-up closely with PCP. Follow-up continue bowel regimen. Assessment & Plan (02/17/2023 10:19 AM CDT): History & Physical She presents with severe constipation and not having a bowel movement since before surgery on 02/04. CT scan of the abdomen pelvis shows severe constipation. This is likely the etiology of her inflammatory changes as well. No evidence clinically of diverticulitis and I agree with not giving any antibiotics for this. At this time we will place her in observation and continue with serial enemas. We will monitor for response though she may need further escalation if no relief is obtained. Discharge Summary Presents with constipation. Reports not having a bowel movement since having left knee replacement surgery on 02/04. CT of the abdomen/pelvis revealed constipation. She was given 2 enemas and had multiple large bowel movements. She feels better and declines further enemas. Recommend remaining on clear liquid diet today and tomorrow and avoiding narcotics. Recommend taking MiraLAX and Senokot, both twice daily. Will give prescription for Dulcolax suppositories to be used as needed. Advised to follow-up closely with PCP. Follow-up Assessment & Plan (02/16/2023 10:23 PM CDT): History & Physical She presents with severe constipation and not having a bowel movement since before surgery on 02/04. CT scan of the abdomen pelvis shows severe constipation. This is likely the etiology of her inflammatory changes as well. No evidence clinically of diverticulitis and I agree with not giving any antibiotics for this. At this time we will place her in observation and continue with serial enemas. We will monitor for response though she may need further escalation if no relief is obtained. Discharge Summary Follow-up Preop cardiovascular exam 01/21/2023 Acute diastolic CHF (congestive heart failure) 1 Generalized weakness 01/05/2019 Assessment & Plan (01/05/2019 7:26 PM CDT): History & Physical History and presentation are not consistent with CVA. The patient currently has no focal deficit. Case was discussed with the consulting ED provider. MRI and carotid ultrasound were ordered in the ED. There is no indication for admission at this time. The patient is on multiple sedating medications including a combination of opiate and benzodiazepine. Would recommend reviewing of her medications with her PCP as they are likely causing or contributing to this. I will await results of MRI brain and carotid ultrasound before final recommendation. This was discussed in detail with the patient and she agreed with the plan. Discharge Summary Follow-up Hyperlipidemia 10/16/2018 Assessment & Plan (04/24/2023 2:55 PM ASSISTANT REAL ESTATE MANAGER): - Continue current management with Pravastatin Class 1 obesity due to exces s calories with serious comorbidity and body mass index (BMI) of 31.0 to 31.9 in adult 10/16/2018 Assessment & Plan (04/24/2023 2:55 PM ASSISTANT REAL ESTATE MANAGER): - BMI 31.48 - Patient would benefit from weight loss - Discussed lifestyle modifications with diet and exercise Dyspnea on exertion 10/16/2018 Microscopic hematuria 10/05/2018 Age-related osteoporosis wit hout current pathological fracture 09/21/2018 CKD (chronic kidney disease), stage III 07/14/19 19 Assessment & Plan (04/24/2023 2:56 PM ASSISTANT REAL ESTATE MANAGER): - Most recent lab work shows creatinine 1.18 - Continue to monitor Assessment & Plan (02/24/2023 10:54 AM ASSISTANT REAL ESTATE MANAGER): History & Physical Discharge Summary At her baseline renal function creatinine around 1 Follow-up Renally dose meds, avoid nephrotoxic agents with possible Assessment & Plan (02/23/2023 4:25 PM ASSISTANT REAL ESTATE MANAGER): History & Physical Discharge Summary Renal function stable, her baseline creatinine is ~1 Follow-up Renally dose meds, avoid nephrotoxic agents with possible Assessment & Plan (02/22/2023 1:23 PM CDT): History & Physical Discharge Summary Renal function stable, her baseline creatinine is ~1 Follow-up Renally dose meds, avoid nephrotoxic agents with possible Assessment & Plan (02/21/2023 8:01 AM CDT): History & Physical Discharge Summary Renal function stable, her baseline creatinine is ~1 Follow-up Stable renal function Renally dose meds, avoid nephrotoxic agents with possible Assessment & Plan (02/20/2023 5:44 PM CDT): History & Physical Discharge Summary Follow-up Recheck RFP tomorrow morning. Contrast exposure from CTA 02/18 Renally dose meds, avoid nephrotoxic agents with possible Assessment & Plan (02/19/2023 11:17 AM CDT): History & Physical Discharge Summary Follow-up Recheck RFP tomorrow morning. Contrast exposure from CTA 02/18 Renally dose meds, avoid nephrotoxic agents with possible Assessment & Plan (02/18/2023 11:32 AM CDT): History & Physical Discharge Summary Follow-up creatinine 0.84 on admission which is improved from baseline of 1.1. Renally dose all medicines. Recurrent UTI 07/13/2018 Impaired fasting glucose 11/12/2017 Mild protein malnutrition 11/12/2017 Chronic allergic rhinitis 11/29/2016 Dyslipidemia 11/11/2016 Assessment & Plan (02/24/2023 10:54 AM ASSISTANT REAL ESTATE MANAGER): History & Physical Continue statin. Discharge Summary Continue statin Follow-up Continue statin Assessment & Plan (02/23/2023 4:25 PM ASSISTANT REAL ESTATE MANAGER): History & Physical Continue statin. Discharge Summary Continue statin Follow-up Continue statin Assessment & Plan (02/22/2023 1:23 PM CDT): History & Physical Continue statin. Discharge Summary Continue statin Follow-up Continue statin Assessment & Plan (02/21/2023 8:02 AM CDT): History & Physical Continue statin. Discharge Summary Continue statin Follow-up Continue statin Assessment & Plan (02/20/2023 5:44 PM CDT): History & Physical Continue statin. Discharge Summary Statin Follow-up Continue statin Assessment & Plan (02/19/2023 11:17 AM CDT): History & Physical Continue statin. Discharge Summary Statin Follow-up Continue statin Assessment & Plan (02/18/2023 11:23 AM CDT): History & Physical Continue statin. Discharge Summary Statin Follow-up Assessment & Plan (02/17/2023 10:17 AM CDT): History & Physical Continue statin. Discharge Summary Statin Follow-up Assessment & Plan (02/16/2023 10:24 PM CDT): History & Physical Continue statin. 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 Continue home medications. Discharge Summary Follow-up Bilateral artificial lens implant 06/04/2016 Bilateral dry eyes 06/04/2016 Hearing loss in right ear 06/04/2016 Long-term use of aspirin therapy 06/04/2016 Obstructive chronic bronchitis without exacerbat ion 06/04/2016 Peripheral vascular angiopla sty status with implants and grafts 06/04/2016 Overview (10/16/2018): Overview: Gastric sleeve surgery in [facility] in July [address] Andersen Primary osteoarthritis involving multiple joints 06/04/2016 Chronic low back pain with sciatica 01/30/2015 Overview (10/16/2018): Overview: Bulging disc and lumbar stenosis in her lower back with resultant sciatica. Under the care of Dr. Pulliam Assessment & Plan (02/24/2023 10:58 AM ASSISTANT REAL ESTATE MANAGER): History & Physical Discharge Summary Patient can resume her home med [place]/325 dose as needed, counseled on limiting use. Follow-up Restarted back on her home P[place] 10-325 mg dose and tolerating. Advised on limiting use if possible Assessment & Plan (02/23/2023 4:25 PM ASSISTANT REAL ESTATE MANAGER): History & Physical Discharge Summary Patient can resume [place]/325 dose as needed, counseled on limiting use. Follow-up Restarted back on her home [place] 10-325 mg dose and tolerating. Advised on limiting use if possible Assessment & Plan (02/22/2023 1:23 PM CDT): History & Physical Discharge Summary Patient can resume [place]/325 dose as needed, counseled on limiting use. Follow-up Restarted back on her home [place] 10-325 mg dose and tolerating. Advised on limiting use if possible Assessment & Plan (02/21/2023 8:01 AM CDT): History & Physical Discharge Summary Patient can resume [place]/325 dose as needed, counseled on limiting use. Follow-up Restarted back on her home P[place] 10-325 mg dose and tolerating. Advised on limiting use if possible Assessment & Plan (02/20/2023 5:44 PM CDT): History & Physical Discharge Summary Follow-up Restarted back on her home P[place] 10-325 mg dose and tolerating. Advised on limiting use if possible Assessment & Plan (02/19/2023 11:16 AM CDT): History & Physical Discharge Summary Follow-up Restarted back on her home [place] 10-325 mg dose. Advised on limiting use if possible Assessment & Plan (02/18/2023 1:10 PM CDT): History & Physical Discharge Summary Follow-up Prescription monitoring program database reviewed noting patient is on [place] 10/325 mg chronically for back pain. Then she was increased to oxycodone 15 mg immediate release around the time of her surgery 02/04. She has no significant knee pain anymore. She has ongoing mild lower back pain with sciatica. Will restart her usual [place] but advised to avoid taking if at all possible. Assessment & Plan (01/05/2019 7:27 PM CDT): History & Physical Continue home medications. Recommendation otherwise per weakness. Discharge Summary Follow-up Essential hypertension 01/30/2015 Assessment & Plan (04/24/2023 2:54 PM ASSISTANT REAL ESTATE MANAGER): - Patient presents with elevated blood pressures over the past 2-3 months - Hypertensive in office today at 157/83 - Continue Losartan. Increase Carvedilol to 6.25mg BID - Encouraged patient to continue monitoring BP at home, 1-2 hours after taking medications and keep a log. Notify our office if BP remains persistently elevated. - Discussed limiting salt intake and avoiding NSAIDs - Patient will return to clinic in 2 weeks for follow-up - ER precautions discussed for significantly elevated BP despite compliance with all medications Assessment & Plan (02/24/2023 10:54 AM ASSISTANT REAL ESTATE MANAGER): History & Physical Continue home medications and monitor blood pressures. Discharge Summary Added Coreg low-dose. Patient continued on home losartan and Lasix dose for diuresis. Follow-up Continue losartan. Assessment & Plan (02/23/2023 4:25 PM ASSISTANT REAL ESTATE MANAGER): History & Physical Continue home medications and monitor blood pressures. Discharge Summary Resume home medication regimen losartan, Lasix for diuresis Follow-up Continue losartan. Assessment & Plan (02/22/2023 1:23 PM CDT): History & Physical Continue home medications and monitor blood pressures. Discharge Summary Resume home medication regimen losartan, Lasix for diuresis Follow-up Continue losartan. Assessment & Plan (02/21/2023 8:02 AM CDT): History & Physical Continue home medications and monitor blood pressures. Discharge Summary Resume home medication regimen losartan, Lasix for diuresis Follow-up Continue losartan. Assessment & Plan (02/20/2023 5:44 PM CDT): History & Physical Continue home medications and monitor blood pressures. Discharge Summary Resume home medication regimen Follow-up Continue losartan. Assessment & Plan (02/19/2023 11:18 AM CDT): History & Physical Continue home medications and monitor blood pressures. Discharge Summary Resume home medication regimen Follow-up Continue losartan. Assessment & Plan (02/18/2023 11:24 AM CDT): History & Physical Continue home medications and monitor blood pressures. Discharge Summary Resume home medication regimen Follow-up continue losartan. Assessment & Plan (02/17/2023 10:17 AM CDT): History & Physical Continue home medications and monitor blood pressures. Discharge Summary Resume home medication regimen Follow-up Assessment & Plan (02/16/2023 10:23 PM CDT): History & Physical Continue home medications and monitor blood pressures. Discharge Summary Follow-up Assessment & Plan (01/05/2019 7:28 PM CDT): History & Physical Her blood pressure is currently acceptable. Continue home regimen. Discharge Summary Follow-up Gastroesophageal reflux disease 01/30/2015 Assessment & Plan (02/24/2023 10:54 AM ASSISTANT REAL ESTATE MANAGER): History & Physical Continue PPI. Discharge Summary Protonix Follow-up Protonix Assessment & Plan (02/23/2023 4:25 PM ASSISTANT REAL ESTATE MANAGER): History & Physical Continue PPI. Discharge Summary Protonix Follow-up Protonix Assessment & Plan (02/22/2023 1:23 PM CDT): History & Physical Continue PPI. Discharge Summary Protonix Follow-up Protonix Assessment & Plan (02/21/2023 8:02 AM CDT): History & Physical Continue PPI. Discharge Summary Protonix Follow-up Protonix Assessment & Plan (02/20/2023 5:44 PM CDT): History & Physical Continue PPI. Discharge Summary Protonix Follow-up Protonix Assessment & Plan (02/19/2023 11:18 AM CDT): History & Physical Continue PPI. Discharge Summary Protonix Follow-up Protonix Assessment & Plan (02/17/2023 10:17 AM CDT): History & Physical Continue PPI. Discharge Summary Protonix Follow-up Assessment & Plan (02/16/2023 10:24 PM CDT): History & Physical Continue PPI. Discharge Summary Follow-up Major depression, chronic 01/30/2015 Assessment & Plan (02/24/2023 10:55 AM ASSISTANT REAL ESTATE MANAGER): History & Physical Continue home mirtazapine. Discharge Summary Mirtazapine increased to 45 mg nightly (insomnia symptoms reported). Prozac Follow-up Continue home meds mirtazapine and Prozac Increase mirtazapine to 45 mg As needed tramadol nightly for insomnia. Assessment & Plan (02/23/2023 4:26 PM ASSISTANT REAL ESTATE MANAGER): History & Physical Continue home mirtazapine. Discharge Summary Mirtazapine and Prozac Follow-up Continue home meds mirtazapine and Prozac Increase mirtazapine to 45 mg As needed tramadol nightly for insomnia. Assessment & Plan (02/22/2023 1:23 PM CDT): History & Physical Continue home mirtazapine. Discharge Summary Mirtazapine and Prozac Follow-up Mirtazapine and Prozac As needed tramadol nightly for insomnia Assessment & Plan (02/21/2023 9:21 AM CDT): History & Physical Continue home mirtazapine. Discharge Summary Mirtazapine and Prozac Follow-up Mirtazapine and Prozac Added tramadol nightly for insomnia Assessment & Plan (02/20/2023 5:44 PM CDT): History & Physical Continue home mirtazapine. Discharge Summary Mirtazapine and Prozac Follow-up Mirtazapine and Prozac Assessment & Plan (02/19/2023 11:18 AM CDT): History & Physical Continue home mirtazapine. Discharge Summary Mirtazapine and Prozac Follow-up Mirtazapine and Prozac Assessment & Plan (02/18/2023 11:25 AM CDT): History & Physical Continue home mirtazapine. Discharge Summary Mirtazapine and Prozac Follow-up Mirtazapine and Prozac Assessment & Plan (02/17/2023 10:17 AM CDT): History & Physical Continue home mirtazapine. Discharge Summary Mirtazapine and Prozac Follow-up Assessment & Plan (02/16/2023 10:24 PM CDT): History & Physical Continue home mirtazapine. Discharge Summary Follow-up Overactive bladder 01/30/2015 Primary insomnia 01/30/2015 Sinus bradycardia 11/04/2013 Overview (10/16/2018): Overview: Under the care of her metallic yarn slitting machine operator Dr. Dhaval Casey at [facility]. Family History Medical History Relation Comments Diabetes Father Heart failure Father Arthritis Mother Dementia Mother Hypertension Mother Relation Status Comments Father Mother Social History Smoking Status as of 03/24/2025 Tobacco Use Types Packs/Day Years Used Date Smoking Tobacco: Never Assessed [facility] Utilities Answer Date Recorded In the past 12 months has th e electric, gas, oil, or water company [...] How often do you attend chur or sikhism services? Never 04/16/2023 Do you belong to any clubs o r organizations such as judaism groups, unions, fraternal or athletic groups, or [...] and heating? Not hard at all 04/16/2023 [facility] - Occupational [...] place to sleep or slept in a retirement (including now)? No 04/16/2023 Sex and Gender Information Value Date Recorded Sex Assigned at Not on file Legal Sex Female 10:03 PM CDT Gender Identity Not on file Sexual Orientation Not on file Last Filed Vital Signs Vital Sign Reading Time Taken Comments Blood Pressure 104/60 02/25/2025 11:17 AM ASSISTANT REAL ESTATE MANAGER Pulse 84 02/25/2025 11:17 AM ASSISTANT REAL ESTATE MANAGER Temperature 36.4 C (97.6 F) 08/26/2024 3:04 PM CDT Respiratory Rate 20 08/26/2024 4:36 PM CDT Oxygen Saturation 97% 02/25/2025 11:17 AM ASSISTANT REAL ESTATE MANAGER Inhaled Oxygen Concentration - - Weight 99.3 kg (219 lb) 02/25/2025 11:17 AM ASSISTANT REAL ESTATE MANAGER Height 170.2 cm (5' 7.01 ) 02/25/2025 11:17 AM Yvan LAZO Body Mass Index 34.29 02/25/2025 11:17 AM ASSISTANT REAL ESTATE MANAGER Plan of Treatment Upcoming Encounters Date Type Department Care Team (Late st Contact Info) Description 04/29/2025 2:15 PM ASSISTANT REAL ESTATE MANAGER Office Visit [facility] [address] [place] [phone] Dhaval Casey MD [id number] [place], [place] [id number] Procedures Procedure Name Priority Date/Time Associated Diagnosis Comments ECHO COMPLETE STAT 02/25/2025 12:02 PM ASSISTANT REAL ESTATE MANAGER Shortness of breath NM CARDIAC PERFUSION SPECT MULTIPLE STUDIES REST AND OR STRESS Routine 02/11/2025 12:28 PM CDT Chronic diastolic congestive heart failure (HCC) Sinus bradycardia Dyspnea on exertion ZIO PATCH Routine 01/14/2025 4:05 PM CDT Sinus bradycardia NC ECG ROUTINE ECG W/LEAST 12 LDS W/I&R Routine 01/14/2025 3:20 PM CDT Essential hypertension Chronic diastolic congestive heart failure (HCC) XR CHEST 1 VIEW STAT 08/26/2024 3:54 PM CDT CBC WITH AUTO DIFFERENTIAL STAT 08/26/2024 3:40 PM CDT DENISE 2 FLU + SARS ANTIGEN RAFAEL STAT 08/26/2024 3:40 PM CDT BRAIN NATRIURETIC PEPTIDE STAT 08/26/2024 3:40 PM CDT TROPONIN I LEVEL (TROPONIN ADV LEVEL) STAT 08/26/2024 3:40 PM CDT CBC AND DIFFERENTIAL STAT 08/26/2024 3:40 PM CDT COMPREHENSIVE METABOLIC PANEL STAT 08/26/2024 3:40 PM CDT ECG 12-LEAD STAT 08/26/2024 3:33 PM CDT XR CHEST 1 VIEW STAT 03/02/2024 11:48 AM ASSISTANT REAL ESTATE MANAGER XR HIP 2 OR 3 VIEW RIGHT W OR WO PELVIS STAT 03/02/2024 11:48 AM ASSISTANT REAL ESTATE MANAGER DENISE 2 FLU + SARS ANTIGEN RAFAEL STAT 03/02/2024 11:27 AM ASSISTANT REAL ESTATE MANAGER NC ECG ROUTINE ECG W/LEAST 12 LDS W/I&R Routine 01/09/2024 1:14 PM CDT Essential hypertension NC ECG ROUTINE ECG W/LEAST 12 LDS W/I&R Routine 04/24/2023 2:45 PM ASSISTANT REAL ESTATE MANAGER Essential hypertension XR FLUORO PROCEDURE GUIDANCE UP TO 1 HOUR Routine 04/18/2023 12:47 PM ASSISTANT REAL ESTATE MANAGER NC [facility] EBUS GUIDED SAMPL 1/2 NODE STATION/STRUX 04/18/2023 10:30 AM ASSISTANT REAL ESTATE MANAGER Lung nodules Bronchoscopy With Ultrasound 04/18/2023 10:30 AM ASSISTANT REAL ESTATE MANAGER Lung nodules NC BRONCHOSCOPY W/CPTR-ASST IMAGE-GUIDED NAVIGATION 04/18/2023 10:30 AM ASSISTANT REAL ESTATE MANAGER Lung nodules CT CHEST WO CONTRAST Routine 04/18/2023 8:46 AM ASSISTANT REAL ESTATE MANAGER Right upper lobe pulmonary nodule CYTOLOGY REQUEST Routine 04/18/2023 12:00 AM ASSISTANT REAL ESTATE MANAGER CBC WITH AUTO DIFFERENTIAL Routine 02/21/2023 3:24 AM CDT CBC AND DIFFERENTIAL Routine 02/21/2023 3:24 AM CDT RENAL FUNCTION PANEL Routine 02/21/2023 3:[address] ANGIOGRAM CHEST STAT 02/18/2023 3: 53 PM CDT USV DUPLEX VENOUS LOWER EXTREMITY BILATERAL Routine 02/18/2023 1:49 PM CDT Constipation, unspecified constipation type BRAIN NATRIURETIC PEPTIDE STAT 02/18/2023 1:[address] ABDOMEN PELVIS W IV CONTRAST STAT 02/16/2023 8:39 PM CDT XR ABDOMEN ACUTE SERIES W PA CHEST STAT 02/16/2023 5:51 PM CDT CBC WITH AUTO DIFFERENTIAL STAT 02/16/2023 5:51 PM CDT LIPASE STAT 02/16/2023 5:51 PM CDT COMPREHENSIVE METABOLIC PANEL STAT 02/16/2023 5:51 PM CDT CBC AND DIFFERENTIAL STAT 02/16/2023 5:51 PM CDT ECG 12-LEAD STAT 02/16/2023 5:17 PM CDT BASIC METABOLIC PANEL STAT 02/05/2023 6:25 AM CDT HEMOGRAM STAT 02/05/2023 6:25 AM CDT ANTIBODY SCREEN Routine 02/04/2023 12:35 PM CDT ABO/RH Routine 02/04/2023 12:35 PM CDT ABO/RH Routine 02/04/2023 12:35 PM CDT NC ECG ROUTINE ECG W/LEAST 12 LDS W/I&R Routine 01/21/2023 12:28 PM CDT Acute diastolic CHF (congestive heart failure) (HCC) Essential hypertension ANTIBODY SCREEN Routine 12/30/2022 12:43 PM CDT ABO/RH Routine 12/30/2022 12:43 PM CDT ABO/RH Routine 12/30/2022 12:43 PM CDT CBC WITH AUTO DIFFERENTIAL Routine 12/30/2022 12:43 PM CDT HEMOGLOBIN A1C Routine 12/30/2022 12:43 PM CDT APTT Routine 12/30/2022 12:43 PM CDT PROTIME-INR Routine 12/30/2022 12:43 PM CDT HEPATIC FUNCTION PANEL Routine 12:43 PM CDT BASIC METABOLIC PANEL Routine 12/30/2022 12:43 PM CDT CBC AND DIFFERENTIAL Routine 12/30/2022 12:43 PM CDT MRSA/MSSA BY PCR Routine 12/30/2022 12:43 PM CDT NC ECG ROUTINE ECG W/LEAST 12 LDS W/I&R Routine 07/12/2022 1:20 PM CDT Essential hypertension NM CARDIAC PERFUSION SPECT MULTIPLE STUDIES REST AND OR STRESS Routine 10/23/2021 2:03 PM CDT Acute diastolic congestive heart failure (HCC) ECHO COMPLETE STAT 10/23/2021 1:18 PM CDT Essential hypertension Dyspnea on exertion Peripheral vascular angioplasty status with implants and grafts CBC AND DIFFERENTIAL Routine 09/28/2021 3:00 PM CDT Essential hypertension Dyspnea on exertion Peripheral vascular angioplasty status with implants and grafts NC ECG ROUTINE ECG W/LEAST 12 LDS W/I&R Routine 09/28/2021 1:15 PM CDT Essential hypertension MM SCREENING MAMMOGRAM BILATERAL Routine 04/25/2021 12:56 PM ASSISTANT REAL ESTATE MANAGER Visit for screening mammogram US RETROPERITONEAL KIDNEY Routine 11/20/2020 8:51 AM CDT Stage 3a chronic kidney disease (HCC) BASIC METABOLIC PANEL Routine 06/16/2020 2:36 PM ASSISTANT REAL ESTATE MANAGER Essential hypertension NC ECG ROUTINE ECG W/LEAST 12 LDS W/I&R Routine 06/16/2020 1:07 PM ASSISTANT REAL ESTATE MANAGER Essential hypertension Acute diastolic CHF (congestive heart failure) (HCC) Dyslipidemia BASIC METABOLIC PANEL Routine 02/18/2020 1:15 PM CDT Essential hypertension Dyslipidemia Acute diastolic CHF (congestive heart failure) (HCC) ECHO COMPLETE STAT 02/18/2020 12:21 PM CDT Essential hypertension Dyslipidemia Acute diastolic CHF (congestive heart failure) (HCC) MM SCREENING MAMMOGRAM BILATERAL Routine 02/10/2020 11:53 AM CDT Screening mammogram, encounter for CBC AND DIFFERENTIAL Routine 02/02/2020 11:10 AM CDT Dyspnea on exertion BRAIN NATRIURETIC PEPTIDE Routine 02/02/2020 11:10 AM CDT Dyspnea on exertion BASIC METABOLIC PANEL Routine 02/02/2020 11:10 AM CDT Dyspnea on exertion NC ECG ROUTINE ECG W/LEAST 12 LDS W/I&R Routine 02/02/2020 10:31 AM CDT Essential hypertension NC ECG ROUTINE ECG W/LEAST 12 LDS W/I&R Routine 01/14/2020 10:11 AM CDT Essential hypertension URINALYSIS C&S IF NEEDED STAT 01/05/2019 8:51 PM CDT MRI BRAIN WO CONTRAST STAT 01/05/2019 8:32 PM CDT USV DUPLEX CAROTID BILATERAL STAT 01/05/2019 7:51 PM CDT Generalized weakness ED CT HEAD WO CONTRAST STAT 9 4:50 PM CDT ECG 12-LEAD STAT 01/05/2019 2:25 PM CDT XR CHEST 2 VIEW PA AND LATERAL STAT 01/05/2019 2:04 PM CDT CK STAT Add-On 01/05/2019 1:45 PM CDT CBC WITH AUTO DIFFERENTIAL STAT 01/05/2019 1:45 PM CDT TROPONIN I LEVEL (TROPONIN ADV LEVEL) STAT 01/05/2019 1:45 PM CDT COMPREHENSIVE METABOLIC PANEL STAT 01/05/2019 1:45 PM CDT CBC AND DIFFERENTIAL STAT 01/05/2019 1:45 PM CDT ED ECG WET READ STAT 01/05/2019 1: 30 PM CDT XR CHEST 1 VIEW STAT 12/31/2018 7:43 PM CDT URINALYSIS C&S IF NEEDED STAT 12/31/2018 7:02 PM CDT DRUG SCREEN URINE (DOA) Routine 12/31/2018 7:02 PM CDT URINE CULTURE Routine 12/31/2018 7:[address] HEAD WO CONTRAST STAT 9 6:20 PM CDT ECG 12-LEAD STAT 12/31/2018 5:36 PM CDT CBC WITH AUTO DIFFERENTIAL Routine 12/31/2018 5:29 PM CDT TROPONIN I LEVEL (TROPONIN ADV LEVEL) STAT Add-On 12/31/2018 5:29 PM CDT APTT STAT Add-On 12/31/2018 5:29 PM CDT PROTIME-INR STAT Add-On 12/31/2018 5:29 PM CDT CK Add-On 12/31/2018 5:29 PM CDT COMPREHENSIVE METABOLIC PANEL STAT Add-On 12/31/2018 5:29 PM CDT CKMB STAT Add-On 12/31/2018 5:29 PM CDT CBC AND DIFFERENTIAL STAT Add-On 12/31/2018 5:29 PM CDT SST Routine 12/31/2018 5:29 PM CDT PURPLE TOP TUBE Routine 12/31/2018 5:29 PM CDT BLUE TOP TUBE Routine 12/31/2018 5:29 PM CDT GREEN TUBE Routine 12/31/2018 5:29 PM CDT RAINBOWDRAW Routine 12/31/2018 5:29 PM CDT XR DEXA CENTRAL Routine 12/14/2018 11:24 AM CDT Menopause MM SCREENING MAMMOGRAM BILATERAL Routine 12/14/2018 11:15 AM CDT Breast screening NM CARDIAC PERFUSION SPECT MULTIPLE STUDIES REST AND OR STRESS Routine 10/27/2018 11:59 AM CDT Essential hypertension Dyspnea on exertion ECHO COMPLETE Routine 10/27/2018 9:47 AM CDT Essential hypertension Dyspnea on exertion NC ECG ROUTINE ECG W/LEAST 12 LDS W/I&R Routine 10/16/2018 10:40 AM CDT Essential hypertension XR DEXA CENTRAL Routine 11/18/2016 2:05 PM CDT Asymptomatic postmenopausal status (age-related) (natural) OUTSIDE FILM MAMMOGRAPHY Routine 11/14/2016 2:10 PM CDT MRI LUMBAR SPINE WO CONTRAST Routine 09/27/2016 2:51 PM CDT Vertebral syndrome OUTSIDE FILM CT CHEST Routine 01/29/2016 9:10 AM CDT OUTSIDE FILM CT CHEST Routine 08/01/2015 11:15 AM CDT BASIC METABOLIC PANEL Routine 06/30/2015 6:32 AM ASSISTANT REAL ESTATE MANAGER CBC AND DIFFERENTIAL Routine 06/30/2015 5:54 AM ASSISTANT REAL ESTATE MANAGER BASIC METABOLIC PANEL Routine 06/27/2015 8:08 AM ASSISTANT REAL ESTATE MANAGER CTA CHEST PE PROTOCOL Routine 06/27/2015 12:02 AM ASSISTANT REAL ESTATE MANAGER XR CHEST 2 VIEW PA AND LATERAL Routine 06/26/2015 10:21 PM ASSISTANT REAL ESTATE MANAGER OUTSIDE FILM MAMMOGRAPHY Routine 03/06/2015 1:55 PM ASSISTANT REAL ESTATE MANAGER XR CHEST 2 VIEW PA AND LATERAL Routine 12/16/2014 12:46 PM CDT Results * ECHO COMPLETE (02/25/2025 12:02 PM ASSISTANT REAL ESTATE MANAGER) Only the most recent of4 resultswithin the time period is included. LVIDD 5.03 cm POWERSCRIBE 360 LVIDS 3.44 cm POWERSCRIBE 360 Fractional Shortening 31.60 percent POWERSCRIBE 360 IVS 1.04 cm POWERSCRIBE 360 Posterior Wall 0.96 cm POWERSCRIBE 360 EF, Estimated 59.30 percent POWERSCRIBE 360 E/E' Ratio 12.10 POWERSCRIBE 360 MV Peak A Shayan 84.40 cm/sec POWERSCRIBE 360 MV Peak E Shayan 71.60 cm/sec POWERSCRIBE 360 E/A Ratio 0.80 ratio POWERSCRIBE 360 AV Peak Gradient 6.00 mmHg POWERSCRIBE 360 MV Valve Area P 1/2 Method 2.93 cm2 POWERSCRIBE 360 LVOT area 2.84 cm2 POWERSCRIBE 360 Heart Rate 83.0 NULL. POWERSCRIBE 360 Medial E' Velo 5.9 cm/sec POWERSCRIBE 360 Lateral E' Velo 6.5 cm/sec POWERSCRIBE 360 Anatomical Region Laterality Modality Ultrasound 02/25/2025 12:4 6 PM ASSISTANT REAL ESTATE MANAGER Narrative 02/27/2025 4:48 AM ASSISTANT REAL ESTATE MANAGER Transthoracic Echocardiographic Report Patient Name: SOBIA JOYA M Account #: : 1945 (79y 11m) Gender: F Study Date: 02-25-2025 12:46:13 PM Ht(Cm): 170 Wt(Kg): 99.34 BSA: 2.17 Trademark Attorney: Location: [facility] Provider: DHAVAL CASEY Heart Rate: 83 Quality: The study images were of technically adequate quality. Ref.Provider: DHAVAL CASEY CONCLUSIONS: 1. Normal left ventricular cavity size. Normal left ventricular systolic function. LVEF 55 - 65%. 2. Normal right ventricular size. Normal right ventricular systolic function. PROCEDURES: Echocardiographic Report: Transthoracic complete echo, 2D, spectral and tissue Doppler, color flow Doppler, M-mode. Trademark Attorney: Evie Campoverde [facility], [place] INDICATIONS: Shortness of breath. FINDINGS: Left Ventricle: Normal left ventricular cavity size. Normal left ventricular systolic function. LVEF 55 - 65%. Normal wall thickness. Right Ventricle: Normal right ventricular size. Normal right ventricular systolic function. Left Atrium: The left atrium is normal in size. Right Atrium: The right atrium is normal in size. Atrial Septum: The interatrial septum is normal in appearance. Mitral Valve: Normal mitral valve structure. No or trivial mitral valve regurgitation. No mitral valve stenosis. Aortic Valve: Normal aortic valve structure. No or trivial aortic valve regurgitation. No aortic valve stenosis. AV peak PG 6 mmHg Tricuspid Valve: Normal tricuspid valve structure. No or trivial tricuspid valve regurgitation. No tricuspid valve stenosis. The estimated right ventricular systolic pressure/PASP is <35 mmHg. Pulmonic Valve: Normal pulmonic valve structure. No or trivial pulmonic valve regurgitation. No pulmonic valve stenosis. Pericardium: Normal pericardium without evidence of pericardial effusion. Aorta: Visualized portions of the aortic root and proximal aorta appear normal in size and contour. IVC: Normal IVC size with >50% collapse with inspiration. Normal estimated RAP around 0-5 mmHg. MEASUREMENTS: 2D/MM Value Doppler Value LVIDd 2D 5.03 cm AV Peak Shayan 120.00 cm/sec LVIDs 2D 3.44 cm AV Peak PG 6.00 mmHg LV FS Teich 2D 31.60 % LVOT Diam 1.90 cm IVSd 2D 1.04 cm LVOT Area 2.84 cm2 LVPWd 2D 0.96 cm MV E Peak Shayan 71.60 cm/sec IVS/LVPW 2D 1.09 ratio MV A Peak Shayan 84.40 cm/sec LV Mass 2D 187.85 g MV E/A 0.80 ratio LV Mass Index 2D 86.57 g/m2 MV PHT 75.00 msec RWT 0.38 MVA PHT 2.93 EDV 2D 119.90 mL MV Decel Time 257.00 msec ESV 2D 48.79 mL Med E` Shayan 5.90 cm/sec EF Teich 2D 59 % Lat E` Shayan 6.48 cm/sec LA Dimension 2D 3.90 cm Med E/E` Ratio 12.14 RVDd 2d 2.42 cm Lateral E/E' 11.05 TAPSE 3.86 cm Average E/E` 11.59 AoR Diam MM 3.60 cm TR Peak Shayan 241.00 cm/sec ACS MM 1.90 cm TR Peak PG 23.00 mmHg Electronically Signed By: Dhaval Casey 2025-02-27 04:48:09 ASSISTANT REAL ESTATE MANAGER CC: CC: Procedure Note Dhaval Casey MD - 02/27/2025 Transthoracic Echocardiographic Report Patient Name: SOBIA JOYA M Account #: : 1945 (79y 11m) Gender: F Study Date: 02-25-2025 12:46:13PM Ht(Cm): 170 Wt(Kg): 99.34 BSA: 2.17 Trademark Attorney: Location: [facility] Provider: DHAVAL CASEY Heart Rate: 83 Quality: The study images were of technically adequatequality. Ref.Provider: DHAVAL CASEY CONCLUSIONS: 1. Normal left ventricular cavity size. Normal left ventricular systolicfunction. LVEF 55 - 65%. 2. Normal right ventricular size. Normal right ventricular systolicfunction. PROCEDURES: Echocardiographic Report: Transthoracic complete echo, 2D, spectral andtissue Doppler, color flow Doppler, M-mode. Trademark Attorney: Evie Campoverde [facility], [place] INDICATIONS: Shortness of breath. FINDINGS: Left Ventricle: Normal left ventricular cavity size. Normal leftventricular systolic function. LVEF 55 - 65%. Normal wall thickness. Right Ventricle: Normal right ventricular size. Normal right ventricularsystolic function. Left Atrium: The left atrium is normal in size. Right Atrium: The right atrium is normal in size. Atrial Septum: The interatrial septum is normal in appearance. Mitral Valve: Normal mitral valve structure. No or trivial mitral valveregurgitation. No mitral valve stenosis. Aortic Valve: Normal aortic valve structure. No or trivial aortic valveregurgitation. No aortic valve stenosis. AV peak PG 6 mmHg Tricuspid Valve: Normal tricuspid valve structure. No or trivial tricuspidvalve regurgitation. No tricuspid valve stenosis. The estimated rightventricular systolic pressure/PASP is <35 mmHg. Pulmonic Valve: Normal pulmonic valve structure. No or trivial pulmonicvalve regurgitation. No pulmonic valve stenosis. Pericardium: Normal pericardium without evidence of pericardialeffusion. Aorta: Visualized portions of the aortic root and proximal aorta appearnormal in size and contour. IVC: Normal IVC size with >50% collapse with inspiration. Normal estimatedRAP around 0-5 mmHg. MEASUREMENTS: 2D/MM Value Doppler Value LVIDd 2D 5.03 cm AV Peak Shayan 120.00 cm/sec LVIDs 2D 3.44 cm AV Peak PG 6.00 mmHg LV FS Teich 2D 31.60 % LVOT Diam 1.90 cm IVSd 2D 1.04 cm LVOT Area 2.84 cm2 LVPWd 2D 0.96 cm MV E Peak Shayan 71.60 cm/sec IVS/LVPW 2D 1.09 ratio MV A Peak Shayan 84.40 cm/sec LV Mass 2D 187.85 g MV E/A 0.80 ratio LV Mass Index 2D 86.57 g/m2 MV PHT 75.00 msec RWT 0.38 MVA PHT 2.93 EDV 2D 119.90 mL MV Decel Time 257.00 msec ESV 2D 48.79 mL Med E` Shayan 5.90 cm/sec EF Teich 2D 59 % Lat E` Shayan 6.48 cm/sec LA Dimension 2D 3.90 cm Med E/E` Ratio 12.14 RVDd 2d 2.42 cm Lateral E/E' 11.05 TAPSE 3.86 cm Average E/E` 11.59 AoR Diam MM 3.60 cm TR Peak Shayan 241.00 cm/sec ACS MM 1.90 cm TR Peak PG 23.00 mmHg Electronically Signed By: Dhaval Casey 2025-02-27 04:48:09 ASSISTANT REAL ESTATE MANAGER CC: CC: us Dhaval Casey MD CV ECHO ORDERABLES Final Res ult * NM Cardiac Perfusion SPECT Multiple Studies at Rest and/or Stress (02/11/2025 12:28 PM CDT) Only the most recent of3 resultswithin the time period is included. Anatomical Region Laterality Modality Chest Nuclear Medicine us Dhaval Casey MD IMG NM ORDERABLES Final Resu lt * ZIO PATCH (01/14/2025 4:05 PM CDT) BSA 2.2 m2 Height (inches) 67.008 in Weight (ounces) 3,616 oz Blood Pressure 96/66 mmHg Narrative Dhaval Casey MD - 03/10/2025 1:05 PM ASSISTANT REAL ESTATE MANAGER - 7 days were monitored. Is a fair quality study. The predominant rhythm was a normal sinus rhythm with an average heart rate of 62 bpm. Low heart rate was 39 bpm with a peak heart rate of 160 bpm. There was less than 1% PVC burden. Approximate 2% PAC burden. 2 with 3 brief 8-12 beat episodes of atrial tach. No other arrhythmias were noted Dhaval Casey MD CV CARDIAC SERVICES ORDERABL ES Final Result * ECG 12 lead (Clinic-Performed ONLY) (01/14/2025 3:20 PM CDT) Only the most recent of10 resultswithin the time period is included. 01/14/2025 3:20 PM CDT Narrative [facility] - 01/23/2025 8:55 PM CDT [facility] Test Date: 01/14/2025 3:20 PM Pat Name: SOBIA JOYA Department: [facility] Room: Gender: Female Vrt Mechanic: : 1945 Requested By: DHAVAL Hanson Order Number: [id number] Reading MD: Dhaval Casey Interpretive Statements Normal sinus rhythm Compared to ECG 08/26/2024 15:33:35 Sinus bradycardia no longer present Prolonged QT interval no longer present Electronically Signed On 01-23-2025 20:55:31 CDT by Dhaval Casey Procedure Note Dhaval Casey MD - 01/23/2025 [facility] Test Date: 01/14/2025 3:20 PM Pat Name: [facility] Department: [facility] Room: Gender: Female Vrt Mechanic: : 1945 Requested By: DHAVAL Hanson Order Number: [id number] Reading MD: Dhaval Casey Interpretive Statements Normal sinus rhythm Compared to ECG 08/26/2024 15:33:35 Sinus bradycardia no longer present Prolonged QT interval no longer present Electronically Signed On 01-23-2025 20:55:31 CDT by Dhaval Casey Dhaval Casey MD ECG ORDERABLES Final Result [facility] * XR Chest 1 View (08/26/2024 3:54 PM CDT) Only the most recent of3 resultswithin the time period is included. Anatomical Region Laterality Modality Chest N/A Digital Radiogra phy Impressions 08/26/2024 4:00 PM CDT Negative study. Narrative 08/26/2024 4:00 PM CDT XR CHEST 1 VIEW CLINICAL HISTORY: shortness of breath FINDINGS: Single view was performed. The lungs are clear. The heart size and pulmonary vasculature appear normal. Mild aortic calcifications are again seen. Procedure Note Ricardo Jean MD - 08/26/2024 XR CHEST 1 VIEW CLINICAL HISTORY: shortness of breath FINDINGS: Single view was performed. The lungs are clear. The heart sizeand pulmonary vasculature appear normal. Mild aortic calcifications areagain seen. IMPRESSION: Negative study. Laurel Parikh NP IMG DIAGNOSTIC IMAGING ORDERABL ES Final Result * Denise 2 Flu + SARS Antigen RAFAEL -Use Dry Swab (08/26/2024 3:40 PM CDT) Only the most recent of2 resultswithin the time period is included. [facility] Influenza A Antigen Negative Negative 08/26/2024 4:11 PM CDT [facility] Influenza B Antigen Negative Negative 08/26/2024 4:11 PM CDT [facility] SARS Antigen Negative Negative 08/26/2024 4:11 PM CDT [facility] Comment: To increase the chance that the negative result for COVID-19 is accurate, you should: * Test again in 48 hours if the individual has symptoms on the first day of testing. * Test 2 more times at least 48 hours apart if the individual does not have symptoms on the first day of testing. Nasopharyngeal Swab NASOPHARYNGEAL / Unknown Collection / Unknown 08/26/2024 3:40 PM CDT 08/26/2024 3:46 PM CDT Narrative [facility] - 08/26/2024 4:11 PM CDT 1. The Denise 2 Flu + SARS Antigen RAFAEL employs immunofluorescence technology in a sandwich design that is intended for the simultaneous qualitative detection and differentiation of the nucleocapsid protein antigens from SARS-CoV-2, influenza A and influenza B in direct nasopharyngeal and nasal swab specimens from individuals suspected of respiratory viral infection consistent with COVID-19 within the first five days of the onset of symptoms. 2. The Denise 2 Flu + SARS Antigen RAFAEL does not differentiate between SARS-CoV and SARS-CoV-2 and is not intended to detect influenza C antigens. 3. Positive results indicate the presence of viral antigens, but clinical correlation with patient history and other diagnostic information is necessary to determine infection status. Positive results do not rule out bacterial infection or co-infection with other viruses. 4. Negative SARS-CoV-2 results, from patients with symptom onset beyond five days, should be treated as presumptive and confirmation with a molecular assay, if necessary, for patient management, may be performed. Negative results do not rule out COVID-19 and should not be used as the sole basis for treatment or patient management decisions, including infection control decisions. Negative results should be considered in the context of the patient's recent exposures, history and the presence of clinical signs and symptoms consistent with COVID-19. A negative test is presumptive for influenza A and B and it is recommended these results be confirmed by an FDA-cleared influenza A and B molecular assay. Negative results do not preclude influenza virus infections and should not be used as the sole basis for treatment or other patient management decisions. 5. The Denise 2 Flu + SARS Antigen RAFAEL test is only for use under the Food and Drug Administration's Emergency Use Authorization. Laurel Parikh NP BODY FLUIDS AND STOOLS ORDERABL ES Final Result [facility] [address] [place] [id number] [phone] * (ABNORMAL) CBC auto differential (08/26/2024 3:40 PM CDT) Only the most recent of6 resultswithin the time period is included. [facility] White Blood Cell Count 7.6 4.0 - 11.0 1000/uL 08/26/2024 3:49 PM T [facility] Red Blood Cell Count 4.52 3.80 - 5.30 mill/uL 08/26/2024 3:49 PM CDT [facility] Hemoglobin 12.5 12.0 - 16.0 g/dL 08/26/2024 3:49 PM CDT [facility] Hematocrit 40.9 37.0 - 47.0 % 08/26/2024 3:49 PM CDT [facility] Mean Corpuscular Volume 91 80 - 100 fL 08/26/2024 3:49 PM T [facility] Mean Corpuscular Hemoglobin Conc 30.6(L) 31.0 - 37.0 g/dL 08/26/2024 3:49 PM T [facility] Red Cell Distribution Width 14.1 12.1 - 14.9 % 08/26/2024 3:49 PM T [facility] Platelet Count 268 150 - 375 K/uL 08/26/2024 3:49 PM T [facility] Mean Platelet Volume 10.7 6.5 - 12.0 fL 08/26/2024 3:49 PM CDT [facility] Neutrophils % 63 44 - 81 % 08/26/2024 3:49 PM CDT [facility] Lymphocytes % 19(L) 21 - 47 % 08/26/2024 3:49 PM T [facility] Monocytes % 9 2 - 11 % 08/26/2024 3:49 PM CDT [facility] Eosinophils % 7 0 - 7 % 08/26/2024 3:49 PM CDT [facility] Basophils % 1 0 - 1 % 08/26/2024 3:49 PM CDT [facility] Immature Granulocytes 0.3 0.0 - 0.6 % 08/26/2024 3:49 PM CDT [facility] Neutrophils Abs 4.8 1.5 - 10.0 1000/UL 08/26/2024 3:49 PM CDT [facility] Lymphocytes Abs 1.5 1.3 - 2.9 1000/ul 08/26/2024 3:49 PM CDT [facility] Monocytes Abs 0.7 0.1 - 1.0 1000/ul 08/26/2024 3:49 PM CDT [facility] Eosinophils Abs 0.5 0.0 - 0.7 1000/UL 08/26/2024 3:49 PM CDT [facility] Basophils Abs 0.1 0.0 - 0.1 1000/UL 08/26/2024 3:49 PM CDT [facility] Immature Grans (Abs) <0.03 0.00 - 0.09 1000/ul 08/26/2024 3:49 PM CDT [facility] Blood VENOUS STRUCTURE / Unknown Venipuncture / Unknown 08/26/2024 3:40 PM CDT 08/26/2024 3:46 PM CDT Laurel Parikh [employer]ASS UNLOADING EQUIPMENT TENDER LAB BLOOD ORDERABLES Final Resu lt Performing Organization Address City/[facility]/ZIP Co de Phone Number [facility] [address] [phone] * Troponin Adv Level (08/26/2024 3:40 PM CDT) Only the most recent of3 resultswithin the time period is included. Pathologist [facility] [place] Troponin I Level <0.01 <0.01 - 0.03 ng/mL 08/26/2024 4:07 PM CDT [facility] Blood VENOUS STRUCTURE / Unknown Venipuncture / Unknown 08/26/2024 3:40 PM CDT 08/26/2024 3:46 PM CDT Laurel Parikh LAB BLOOD ORDERABLES Final Resu lt Performing Organization Address City/[facility]/ZIP Co de Phone Number [facility] [address] [phone] * Brain natriuretic peptide (08/26/2024 3:40 PM CDT) Only the most recent of3 resultswithin the time period is included. BNP(Brain Natriuretic Peptide) 125 15 - 266 PG/ML 08/26/2024 4:10 PM CDT [facility] Comment:Slight hemolysis pre sent, interpret results with caution Blood VENOUS STRUCTURE / Unknown Venipuncture / Unknown 08/26/2024 3:40 PM CDT 08/26/2024 3:46 PM CDT Laurel Parikh NP LAB BLOOD ORDERABLES Final Resu lt [facility] [address] [place] [address], [facility] [phone] * (ABNORMAL) Comprehensive metabolic panel (08/26/2024 3:40 PM CDT) Only the most recent of4 resultswithin the time period is included. Creatinine Level 1.08(H) 0.55 - 1.02 mg/dL 08/26/2024 4:05 PM T [facility] Blood Urea Nitrogen Level 14 5 - 25 mg/dL 08/26/2024 4:05 PM [facility] Sodium Level 141 136 - 145 mmol/L 08/26/2024 4:05 PM [facility] Potassium Level 4.8 3.5 - 5.1 mmol/L 08/26/2024 4:05 PM T [facility] Comment:Slight hemolysis pre sent, interpret results with caution Chloride Level 106 100 - 109 mmol/L 08/26/2024 4:05 PM T [facility] CO2 Level 22 22 - 33 mmol/L 08/26/2024 4:05 PM T [facility] Glucose Level 111(H) 70 - 100 mg/dL 08/26/2024 4:05 PM T [facility] Calcium Level 9.3 8.8 - 10.6 mg/dL 08/26/2024 4:05 PM T [facility] Protein Total 6.9 6.0 - 8.3 g/dL 08/26/2024 4:05 PM [facility] Comment:Slight hemolysis pre sent, interpret results with caution Albumin Level 3.8 3.5 - 5.0 g/dl 08/26/2024 4:05 PM T [facility] Comment:Slight hemolysis pre sent, interpret results with caution Bilirubin Total 0.6 0.2 - 1.2 mg/dL 08/26/2024 4:05 PM CDT [facility] Alkaline Phosphatase Level 87 40 - 150 U/L 08/26/2024 4:05 PM CDT [facility] Comment:Slight hemolysis pre sent, interpret results with caution SGOT (AST) 22 10 - 58 U/L 08/26/2024 4:05 PM CDT [facility] Comment:Slight hemolysis pre sent, interpret results with caution SGPT (ALT) 17 5 - 50 U/L 08/26/2024 4:05 PM CDT [facility] Comment:Slight hemolysis pre sent, interpret results with caution Anion Gap 13 5 - 13 mmol/L 08/26/2024 4:05 PM T [facility] EGFR 52 mL/min/1. 73mSq 08/26/2024 4:05 PM CDT [facility] Comment: In accordance with NKF-ASN Task Force recommendation, calculation based on the Chronic Kidney Disease Epidemiology Collaboration (CKD-EPI) equation without adjustment for race. eGFR adjusted for gender and age and calculated in ml/min/1.73mSquared. eGFR cannot be calculated if patient is under 18 years of age. Reference Range: >= 60 ml/min/1.73mSquared. Blood VENOUS STRUCTURE / Unknown Venipuncture / Unknown 08/26/2024 3:40 PM CDT 08/26/2024 3:46 PM CDT Narrative [facility] - 08/26/2024 4:05 PM CDT The creatinine result was obtained using the more sensitive and specific enzymatic method in comparison to the former Myles methodology. The enzymatic creatinine method is sensitive and specific for creatinine and is not affected by endogenous substances, such as ketoacids, cephalosporins, and bilirubin that interfere with the Myles method. us Laurel Parikh NP LAB BLOOD ORDERABLES Final Resu lt [place] Flores OmarAna Romero. MARIAJOSE Bauer [address], [facility] [phone] * ECG 12 lead (08/26/2024 3:33 PM CDT) Only the most recent of4 resultswithin the time period is included. 08/26/2024 3:33 PM CDT Narrative [facility] - 08/26/2024 11:19 PM CDT [facility] ED Test Date: 08/26/2024 3:33 PM Pat Name: SOBIA JOYA Department: [facility] Room: [place] [address] Gender: Female Vrt Mechanic: WILLIS : 1945 Requested By: LAUREL PARIKH Order Number: [id number] Reading MD: Faizan Corral Interpretive Statements Sinus bradycardia Prolonged QT Compared to ECG 01/09/2024 13:14:20 Prolonged QT interval now present Atrial premature complex(es) no longer present Electronically Signed On 08-26-2024 23:19:50 CDT by Faizan Corral us Laurel Parikh [employer]ASS UNLOADING EQUIPMENT TENDER ECG ORDERABLES Final Result NOLAN * XR Hip 2 or 3 View Right W or WO Pelvis (03/02/2024 11:48 AM ASSISTANT REAL ESTATE MANAGER) Anatomical Region Laterality Modality Hip Right Digital Radiogra phy Impressions 03/02/2024 11:50 AM ASSISTANT REAL ESTATE MANAGER Moderate bilateral hip degenerative changes. Narrative 03/02/2024 11:50 AM ASSISTANT REAL ESTATE MANAGER Exam: XR HIP 2 OR 3 VIEW RIGHT W OR WO PELVIS CLINICAL INDICATION: hip pain FINDINGS: The femoral heads are well-seated in the acetabula. No acute fracture. Moderate degenerative changes of the hips bilaterally. Soft tissues are normal. Procedure Note Randa Adrian MD - 03/02/2024 Exam: XR HIP 2 OR 3 VIEW RIGHT W OR WO PELVIS CLINICAL INDICATION: hip pain FINDINGS: The femoral heads are well-seated in the acetabula. No acute fracture.Moderate degenerative changes of the hips bilaterally. Soft tissues arenormal. IMPRESSION: Moderate bilateral hip degenerative changes. us Kandi LING IMG DIAGNOSTIC IMAGING ORDERA BLES Final Result * XR Fluoro Procedure Guidance up to 1 hour (04/18/2023 12:47 PM ASSISTANT REAL ESTATE MANAGER) Narrative Ismael Rodriges - 04/18/2023 12:48 PM ASSISTANT REAL ESTATE MANAGER Please see the operative report for further details. Nohemy LeeMikeCarlos DO IMG FLUOROSCOPY ORDERABLE S Final Result * CT Chest without Contrast (04/18/2023 8:46 AM ASSISTANT REAL ESTATE MANAGER) Anatomical Region Laterality Modality Chest Computed Tomogra phy Impressions 04/18/2023 3:26 PM ASSISTANT REAL ESTATE MANAGER 1. Persistent suspicious right upper lobe nodule. 2. Partially improved left upper and left lower lobe infiltrates. Narrative 04/18/2023 3:26 [address] REAL ESTATE MANAGER CT CHEST WO CONTRAST CLINICAL INDICATION: Lung nodule, > 8mm R91.1:Solitary pulmonary nodule COMPARISON: 02/18/2023 TECHNIQUE: CT scan of the chest was performed without IV contrast. Automated exposure control was utilized for dose reduction. FINDINGS: Persistent right upper lobe nodule measured as 1.1 x 0.8 cm. Partially improved ill-defined nodular airspace opacities in the left upper lobe and left lower lobe. No pleural or pericardial effusion. No evidence of hilar or mediastinal adenopathy. Procedure Note Jerson Mccall MD - 04/18/2023 CT CHEST WO CONTRAST CLINICAL INDICATION: Lung nodule, > 8mm R91.1:Solitary pulmonary nodule COMPARISON: 02/18/2023 TECHNIQUE: CT scan of the chest was performed without IV contrast.Automated exposure control was utilized for dose reduction. FINDINGS: Persistent right upper lobe nodule measured as 1.1 x 0.8 cm.Partially improved ill-defined nodular airspace opacities in the leftupper lobe and left lower lobe. No pleural or pericardial effusion. Noevidence of hilar or mediastinal adenopathy. IMPRESSION: 1. Persistent suspicious right upper lobe nodule. 2. Partially improved left upper and left lower lobe infiltrates. Corinna Nicolas GLASS UNLOADING EQUIPMENT TENDER IMG CT ORDERABLES Final Re sult * Cytology Request (04/18/2023 12:00 AM ASSISTANT REAL ESTATE MANAGER) 04/18/2023 Narrative PATHOLOGY GROUP [facility] - 04/24/2023 11:19 AM ASSISTANT REAL ESTATE MANAGER SEE DETAILS Clinical Data: Right upper lobe nodule FINAL PATHOLOGIC DIAGNOSIS 1. Right lung, upper lobe nodule, fine needle aspiration (ThinPrep, cell block, 4 smears): - Negative for malignant cells. - Blood, a rare pneumocyte, a few inflammatory cells, benign squamous cell, see Comment. Comment: The material is scant. 2. Right lung, upper lobe nodule, biopsy: - Negative for malignancy. - Necrotic/degenerative material with a rim of lymphohistiocytic inflammation, see Comment. - Multiple levels examined. - Cytokeratin cocktail A and TTF-1 highlight a few degenerated epithelial cells; otherwise highlight benign alveolar tissue. Comment: There is no definitive evidence of malignancy or neoplasia. Necrosis/degenerative material is present. A hyalinized granuloma/inflammatory process is a possibility. AFB, Dante and GMS special stains performed on tissue block 2A are negative for definitive pathogenic microorganisms. Clinical and radiographic correlation is essential. 3. 11R, fine needle aspiration (ThinPrep and cell block): - Negative for malignant cells. - Lymph node sampling. 4. Station 7, fine needle aspiration (ThinPrep and cell block): - Negative for malignant cells. - Lymph node sampling. 5. 11L, fine needle aspiration (ThinPrep and cell block): - Negative for malignant cells. - Lymph node sampling. 6. 4L, fine needle aspiration (ThinPrep and cell block): - Negative for malignant cells. - Lymph node sampling. [facility]/pradeep Dias M.D. PGL Pathologist, Electronic Signature SPECIMEN(S) SUBMITTED: GROSS DESCRIPTION 1. FNA, right upper lobe nodule: Received in CytoLyt labeled Sobia Joya, 1945, RUL nodule FNA is approximately 10 ml of a hazy, colorless fluid; submitted for cytologic examination. Also received in an unlabeled slide folder are two Passes: Submitted for cytologic examination. Pass 1: 2 H&E-stained smears labeled Sobia Joya, 1945, RUL nodule FNA Pass 2: 2 H&E-stained smears labeled Sobia Joya, 1945, RUL nodule FNA Preparation hdez: One ThinPrep, one cell block, four H&E-stained direct smears. CD/anusha 2. Right upper lobe nodule biopsy: Received in formalin labeled right upper lobe nodule biopsy are multiple core fragments aggregating to 1 cm; bagged; entirely submitted in one cassette. MM/cbt Received in an unlabeled slide folder are four H&E-stained touch preps labeled Sobia Joya, 1945, RUL nodule touch prep submitted for cytologic examination. Preparation hdez: Four H&E-stained touch preps. CD/anusha 3. FNA, 11 R: Received in CytoLyt labeled Sobia Joya, 1945, 11R FNA is approximately 7.5 ml of a hazy, red fluid; submitted for cytologic examination. Preparation hdez: One ThinPrep, one cell block. CD/anusha 4. FNA, station 7: Received in CytoLyt labeled Sobia Joya, 1945, station 7 FNA is approximately 10 ml of a hazy, red fluid; submitted for cytologic examination. Preparation hdez: One ThinPrep, one cell block. CD/anusha 5. FNA, 11 L: Received in CytoLyt labeled Sobia Joya, 1945, 11L FNA is approximately 5 ml of a hazy, red fluid; submitted for cytologic examination. Preparation hdez: One ThinPrep, one cell block. CD/anusha 6. FNA, 4 L: Received in CytoLyt labeled Sobia Joya, 1945, 4L FNA is approximately 7.5 ml of a hazy, red fluid; submitted for cytologic examination. Preparation hdez: One ThinPrep, one cell block. CD/anusha INTRAOPERATIVE CONSULT DIAGNOSIS: 1. Rapid FNA Assessment: Bloody fluid, no malignant cells identified. [Interpreted by Kelsie Cross M.D. at [facility], [address] [place] [address]] 2. Scrape/Touch Prep Diagnosis: No malignant cells identified. [Interpreted by Kelsie Cross M.D. at [facility], [address] [place] [address]] CPT CODE(S): ICD-9/10 CODE(S) FACILITY: 01806-MF, [address] x5, [R911] [facility] [address] x6, [address] x3, [facility] [id number], [address], [address] Interpretation by Pathology Group [facility] [address] [facility], [place] [address] us Nohemy Moses DO PATHOLOGY/CYTOLOGY ORDERA BLES Final Result [facility] GROUP [facility] [address] [place] [address], [facility] [phone] * (ABNORMAL) Renal function panel (02/21/2023 3:24 AM CDT) Creatinine Level 1.18 0.57 - 1.25 mg/dL 02/21/2023 4:55 AM CDT [facility] Blood Urea Nitrogen Level 21 5 - 25 mg/dL 02/21/2023 4:55 AM CDT [facility] Calcium Level 8.5(L) 8.8 - 10.6 mg/dL 02/21/2023 4:55 AM CDT [facility] Glucose Level 97 70 - 100 mg/dL 02/21/2023 4:55 AM CDT [facility] Sodium Level 137 136 - 145 mmol/L 02/21/2023 4:55 AM CDT [facility] Potassium Level 4.3 3.5 - 5.1 mmol/L 02/21/2023 4:55 AM CDT [facility] Chloride Level 104 100 - 109 mmol/L 02/21/2023 4:55 AM CDT [facility] CO2 Level 23 22 - 33 mmol/L 02/21/2023 4:55 AM CDT [facility] Albumin Level 3.0(L) 3.5 - 5.0 g/dl 02/21/2023 4:55 AM CDT [facility] Phosphorus Level 4.2 2.3 - 4.7 MG/DL 02/21/2023 4:55 AM CDT [facility] Anion Gap 10 8 - 16 mmol/L 02/21/2023 4:55 AM CDT [facility] EGFR 48 mL/min/1.7 3mSq 02/21/2023 4:55 AM CDT [facility] Comment: In accordance with NKF-ASN Task Force recommendation, calculation based on the Chronic Kidney Disease Epidemiology Collaboration (CKD-EPI) equation without adjustment for race. eGFR adjusted for gender and age and calculated in ml/min/1.73mSquared. eGFR cannot be calculated if patient is under 18 years of age. Reference Range: >= 60 ml/min/1.73mSquared. Blood VENOUS STRUCTURE / Unknown Venipuncture / Unknown 02/21/2023 3:24 AM CDT 02/21/2023 4:03 AM CDT us Archie Hidalgo MD LAB BLOOD ORDERABLES Final R esult [facility] [address] [phone] * CT Angiogram Chest (02/18/2023 3:53 PM CDT) Anatomical Region Laterality Modality Chest Computed Tomogra phy Narrative 02/18/2023 3:58 PM CDT Examination: CT Pulmonary Angiogram Clinical data: Pulmonary embolism (PE) suspected, unknown D-dimer, dyspnea, recent knee surgery Comparison: None Technique: Using helical technique, CT data from the thoracic inlet through the upper abdomen was obtained during rapid IV contrast infusion using 50cc of Omnipaque 350. The examination was timed to the pulmonary arterial system to generate a CT angiographic study. 3D images were generated at an independent work station. Dose reduction techniques included automated exposure control. Findings: Vascular: The study is diagnostic to the level of the subsegmental pulmonary arteries. Pulmonary arteries: No evidence of acute or chronic pulmonary embolism. Thoracic aorta: Normal in size. Pulmonary veins: Normal Coronary arteries: Normal Systemic veins: Normal Chest: Lungs/Pleura:Left lower lobe consolidation. Centrilobular emphysema. Right upper lobe solitary pulmonary nodule measures 12 mm. No pleural effusion or focal pleural lesion. Axilla/Soft Tissue: No supraclavicular or axillary adenopathy. Regional soft tissues are within normal limits. Mediastinum:Visualized thyroid is normal. Left hilar adenopathy. Left para-aortic adenopathy.Small hiatal hernia. Trachea and proximal bronchi are normal. Heart: The heart is normal in size. No pericardial effusion. RV/LV ratio: Normal Upper abdomen: Cholecystectomy. Bones: Within normal limits Impression: Vascular: 1. No evidence of pulmonary artery embolism to the subsegmental level. Chest: 1. Left lower lobe bronchopneumonia. 2. Solid pulmonary nodule in the right upper lobe measures 12 mm. Consider PET/CT for further evaluation Procedure Note Randa Adrian MD - 02/18/2023 Examination: CT Pulmonary Angiogram Clinical data: Pulmonary embolism (PE) suspected, unknown D-dimer,dyspnea, recent knee surgery Comparison: None Technique: Using helical technique, CT data from the thoracic inletthrough the upper abdomen was obtained during rapid IV contrast infusionusing 50cc of Omnipaque 350. The examination was timed to the pulmonaryarterial system to generate a CT angiographic study. 3D images weregenerated at an independent work station. Dose reduction techniquesincluded automated exposure control. Findings: Vascular: The study is diagnostic to the level of the subsegmental pulmonaryarteries. Pulmonary arteries: No evidence of acute or chronic pulmonary embolism. Thoracic aorta: Normal in size. Pulmonary veins: Normal Coronary arteries: Normal Systemic veins: Normal Chest: Lungs/Pleura:Left lower lobe consolidation. Centrilobular emphysema. Rightupper lobe solitary pulmonary nodule measures 12 mm. No pleural effusionor focal pleural lesion. Axilla/Soft Tissue: No supraclavicular or axillary adenopathy. Regionalsoft tissues are within normal limits. Mediastinum:Visualized thyroid is normal. Left hilar adenopathy. Leftpara-aortic adenopathy.Small hiatal hernia. Trachea and proximal bronchiare normal. Heart: The heart is normal in size. No pericardial effusion. RV/LV ratio: Normal Upper abdomen: Cholecystectomy. Bones: Within normal limits Impression: Vascular: 1. No evidence of pulmonary artery embolism to the subsegmental level. Chest: 1. Left lower lobe bronchopneumonia. 2. Solid pulmonary nodule in the right upper lobe measures 12 mm. ConsiderPET/CT for further evaluation us Kristen Pimentel MD IM CT ORDERABLES Final Result * USV Venous Lower Bilateral Legs Complete (02/18/2023 1:49 PM CDT) Anatomical Region Laterality Modality Ultrasound 02/18/2023 5:04 PM CDT Narrative 02/18/2023 5:04 PM CDT Right: A duplex ultrasound of the lower extremity deep venous system demonstrates compressible vessels with no intraluminal echoes seen. Doppler flow demonstrates spontaneous flow with good augmentation and normal phasicity. Left: A duplex ultrasound of the lower extremity deep venous system demonstrates compressible vessels with no intraluminal echoes seen. Doppler flow demonstrates spontaneous flow with good augmentation and normal phasicity. Conclusions: No evidence of deep venous thrombosis. Recommendations: Follow clinically. Procedure Note Cachorro Durand MD - 02/18/2023 Right: A duplex ultrasound of the lower extremity deep venous systemdemonstrates compressible vessels with no intraluminal echoes seen.Doppler flow demonstrates spontaneous flow with good augmentation andnormal phasicity. Left: A duplex ultrasound of the lower extremity deep venous systemdemonstrates compressible vessels with no intraluminal echoes seen.Doppler flow demonstrates spontaneous flow with good augmentation andnormal phasicity. Conclusions: No evidence of deep venous thrombosis. Recommendations: Follow clinically. us Kristen Pimentel MD CV VASCULAR ORDERABLES Final Res ult * CT Abdomen Pelvis with IV Contrast Only (02/16/2023 8:39 PM CDT) Anatomical Region Laterality Modality Abdomen, Pelvis Computed Tomogra phy Narrative 02/16/2023 9:[address] ABDOMEN PELVIS W IV CONTRAST Indication: constipation Comparison:none Scans through the abdomen and pelvis were performed with IV contrast. Automated exposure technique was utilized for dose reduction. Findings: Patchy opacification is seen within the left lower lobe. Status post gastric surgery with a small hiatal hernia.. Abdomen: No free air or free fluid. Diffuse diverticulosis is seen throughout the left colon. There is some wall thickening and mild stranding of the fat around the distal descending colon and proximal sigmoid colon. No large amount of stool seen throughout the entire length of the colon. Solid organs are within normal limits. Cholecystectomy. No masses, fluid collections or adenopathy. The vascular structures are patent. No destructive bone lesion. Pelvis: No free air or free fluid. No significant rectal stool burden. No urinary bladder wall thickening. Distal ureters are nondilated. No masses, fluid collections or adenopathy. The vascular structures are patent. No destructive bone lesion. Impression: 1. Diffuse left-sided colonic diverticulosis with some subtle fat stranding and wall thickening raising the suspicion for acute diverticulitis, correlate clinically. Otherwise large amount stool throughout the colon consistent with constipation 2. Nonspecific left lower lobe airspace disease could be chronic atelectasis or scarring, but correlate for any signs of pneumonia or evidence suggesting aspiration. Procedure Note Rancho Francisco MD - 02/16/2023 CT ABDOMEN PELVIS W IV CONTRAST Indication: constipation Comparison:none Scans through the abdomen and pelvis were performed with IV contrast.Automated exposure technique was utilized for dose reduction. Findings: Patchy opacification is seen within the left lower lobe. Status postgastric surgery with a small hiatal hernia.. Abdomen: No free air or free fluid. Diffuse diverticulosis is seenthroughout the left colon. There is some wall thickening and mildstranding of the fat around the distal descending colon and proximalsigmoid colon. No large amount of stool seen throughout the entire lengthof the colon. Solid organs are within normal limits. Cholecystectomy. Nomasses, fluid collections or adenopathy. The vascular structures arepatent. No destructive bone lesion. Pelvis: No free air or free fluid. No significant rectal stool burden. Nourinary bladder wall thickening. Distal ureters are nondilated. Nomasses, fluid collections or adenopathy. The vascular structures arepatent. No destructive bone lesion. Impression: 1. Diffuse left-sided colonic diverticulosis with some subtle fatstranding and wall thickening raising the suspicion for acutediverticulitis, correlate clinically. Otherwise large amount stoolthroughout the colon consistent with constipation 2. Nonspecific left lower lobe airspace disease could be chronicatelectasis or scarring, but correlate for any signs of pneumonia orevidence suggesting aspiration. us Bridget Khan MD IMG CT ORDERABLES Final Result * XR Abdomen Acute Series with PA Chest (02/16/2023 5:51 PM CDT) Anatomical Region Laterality Modality Abdomen N/A Digital Radiogra phy Impressions 02/16/2023 6:16 PM CDT Negative flat and erect abdominal series. Narrative 02/16/2023 6:16 PM CDT XR ABDOMEN ACUTE SERIES W PA CHEST CLINICAL INDICATION: constipation COMPARISON: None. FINDINGS: Flat and erect views of the abdomen and frontal view of the chest were performed. The lungs are symmetrically aerated with no free air seen beneath diaphragm. The bowel gas pattern is nonobstructive. No abnormal soft tissue calcifications are identified. Procedure Note Ankit Weinberg MD - 02/16/2023 XR ABDOMEN ACUTE SERIES W PA CHEST CLINICAL INDICATION: constipation COMPARISON: None. FINDINGS: Flat and erect views of the abdomen and frontal view of thechest were performed. The lungs are symmetrically aerated with no free airseen beneath diaphragm. The bowel gas pattern is nonobstructive. Noabnormal soft tissue calcifications are identified. IMPRESSION: Negative flat and erect abdominal series. us Mariposa LING IMG DIAGNOSTIC IMAGING [facility] Final Result * Lipase (02/16/2023 5:51 PM CDT) Lipase Level 9 8 - 78 U/L 02/16/2023 6:24 PM CDT [facility] Blood VENOUS STRUCTURE / Unknown Venipuncture / Unknown 02/16/2023 5:51 PM CDT 02/16/2023 5:54 PM CDT us Bridget Khan MD LAB BLOOD ORDERABLES Final Res ult [facility] [address] [place] [address], [facility] [phone] * (ABNORMAL) CBC without Differential (02/05/2023 6:25 AM CDT) White Blood Cell Count 11.7(H) 4.0 - 11.0 1000/uL 02/05/2023 9:42 AM CDT [facility] Red Blood Cell Count 3.49(L) 3.80 - 5.30 mill/uL 02/05/2023 9:42 AM CDT [facility] Hemoglobin 10.1(L) 12.0 - 16.0 g/dL 02/05/2023 9:42 AM CDT [facility] Mean Corpuscular Volume 95 80 - 100 fL 02/05/2023 9:42 AM CDT [facility] Mean Corpuscular Hemoglobin Conc 30.5(L) 31.0 - 37.0 g/dL 02/05/2023 9:42 AM CDT [facility] Red Cell Distribution Width 13.5 12.1 - 14.9 % 02/05/2023 9:42 AM CDT [facility] Hematocrit 33.1(L) 37.0 - 47.0 % 02/05/2023 9:42 AM CDT [facility] Platelet Count 210 150 - 375 K/uL 02/05/2023 9:42 AM CDT [facility] Mean Platelet Volume 11.7 6.5 - 12.0 fL 02/05/2023 9:42 AM CDT [facility] nRBC 0.0 0.0 - 0.0 /100 WBCs 02/05/2023 9:42 AM CDT [facility] NRBC Absolute <0.01 <=0.11 1000/ul 02/05/2023 9:42 AM CDT [facility] Blood VENOUS STRUCTURE / Unknown Venipuncture / Unknown 02/05/2023 6:25 AM CDT 02/05/2023 9:27 AM CDT us Davis Lopez MD LAB BLOOD ORDERABLES Final Res ult [facility] [address] [place] [address], [facility] [phone] * (ABNORMAL) Basic metabolic panel (02/05/2023 6:25 AM CDT) Only the most recent of7 resultswithin the time period is included. Creatinine Level 1.06 0.57 - 1.25 mg/dL 02/05/2023 9:39 AM CDT [facility] Blood Urea Nitrogen Level 15 5 - 25 mg/dL 02/05/2023 9:39 AM CDT [facility] Sodium Level 137 136 - 145 mmol/L 02/05/2023 9:39 AM CDT [facility] Potassium Level 5.1 3.5 - 5.1 mmol/L 02/05/2023 9:39 AM CDT [facility] Chloride Level 105 100 - 109 mmol/L 02/05/2023 9:39 AM CDT [facility] CO2 Level 27 22 - 33 mmol/L 02/05/2023 9:39 AM CDT [facility] Glucose Level 121(H) 70 - 100 mg/dL 02/05/2023 9:39 AM CDT [facility] Calcium Level 8.7(L) 8.8 - 10.6 mg/dL 02/05/2023 9:39 AM CDT [facility] Anion Gap 5(L) 8 - 16 mmol/L 02/05/2023 9:39 AM CDT [facility] EGFR 54 mL/min/1.7 3mSq 02/05/2023 9:39 AM CDT [facility] Comment: In accordance with NKF-ASN Task Force recommendation, calculation based on the Chronic Kidney Disease Epidemiology Collaboration (CKD-EPI) equation without adjustment for race. eGFR adjusted for gender and age and calculated in ml/min/1.73mSquared. eGFR cannot be calculated if patient is under 18 years of age. Reference Range: >= 60 ml/min/1.73mSquared. Blood VENOUS STRUCTURE / Unknown Venipuncture / Unknown 02/05/2023 6:25 AM CDT 02/05/2023 9:27 AM CDT us Davis Lopez MD LAB BLOOD ORDERABLES Final Res ult [facility] [address] [place], [place] [address] [phone] * ABO/Rh (02/04/2023 12:35 PM CDT) Only the most recent of2 resultswithin the time period is included. ABO Blood Type O 02/04/2023 7:09 PM CDT [facility] Rh Type Positive 02/04/2023 7:09 PM CDT [facility] BLOOD BANK Blood VENOUS STRUCTURE / Unknown 02/04/2023 12:35 PM CDT 02/04/2023 1:06 PM CDT Davis Lopez MD BLOOD BANK TEST ORDERABLES Fin al Result Performing Organization Address [facility]/ZIP Co de Phone Number [facility] B[facility]OD B[facility] [address] [place], [place] [address] [phone] * Antibody screen, RBC (02/04/2023 12:35 PM CDT) Only the most recent of2 resultswithin the time period is included. Antibody Screen Interp Negative 02/04/2023 7:09 PM CDT [facility] Blood VENOUS STRUCTURE / Unknown 02/04/2023 12:35 PM CDT 02/04/2023 1:06 PM CDT Davis Lopez MD BLOOD BANK TEST ORDERABLES Fin al Result Performing Organization Address City/[facility]/ZIP Co de Phone Number [facility] B[facility] [address] [employer] [place], [place] [facility] [phone] * PTT (12/30/2022 12:43 PM CDT) Only the most recent of2 resultswithin the time period is included. Partial Thromboplastin Time 34 21 - 35 SECONDS 12/30/2022 4:16 PM CDT [facility] Blood VENOUS STRUCTURE / Unknown 12/30/2022 12:43 PM CDT 12/30/2022 12:43 PM CDT Davis Lopez MD LAB BLOOD ORDERABLES Final Res ult [facility] [address] [facility]. [address] [phone] * Protime-INR (12/30/2022 12:43 PM CDT) Only the most recent of2 resultswithin the time period is included. Protime 12.4 11.5 - 15.3 SECONDS 12/30/2022 4:16 PM CDT [facility] INR 0.9 12/30/2022 4:16 PM CDT [facility] Blood VENOUS STRUCTURE / Unknown 12/30/2022 12:43 PM CDT 12/30/2022 12:43 PM CDT Davis Lopez MD LAB BLOOD ORDERABLES Final Res ult Performing Organization Address City/[facility]/ZIP Co de Phone Number [facility] [address] [facility]. [address] [phone] * Hemoglobin A1c (12/30/2022 12:43 PM CDT) Hemoglobin A1C 5.5 <=6.5 % 12/30/2022 7:13 PM CDT [facility] Blood VENOUS STRUCTURE / Unknown 12/30/2022 12:43 PM CDT 12/30/2022 12:43 PM CDT Narrative [facility] - 12/30/2022 7:13 PM CDT This assay method is useful in the diagnosis of diabetes mellitus, identification of patients at risk for developing diabetes, and monitoring of patients with diabetes mellitus. Reference range information and glycemic goals are based on recommendations from the ADA ([place] Diabetes [employer]). Hgb A1C Value Glycemic Goal <8% Less Stringent <7% General (Non- Adults) <6.5% More Stringent 5.7% - 6.4% Increased risk for diabetes us Davis Lopez MD LAB BLOOD ORDERABLES Final Res ult [facility] Sandra Cottonessy [facility]. [address] [phone] * Hepatic function panel (12/30/2022 12:43 PM CDT) Albumin Level 3.9 3.5 - 5.0 g/dl 12/30/2022 4:12 PM CDT [facility] SGPT (ALT) 14 5 - 50 U/L 12/30/2022 4:12 PM CDT [facility] SGOT (AST) 16 10 - 58 U/L 12/30/2022 4:12 PM CDT [facility] Bilirubin Total 0.5 0.2 - 1.2 mg/dL 12/30/2022 4:12 PM CDT [facility] Bilirubin Direct 0.2 0.1 - 0.5 mg/dL 12/30/2022 4:12 PM CDT [facility] Bilirubin Indirect 0.3 0.2 - 1.2 mg/dL 12/30/2022 4:12 PM CDT [facility] Alkaline Phosphatase Level 85 40 - 150 U/L 12/30/2022 4:12 PM CDT [facility] Protein Total 6.8 6.0 - 8.3 g/dL 12/30/2022 4:12 PM CDT [facility] Blood VENOUS STRUCTURE / Unknown 12/30/2022 12:43 PM CDT 12/30/2022 12:43 PM CDT us Davis Lopez MD LAB BLOOD ORDERABLES Final Res ult Performing Organization Address City/[facility]/ZIP Co de Phone Number [facility] [address] [facility] [address] [phone] * MRSA/MSSA by PCR (12/30/2022 12:43 PM CDT) [facility] MRSA DNA MRSA Not Detected MRSA Not Detected 12/30/2022 5:11 PM CDT [facility] MSSA DNA MSSA Not Detected MSSA Not Detected, MSSA Indeterminate 12/30/2022 5:11 PM CDT [facility] Nasal Swab NASAL / Unknown 12/30/2022 1 2:43 PM CDT 12/30/2022 12:43 PM CDT Narrative [facility] - 12/30/2022 5:11 PM CDT Results from the Xpert SA Nasal Complete Assay should be interpreted in conjunction with other laboratory and clinical data available to the clinician, and should be used as an adjunct to nosocomial infection control efforts to identify patients needing enhanced precautions. Results should not be used to guide or monitor treatment for MRSA or SA infections. The performance characteristics were not established for patients less than or equal to 21 years of age. Inhibition has been observed in the presence of inhaled nasal steroids resulting in negative and/or indeterminate results. In the presence of MRSA,MSSA cannot be excluded MRSA/MSSA PCR is performed using realtime PCR. us Davis Lopez MD MICROBIOLOGY - GENERAL ORDERAB LES Final Result [facility] [address] [facility]. [address] [phone] * CBC and differential (09/28/2021 3:00 PM CDT) Only the most recent of3 resultswithin the time period is included. [facility] White Blood Cell Count 9.4 3.4 - 10.8 x10E3/uL [facility] 1 Red Blood Cell Count 4.34 3.77 - 5.28 x10E6/uL [facility] 1 Hemoglobin 12.7 11.1 - 15.9 g/dL [facility] 1 Hematocrit 39.1 34.0 - 46.6 % [facility] 1 Mean Corpuscular Volume 90 79 - 97 fL [facility] 1 MEAN CORPUSCULAR HEMOGLOBIN 29.3 26.6 - 33.0 pg [facility] 1 Mean Corpuscular Hemoglobin Conc 32.5 31.5 - 35.7 g/dL [facility] 1 Red Cell Distribution Width 12.1 11.7 - 15.4 % [facility] 1 Platelet Count 253 150 - 450 x10E3/uL [facility] 1 Neutrophils % 68 Not Estab. % [facility] 1 Lymphocytes % 20 Not Estab. % [facility] 1 Monocytes % 10 Not Estab. % [facility] 1 Eosinophils % 1 Not Estab. % [facility] 1 Basophils % 1 Not Estab. % [facility] 1 Neutrophils Abs 6.4 1.4 - 7.0 x10E3/uL [facility] 1 Lymphocytes Abs 1.8 0.7 - 3.1 x10E3/uL [facility] 1 Monocytes Abs 0.9 0.1 - 0.9 x10E3/uL [facility] 1 Eosinophils Abs 0.1 0.0 - 0.4 x10E3/uL [facility] 1 Basophils Abs 0.1 0.0 - 0.2 x10E3/uL [facility] 1 Immature Granulocytes 0 Not Estab. % [facility] 1 Immature Grans (Abs) 0.0 0.0 - 0.1 x10E3/uL [facility] 1 Blood VENOUS STRUCTURE / Unknown 09/28/2021 3:00 PM CDT 09/28/2021 Narrative [facility] - 09/29/2021 12:06 AM CDT Performed at: - [facility] [id number] Heeler: Doug Higgins MD, Phone: [phone] Patient Fasting: Yes us Dhaval Casey MD LAB BLOOD ORDERABLES Final R esult [facility] [address] [place] [address], [facility] [phone] [facility] 1 * MM Screening Mammogram Bilateral (04/25/2021 12:56 PM ASSISTANT REAL ESTATE MANAGER) Only the most recent of3 resultswithin the time period is included. Anatomical Region Laterality Modality Breast Bilateral Mammography Impressions 04/25/2021 1:01 PM ASSISTANT REAL ESTATE MANAGER No mammographic evidence of malignancy. No suspicious change. BI-RADS Category BI-RADS 2: Benign finding. 0 - Assessment is incomplete, needs additional imaging evaluation. 1 - Negative mammogram. 2 - Benign finding - negative. 3 - Probably benign finding - short interval followup suggested. 4 - Suspicious abnormality - biopsy should be considered. 5 - Highly suggestive of malignancy - appropriate action should be taken. 6 - Known biopsy - proven malignancy - appropriate action should be taken. COMMENT: A negative report should not delay biopsy if a dominant or clinically suspicious mass is present. Approximately 8 to 10 percent of cancers are not identified by x- ray. Adenosis and dense breasts may obscure an underlying neoplasm. NOTE: Information is entered into a reminder system for a target due date for the next mammogram and a letter is sent to the patient to schedule their next mammogram. Narrative 04/25/2021 1:01 PM ASSISTANT REAL ESTATE MANAGER EXAM: MM SCREENING MAMMOGRAM BILATERAL CLINICAL INDICATION: Z12.31:Encounter for screening mammogram for malignant neoplasm of breast , COMPARISON: 02/10/2020, 12/14/2018, 03/06/2015 FINDINGS: Routine digital screening mammography of both breasts was obtained, including craniocaudal and mediolateral oblique views. [employer] computer-aided detection software was utilized in the interpretation of this examination. There are scattered bilateral fibroglandular densities. Stable small benign- appearing nodules on the right. No dominant mass, suspicious microcalcifications, or architectural distortion. Sarah Clifford MD [facility] MAMMOGRAPHY ORDERABLES Final Result * US Retroperitoneal Kidney (11/20/2020 8:51 AM CDT) Anatomical Region Laterality Modality Ultrasound Impressions 11/20/2020 9:02 AM CDT 1. No acute finding. 2. Slight increased renal cortical echogenicity relative to liver suggesting some medical renal disease change. Narrative 11/20/2020 9:02 AM CDT HISTORY: N18.31:Chronic kidney disease, stage 3a (HCC) EXAM: US RETROPERITONEAL KIDNEY COMPARISON: No prior study. Correlation to CTA chest June 26, 2015 which near completely imaged both kidneys. FINDINGS: Real-time ultrasound imaging of the retroperitoneum is performed to evaluate the kidneys. The right kidney measures 8.9 x 4.9 x 4.5 cm for a calculated volume of 104 mL. No hydronephrosis. No nephrolithiasis. No discrete parenchymal lesion. Slightly increased renal cortical echogenicity relative to liver. The corticomedullary demarcation remains. Normal cortical thickness. No perinephric or paranephric fluid. The left kidney measures 8.5 x 5.1 x 3.8 cm for a calculated volume of 86 mL. No hydronephrosis. No nephrolithiasis. No discrete parenchymal lesion. Slight increased renal cortical echogenicity relative to liver. The corticomedullary demarcation remains. Normal cortical thickness. No perinephric or paranephric fluid. No intraperitoneal fluid. Procedure Note Eddie Greenberg MD - 11/20/2020 HISTORY: N18.31:Chronic kidney disease, stage 3a (HCC) EXAM: US RETROPERITONEAL KIDNEY COMPARISON: No prior study. Correlation to CTA chest June 26, 2015 which nearcompletely imaged both kidneys. FINDINGS: Real-time ultrasound imaging of the retroperitoneum is performed toevaluate the kidneys. The right kidney measures 8.9 x 4.9 x 4.5 cm for a calculated volume of104 mL. No hydronephrosis. No nephrolithiasis. No discrete parenchymallesion. Slightly increased renal cortical echogenicity relative to liver.The corticomedullary demarcation remains. Normal cortical thickness. Noperinephric or paranephric fluid. The left kidney measures 8.5 x 5.1 x 3.8 cm for a calculated volume of 86mL. No hydronephrosis. No nephrolithiasis. No discrete parenchymal lesion.Slight increased renal cortical echogenicity relative to liver. Thecorticomedullary demarcation remains. Normal cortical thickness. Noperinephric or paranephric fluid. No intraperitoneal fluid. IMPRESSION: 1. No acute finding. 2. Slight increased renal cortical echogenicity relative to liversuggesting some medical renal disease change. Blake Kwan MD [facility] US ORDERABLES Final Result * UA C&S if needed - Urine Clean Catch (01/05/2019 8:51 PM CDT) Only the most recent of2 resultswithin the time period is included. Color, Urine Yellow Colorless, Light Yellow, Yellow, Dark Yellow, Straw, Rosette 01/05/2019 9:16 PM CDT [facility] Clarity, Urine Clear Clear 01/05/2019 9:16 PM CDT [facility] HGB Urine Negative Negative 01/05/2019 9:16 PM CDT [facility] Microscopic Needed? Yes 01/05/2019 9:16 PM CDT [facility] WBC UA None Seen None, 0-5 /hpf 01/05/2019 9:16 PM CDT [facility] Blood UA 1-5 None Seen, 0-1, 1-5 /hpf 01/05/2019 9:16 PM CDT [facility] Epithelial Urine 0-1 None Seen, 0-1, 2-3, 3-5 01/05/2019 9:16 PM CDT [facility] Urine Culture Indicated? No No 01/05/2019 9:16 PM CDT [facility] Urine Collection Source Urine Clean Catch 01/05/2019 9:16 PM CDT [facility] Glucose UA Negative Negative mg/dL 01/05/2019 9:16 PM CDT [facility] Ketones UA Negative Negative MG/DL 01/05/2019 9:16 PM CDT [facility] Urobilinogen Urine Negative Negative E.U./DL 01/05/2019 9:16 PM CDT [facility] Protein UA Negative Negative mg/dL 01/05/2019 9:16 PM CDT [facility] Nitrite UA Negative Negative 01/05/2019 9:16 PM CDT [facility] Leukocyte Esterase UA Negative Negative 01/05/2019 9:16 PM CDT [facility] PH UA 7 5 - 8 01/05/2019 9:16 PM CDT [facility] Specific [place] UA 1.012 1.001 - 1.035 01/05/2019 9:16 PM CDT [facility] Bacteria None Seen None Seen /hpf 01/05/2019 9:16 PM CDT [facility] Bilirubin Urine Negative Negative 9 9:16 PM CDT [facility] Urine specimen obtained by clean catch procedure (specimen) URINE SPECIMEN / Unknown Collection / Unknown 01/05/2019 8:51 PM CDT 01/05/2019 8:56 PM CDT us Sergey Davila MD URINE ORDERABLES Final Resul t [facility] [address] [place] [address], [facility] [phone] * MRI Brain without Contrast (01/05/2019 8:32 PM CDT) Anatomical Region Laterality Modality Head Magnetic Resonan ce Impressions 01/05/2019 9:01 PM CDT 1. Negative MRI brain noncontrast for age Narrative 01/05/2019 9:01 PM CDT EXAMINATION: Brain MRI Noncontrast CLINICAL HISTORY: , weakness FINDINGS: Trace diffusion imaging is normal, with no evidence of acute stroke. Ventricles are normal and there is no mass. The pituitary fossa and optic chiasm are normal. Susceptibility imaging is normal with no evidence of hemorrhage products. Procedure Note Rory Beckham MD - 01/05/2019 EXAMINATION: Brain MRI Noncontrast CLINICAL HISTORY: , weakness FINDINGS: Trace diffusion imaging is normal, with no evidence of acute stroke. Ventricles are normal and there is no mass. The pituitary fossa and optic chiasm are normal. Susceptibility imaging is normal with no evidence of hemorrhage products. IMPRESSION: 1. Negative MRI brain noncontrast for age us Sergey Davila MD IMG MRI ORDERABLES Final Res ult * US Carotid VICTORIA Duplex, Complete (01/05/2019 7:51 PM CDT) Anatomical Region Laterality Modality Ultrasound 01/07/2019 8:20 AM CDT us Manda Jacobson MD CV VASCULAR ORDERABLES Final Res ult * CT Head without Contrast (01/05/2019 4:50 PM CDT) Only the most recent of2 resultswithin the time period is included. Anatomical Region Laterality Modality Computed Tomogra phy Impressions 01/05/2019 4:52 PM CDT No acute findings. Narrative 01/05/2019 4:[address] HEAD WO CONTRAST INDICATION: CVA r/o Spiral axial images were performed without IV contrast through the brain. Automated exposure control was used for dose reduction. Compared to the prior study from 5 days ago, bifrontal atrophy is again noted. There is no intracranial hemorrhage or mass effect or hydrocephalus. Paranasal sinuses are clear. Procedure Note Ricardo Jean MD - 01/05/[address] HEAD WO CONTRAST INDICATION: CVA r/o Spiral axial images were performed without IV contrast through the brain.Automated exposure control was used for dose reduction. Compared to the prior study from 5 days ago, bifrontal atrophy is againnoted. There is no intracranial hemorrhage or mass effect orhydrocephalus. Paranasal sinuses are clear. IMPRESSION: No acute findings. us Toy Adame MD IMG CT ORDERABLES Final Result * XR Chest 2 View PA and Lateral (01/05/2019 2:04 PM CDT) Anatomical Region Laterality Modality Chest N/A Digital Radiogra phy Narrative 01/05/2019 2:13 PM CDT XR CHEST 2 VIEW PA AND LATERAL PA and lateral chest Clinical history: left side weakness, gait abnormality x 5 days The lungs are clear. Heart size and mediastinal contours and pulmonary vasculature appear normal. Impression: Negative study. Procedure Note Ricardo Jean MD - 01/05/2019 XR CHEST 2 VIEW PA AND LATERAL PA and lateral chest Clinical history: left side weakness, gait abnormality x 5 days The lungs are clear. Heart size and mediastinal contours and pulmonaryvasculature appear normal. Impression: Negative study. us Rebeka Velasco NP IMG DIAGNOSTIC IMAGING ORDER INDIRA Final Result * CPK (01/05/2019 1:45 PM CDT) Only the most recent of2 resultswithin the time period is included. Creatine Phosphokinase Level 99 29 - 168 IU/L 01/05/2019 7:20 PM CDT [facility] Blood specimen (specimen) VENOUS STRUCTURE / Unknown Venipuncture / Unknown 01/05/2019 1:45 PM CDT 01/05/2019 2:08 PM CDT Sergey Davila MD LAB BLOOD ORDERABLES Final R esult [facility] [address] [place] [address], [facility] [phone] * ED ECG WET READ (01/05/2019 1:30 PM CDT) Narrative Manda Jacobson MD - 01/05/2019 1:30 PM CDT Toy Adame MD 01/05/2019 10:39 PM ECG 12 Lead - ED Date/Time: 01/05/2019 4:10 PM Performed by: Toy Adame MD Authorized by: Manda Jacobson MD Previous ECG: Previous ECG: Compared to current Comparison ECG info: Previous EKG on 12/31/2017. Normal sinus rhythm. Rate 72. Normal axis. No STEMI. Rate: ECG rate: 67 Comments: Rate of 67. Normal sinus rhythm. Normal axis. No STEMI Manda Jacobson MD ECG ORDERABLES Final Result * (ABNORMAL) Toxicology screen, urine (12/31/2018 7:02 PM CDT) Ecstasy Urine Negative Negative 12/31/2018 7:44 PM CDT [facility] Amphetamines Screen Urine Negative Negative 12/31/2018 7:44 PM CDT [facility] Barbiturates Screen Urine Negative Negative 12/31/2018 7:44 PM CDT [facility] Benzodiazepine Screen Urine Negative Negative 12/31/2018 7:44 PM CDT [facility] THC Cannabinoid Screen Urine Negative Negative 12/31/2018 7:44 PM CDT [facility] Cocaine Screen Urine Negative Negative 12/31/2018 7:44 PM CDT [facility] Opiates Screen Urine Positive(A) Negative 12/31/2018 7:44 PM CDT [facility] Methadone Urine Negative Negative 9 7:44 PM CDT [facility] Propoxyphene, Urine Negative Negative 12/31/2018 7:44 PM CDT [facility] Urine specimen (specimen) URINE SPECIMEN / Unknown 12/31/2018 7:02 PM CDT 12/31/2018 7:12 PM CDT Narrative [facility] - 12/31/2018 7:44 PM CDT Detectable Level for Amphetamines: >1000 ng/mL Detectable Level for Barbiturates: >200 ng/mL Detectable Level for Benzodiazepines: >200 ng/mL Detectable Level for Cannabinoids: >50 ng/mL Detectable Level for Cocaine: >300 ng/mL Detectable Level for Ecstacy: >500 ng/mL Detectable Level for Methadone: >300 ng/mL Detectable Level for Opiates: >300 ng/mL Detectable Level for Propoxyphene: >300 ng/mL These assays are intended for use in clinical laboratories. Results are to be used for Medical Purposes only. Unconfirmed screening results must not be used for non-medical purposes. These assays provide only preliminary analytical test results. A more specific alternate chemical method must be used to obtain a confirmed analytical result. Gas Chromatography/Mass Spectrophotometry (GC/MS) is the preferred confirmatory method. Clinical consideration and professional judgement should be applied to any drug of abuse test result, particularly when preliminary positive results are used. NOTE - Ecstasy results may be positive due to cross-reactivity with statin drugs such as Fenofibrate. [facility] [place] GLASS UNLOADING EQUIPMENT TENDER URINE ORDERABLES Final Result [facility] [address] [facility] [place] [address], [facility] [phone] * (ABNORMAL) Urine culture (12/31/2018 7:02 PM CDT) Culture Urine >100,000 CFU/ML Escherichia coli(A) CHILANGO 01/04/2019 7:40 AM CDT [facility] Culture Urine 10,000 - 50,000 CFU/ml Escherichia coli(A) CHILANGO 01/04/2019 7:40 AM CDT [facility] Comment:..(Second Isolate) Urine specimen obtained by clean catch procedure (specimen) URINE SPECIMEN / Unknown Collection / Unknown 12/31/2018 7:02 PM CDT 12/31/2018 7:33 PM CDT Narrative Organism Antibiotic Method Susceptibility Escherichia coli Ampicillin CHILANGO >=32 ug/ml: Resistant Escherichia coli Ampicillin + Sulbactam CHILANGO >=32 ug/ml: Resistant Escherichia coli Cefepime CHILANGO <=1 ug/ml: Susceptible Escherichia coli Ceftriaxone CHILANGO <=1 ug/ml: Susceptible Escherichia coli ESBL CHILANGO neg ug/ml Escherichia coli Gentamicin CHILANGO 8 ug/ml: Intermediate Escherichia coli Levofloxacin CHILANGO <=0.12 ug/ml: Susceptible Escherichia coli Nitrofurantoin CHILANGO 32 ug/ml: Susceptible Escherichia coli Piperacillin + Tazobactam CHILANGO <=4 ug/ml: Susceptible Escherichia coli Meropenem CHILANGO <=0.25 ug/ml: Susceptible Escherichia coli Tobramycin CHILANGO 2 ug/ml: Susceptible Escherichia coli Trimethoprim + Sulfamethoxazole CHILANGO >=320 ug/ml: Resistant Escherichia coli Ampicillin CHILANGO 4 ug/ml: Susceptible Escherichia coli Ampicillin + Sulbactam CHILANGO <=2 ug/ml: Susceptible Escherichia coli Cefepime CHILANGO <=1 ug/ml: Susceptible Escherichia coli Ceftriaxone CHILANGO <=1 ug/ml: Susceptible Escherichia coli ESBL CHILANGO neg ug/ml Escherichia coli Gentamicin CHILANGO <=1 ug/ml: Susceptible Escherichia coli Levofloxacin CHILANGO <=0.12 ug/ml: Susceptible Escherichia coli Nitrofurantoin CHILANGO <=16 ug/ml: Susceptible Escherichia coli Piperacillin + Tazobactam CHILANGO <=4 ug/ml: Susceptible Escherichia coli Meropenem CHILANGO <=0.25 ug/ml: Susceptible Escherichia coli Tobramycin CHILANGO <=1 ug/ml: Susceptible Escherichia coli Trimethoprim + Sulfamethoxazole CHILANGO <=20 ug/ml: Susceptible us Summer L [place] [employer] EQUIPMENT TENDER MICROBIOLOGY - GENERAL ORDERAB LES Final Result [facility] [address] [phone] * CKMB CKMB (12/31/2018 5:29 PM CDT) CPK Myocardial Band 4.1 0.1 - 6.5 ng/mL 12/31/2018 6:19 PM CDT [facility] Blood specimen (specimen) Venipuncture / Unknown 12/31/2018 5:29 PM CDT 12/31/2018 5:36 PM CDT us Vick Renner MD LAB BLOOD ORDERABLES F inal Result Performing Organization Address City/[facility]/ZIP Co de Phone Number [facility] [address] [facility]. [address] [phone] * SST (12/31/2018 5:29 PM CDT) Extra Tube see comment 12/31/2018 7:00 PM CDT [facility] Comment:Auto-resulted Blood specimen (specimen) Venipuncture / Unknown 12/31/2018 5:29 PM CDT 12/31/2018 5:36 PM CDT us Vick Renner MD LAB BLOOD ORDERABLES F inal Result Performing Organization Address City/[facility]/ZIP Co de Phone Number [facility] [address] [facility]. [address] [phone] * Purple top tube (12/31/2018 5:29 PM CDT) Extra Tube see comment 12/31/2018 7:00 PM CDT [facility] Comment:Auto-resulted Blood specimen (specimen) Venipuncture / Unknown 12/31/2018 5:29 PM CDT 12/31/2018 5:36 PM CDT us Vick Renner MD LAB BLOOD ORDERABLES F inal Result Performing Organization Address City/State/[facility] Co de Phone Number [facility] Sandra Cottonessy [facility]. [address] [phone] * Blue Top Tube (12/31/2018 5:29 PM CDT) Extra Tube see comment 12/31/2018 7:00 PM CDT [facility] Comment:Auto-resulted Blood specimen (specimen) Venipuncture / Unknown 12/31/2018 5:29 PM CDT 12/31/2018 5:36 PM CDT us Vick Renner MD LAB BLOOD ORDERABLES F inal Result Performing Organization Address [facility] Co de Phone Number [facility] Sandra Cottonessy [facility]. [place], [place] [address] [phone] * Green Tube (12/31/2018 5:29 PM CDT) Extra Tube see comment 12/31/2018 7:00 PM CDT [facility] Comment:Auto-resulted Blood specimen (specimen) Venipuncture / Unknown 12/31/2018 5:29 PM CDT 12/31/2018 5:36 PM CDT us Vick Renner MD LAB BLOOD ORDERABLES F inal Result Performing Organization Address City/[facility] Co de Phone Number [facility] Sandra Cottonessy [facility]. [address] [phone] * XR Dexa Central (12/14/2018 11:24 AM CDT) Only the most recent of2 resultswithin the time period is included. Anatomical Region Laterality Modality Other Impressions 12/15/2018 1:54 AM CDT 1. Mild, rotatory, lumbar levoscoliosis, convexity at L2-L3, with no evidence of osteopenia or osteoporosis in the lumbar spine, L1-L4. In comparison with the 11/18/2016 DEXA scan, bone mineral density in the lumbar spine, L1-L4, has decreased 4.1%, from 1.075 g/sq cm to 1.031 g/sq cm. 2. Osteopenia involving the whole left hip and left femoral neck. In comparison with previous study, bone mineral density in the whole left hip has increased 1.7%, from 0.748 g/sq cm to 0.761 g/sq cm. 3. Osteopenia in the whole right hip and right femoral neck. In comparison with the previous DEXA scan, bone mineral density in the whole right hip has increased 5.9%, from 0.680 g/sq cm to 0.720 g/sq cm. NOTE: World Health Organization (WHO) criteria for defining osteoporosis is a young adult T-score <-2.5. Further studies and extrapolations of WHO criteria have been applied to other osseous sites and demographic groups including men but not to pre-menopausal women. Overall bone strength is a combination of BMD and bone architecture. Current DEXA's only provide BMD information; therefore clinical evaluation of the patient and their risk factors remains an important factor in detecting osteoporosis. Risk factors include: fractures, loss of height, family history, smoking, and corticosteroid use. Secondary causes of low BMD include; idiopathic, alcoholism, hyperparathyroidism, Dilantin, multiple myeloma, and hypogonadism. Narrative 12/15/2018 1:54 AM CDT XR DEXA CENTRAL CLINICAL HISTORY: Z78.0:Asymptomatic menopausal state COMPARISON: 11/18/2016 DEXA scan Bone mineral density was determined over the lumbar spine, L1-L4, and over both hips utilizing the Hologic bone densitometer. The results of the current test can be summarized in the following table: REGION AP SPINE L1-L4 BMD (g/cm2) = 1.031 Young Adult T-score = -0.1 Age-Matched Z-score = 2.2 WHO classification = Normal WHOLE LEFT HIP BMD (g/cm2) = 0.761 Young Adult T-score = -1.5 Age-Matched Z-score = 0.2 WHO classification = Osteopenia WHOLE RIGHT HIP BMD (g/cm2) = 0.720 Young Adult T-score = -1.8 Age-Matched Z-score = -0.1 WHO classification = Osteopenia LEFT FEMORAL NECK BMD (g/cm2) = 0.627 Young Adult T-score = -2.0 Age-Matched Z-score = 0.0 WHO classification = Osteopenia RIGHT FEMORAL NECK BMD(g/cm2) = 0.639 Young Adult T-score = -1.9 Age-Matched Z-score = 0.1 WHO Classification = Osteopenia FRAX ASSESSMENT: Patient's 10-year risk of any fracture is 12%. Patient's 10-year risk of hip fracture is 2.7%. Procedure Note Matthew Craig MD - 12/15/2018 XR DEXA CENTRAL CLINICAL HISTORY: Z78.0:Asymptomatic menopausal state COMPARISON: 11/18/2016 DEXA scan Bone mineral density was determined over the lumbar spine, L1-L4, and overboth hips utilizing the Hologic bone densitometer. The results of the current test can be summarized in the followingtable: REGION AP SPINE L1-L4 BMD (g/cm2) = 1.031 Young Adult T-score = -0.1 Age-Matched Z-score = 2.2 WHO classification = Normal WHOLE LEFT HIP BMD (g/cm2) = 0.761 Young Adult T-score = -1.5 Age-Matched Z-score = 0.2 WHO classification = Osteopenia WHOLE RIGHT HIP BMD (g/cm2) = 0.720 Young Adult T-score = -1.8 Age-Matched Z-score = -0.1 WHO classification = Osteopenia LEFT FEMORAL NECK BMD (g/cm2) = 0.627 Young Adult T-score = -2.0 Age-Matched Z-score = 0.0 WHO classification = Osteopenia RIGHT FEMORAL NECK BMD(g/cm2) = 0.639 Young Adult T-score = -1.9 Age-Matched Z-score = 0.1 WHO Classification = Osteopenia FRAX ASSESSMENT: Patient's 10-year risk of any fracture is 12%. Patient's 10-year risk of hip fracture is 2.7%. IMPRESSION: 1. Mild, rotatory, lumbar levoscoliosis, convexity at L2-L3, with noevidence of osteopenia or osteoporosis in the lumbar spine, L1-L4. Incomparison with the 11/18/2016 DEXA scan, bone mineral density in thelumbar spine, L1-L4, has decreased 4.1%, from 1.075 g/sq cm to 1.031 g/sqcm. 2. Osteopenia involving the whole left hip and left femoral neck. Incomparison with previous study, bone mineral density in the whole left hiphas increased 1.7%, from 0.748 g/sq cm to 0.761 g/sq cm. 3. Osteopenia in the whole right hip and right femoral neck. Incomparison with the previous DEXA scan, bone mineral density in the wholeright hip has increased 5.9%, from 0.680 g/sq cm to 0.720 g/sq cm. NOTE: World Health Organization (WHO) criteria for defining osteoporosisis a young adult T-score <-2.5. Further studies and extrapolations of WHOcriteria have been applied to other osseous sites and demographic groupsincluding men but not to pre-menopausal women. Overall bone strength is acombination of BMD and bone architecture. Current DEXA's only provide BMDinformation; therefore clinical evaluation of the patient and their riskfactors remains an important factor in detecting osteoporosis. Riskfactors include: fractures, loss of height, family history, smoking, andcorticosteroid use. Secondary causes of low BMD include; idiopathic,alcoholism, hyperparathyroidism, Dilantin, multiple myeloma, andhypogonadism. Sarah Clifford MD [facility] ORDERABLES Final R esult * Outside Film Mammography (11/14/2016 2:10 PM CDT) Only the most recent of2 resultswithin the time period is included. Narrative PaulieMay - 12/16/2018 1:20 PM CDT Outside facility imaging no report required. Procedure Note PaulieMay - 12/16/2018 Outside facility imaging no report required. us Sarah Clifford MD [facility] ORDERABLES Final Result * MRI Lumbar Spine without Contrast (09/27/2016 [...] bulge and facet hypertrophic changes contributing to [id number] central canal stenosis and severe left and [...] the right with contact of the exiting [id number] root. L4-5: Asymmetric leftward disc bulge and facet hypertrophic changescontributing to [id number] central canal stenosis and severe leftand mild right foraminal stenosis. There is contact of the exiting left [id number] root. L5-S1: Mild diffuse disc bulge and [...] roots at both of these levels. us Hugo Pullaim MD IMG MRI ORDERABLES Final Result * Outside Film CT Chest (01/29/2016 9:10 AM CDT) Only the most recent of2 resultswithin the time period is included. Narrative EXTERNAL - 02/26/2023 11:46 AM ASSISTANT REAL ESTATE MANAGER Outside facility imaging no report required. Mauri Luciano MD IMG CT ORDERABLES Final Resu lt EXTERNAL * CTA Chest PE Protocol (06/27/2015 12:02 AM ASSISTANT REAL ESTATE MANAGER) Anatomical Region Laterality Modality Computed Tomogra phy 06/27/2015 12:0 2 AM ASSISTANT REAL ESTATE MANAGER Narrative 06/27/2015 12:57 AM ASSISTANT REAL ESTATE MANAGER CTA Chest w/wo IV Contrast CLINICAL HISTORY: Cough, hemoptysis COMPARISON: None. TECHNIQUE: CT angiography of the pulmonary arteries was performed. 3-D CT and multiplanar CT reconstruction imaging was obtained. FINDINGS: No pathognomonic abnormal intraluminal filling defects are seen within the pulmonary arteries to suggest a diagnosis of pulmonary embolism. No aneurysm dilatation of the aorta is evident. There is moderate calcific atherosclerotic plaque along the aorta. The right brachiocephalic, left common carotid, and left subclavian arteries arise separately and sequentially from the aortic arch, in standard fashion. There is a somewhat rounded, pleural-based, 4.6 x 4.1 cm area of apparent consolidation posteromedially in the left upper lobe of the lung, abutting the pleural surface along the posterior aspect of the aortic arch and also blending with the left hilum. There is some interstitial prominence peripheral to this rounded area which could be related to postobstructive pneumonitis or postobstructive atelectasis. There are small aorticopulmonary window lymph nodes which measure up to approximately 1.5 x 0.8 cm. There is mild left hilar fullness, measuring 1.8 x 0.7 cm. There is some groundglass and interstitial prominence in both lower lobes of the lungs which may be related to parenchymal scarring and/or atelectasis. A scar-like opacity is present in the right middle lobe on series 5, image 58. The heart is borderline in size, with mild left anterior descending and left main coronary artery calcification. The thyroid gland is normal. There is an apparent hiatal hernia with postop findings in relationship to the stomach which could be related to gastric sleeve surgery. The gallbladder has been resected. There is a mild, sinuous, thoracolumbar scoliosis with multilevel marginal spurring in the thoracic spine. IMPRESSION: 1. No pathognomonic evidence of pulmonary embolism. 2. 4.6 x 4.1 cm, rounded area of apparent consolidation in the left upper lobe of the lung, with mild postobstructive atelectasis and/or pneumonitis. Following completion of appropriate medical therapy, a follow-up CT is recommended to demonstrate resolution of this finding. 3. Borderline size of the heart with 2 vessel coronary artery calcification. 4. Small hiatal hernia with postop findings suggestive of gastric sleeve surgery and cholecystectomy. BUN: 14, CREAT 0.82, Was Iodinated IV Contrast Used? (excluding gastroview) Yes, Contrast Given omni 350, Amount 90ml FINAL Transcribed By: PATIENCE Transcribed Date/Time: 27-JUN-2015 00:44 Electronically Signed By: Matthew Craig MD Proxied for: Matthew Craig MD Signed Date/Time: 27-JUN-2015 00:54 us Rad[facility] CT ORDERABLES Final Resu lt * XR Chest 2 View PA and Lateral (06/26/2015 10:21 PM ASSISTANT REAL ESTATE MANAGER) Only the most recent of2 resultswithin the time period is included. Anatomical Region Laterality Modality Chest Radiographic Ninoska ging 06/26/2015 10:2 1 PM ASSISTANT REAL ESTATE MANAGER Narrative 06/27/2015 3:49 AM ASSISTANT REAL ESTATE MANAGER XR Chest EPA and Lateral 2V CLINICAL HISTORY: Cough COMPARISON: 12/16/2014 two-view chest There is persistent minimal blunting of the posterior costophrenic sulci, likely related to pleural thickening. There is some patchy interstitial prominence at the lung bases which may be related to parenchymal scar and/or atelectasis. There is a focal infiltrate in the medial left upper lobe of the lung adjacent to the aortic arch, new since the previous study, presumably related to an area of pneumonia or pneumonitis. The cardiac silhouette is normal in size. There is moderate, calcific atherosclerotic plaque in the aortic arch. There is mild joint space narrowing bilaterally in the acromioclavicular joints. IMPRESSION: 1. Left upper lobe pneumonia/pneumonitis. A repeat chest x-ray following appropriate medical therapy is suggested to show resolution. 2. Mild discoid atelectasis versus parenchymal scarring at the lung bases, left side greater than right. Was Iodinated IV Contrast Used? (excluding gastroview) No FINAL Transcribed By: PATIENCE Transcribed Date/Time: 27-JUN-2015 03:43 Electronically Signed By: Matthew Craig MD Proxied for: Matthew Craig MD Signed Date/Time: 27-JUN-2015 03:46 us Radiologist [facility] DIAGNOSTIC IMAGING ORDER INDIRA Final Result Visit Diagnoses Diagnosis Start Date Vertebral syndrome Thoracic or lumbosacral neuritis or radiculitis, unspecified 09/19/2016 Vertebral syndrome Thoracic or lumbosacral neuritis or radiculitis, unspecified 09/27/2016 Asymptomatic postmenopausal status (age-related) (natural) 11/12/2016 Asymptomatic postmenopausal status (age-related) (natural) 11/18/2016 Menopause Symptomatic menopausal or female climacteric states 09/21/2018 Breast screening Breast screening, unspecified 09/21/2018 Essential hypertension Unspecified essential hypertension 10/16/2018 Dyspnea on exertion Other dyspnea and respiratory abnormality 10/16/2018 Essential hypertension Unspecified essential hypertension 10/27/2018 Dyspnea on exertion Other dyspnea and respiratory abnormality 10/27/2018 Essential hypertension Unspecified essential hypertension 10/27/2018 Dyspnea on exertion Other dyspnea and respiratory abnormality 10/27/2018 Essential hypertension Unspecified essential hypertension 11/06/2018 Sinus bradycardia Other specified cardiac dysrhythmias 11/06/2018 Dyspnea on exertion Other dyspnea and respiratory abnormality 11/06/2018 Menopause Symptomatic menopausal or female climacteric states 12/14/2018 Breast screening Breast screening, unspecified 12/14/2018 Urinary tract infection without hematuria, site unspecified 12/31/2018 Accident due to mechanical fall without injury, initial encounter 12/31/2018 Generalized weakness 12/31/2018 Generalized weakness 01/05/2019 Left-sided weakness 01/05/2019 Essential hypertension Unspecified essential hypertension 01/14/2020 Sinus bradycardia Other specified cardiac dysrhythmias 01/14/2020 Dyslipidemia Other and unspecified hyperlipidemia 01/14/2020 Screening mammogram, encounter for 01/27/2020 Essential hypertension Unspecified essential hypertension 02/02/2020 Dyspnea on exertion Other dyspnea and respiratory abnormality 02/02/2020 Dyslipidemia Other and unspecified hyperlipidemia 02/02/2020 Screening mammogram, encounter for 02/10/2020 Essential hypertension Unspecified essential hypertension 02/18/2020 Dyslipidemia Other and unspecified hyperlipidemia 02/18/2020 Acute diastolic CHF (congestive heart failure) (HCC) 02/18/2020 Essential hypertension Unspecified essential hypertension 02/18/2020 Dyslipidemia Other and unspecified hyperlipidemia 02/18/2020 Acute diastolic CHF (congestive heart failure) (HCC) 02/18/2020 Essential hypertension Unspecified essential hypertension 06/16/2020 Acute diastolic CHF (congestive heart failure) (HCC) 06/16/2020 Dyslipidemia Other and unspecified hyperlipidemia 06/16/2020 Stage 3a chronic kidney disease (HCC) 10/24/2020 Stage 3a chronic kidney disease (HCC) 11/20/2020 Visit for screening mammogram 02/27/2021 Visit for screening mammogram 04/25/2021 Essential hypertension Unspecified essential hypertension 09/28/2021 Dyspnea on exertion Other dyspnea and respiratory abnormality 09/28/2021 Peripheral vascular angioplasty status with implants and grafts 09/28/2021 Essential hypertension Unspecified essential hypertension 10/23/2021 Dyspnea on exertion Other dyspnea and respiratory abnormality 10/23/2021 Peripheral vascular angioplasty status with implants and grafts 10/23/2021 Essential hypertension Unspecified essential hypertension 10/23/2021 Dyspnea on exertion Other dyspnea and respiratory abnormality 10/23/2021 Peripheral vascular angioplasty status with implants and grafts 10/23/2021 Acute diastolic congestive heart failure (HCC) 10/23/2021 Essential hypertension Unspecified essential hypertension 07/12/2022 Acute diastolic CHF (congestive heart failure) (HCC) 07/12/2022 Sinus bradycardia Other specified cardiac dysrhythmias 07/12/2022 Dyspnea on exertion Other dyspnea and respiratory abnormality 07/12/2022 Mixed hyperlipidemia 07/12/2022 Acute diastolic CHF (congestive heart failure) (HCC) 01/21/2023 Essential hypertension Unspecified essential hypertension 01/21/2023 Mixed hyperlipidemia 01/21/2023 Preop cardiovascular exam Pre-operative cardiovascular examination 01/21/2023 Constipation, unspecified constipation type 02/16/2023 Pneumonia of left lower lobe due to infectious organism 02/16/2023 Drug-induced constipation Other constipation 02/16/2023 Generalized weakness 02/16/2023 Age-related osteoporosis without current pathological fracture 02/25/2023 Chronic diastolic congestive heart failure (HCC) 02/25/2023 Chronic bilateral low back pain with bilateral sciatica 02/25/2023 Stage 3 chronic kidney disease, unspecified whether stage 3a or 3b CKD (HCC) 02/25/2023 Drug-induced constipation Other constipation 02/25/2023 Dyslipidemia Other and unspecified hyperlipidemia 02/25/2023 Essential hypertension Unspecified essential hypertension 02/25/2023 Hoarseness Dysphonia 02/25/2023 Mixed hyperlipidemia 02/25/2023 Major depression, chronic 02/25/2023 Primary osteoarthritis of left knee 02/25/2023 Overactive bladder Hypertonicity of bladder 02/25/2023 Recurrent UTI Urinary tract infection, site not specified 02/25/2023 Drug-induced constipation Other constipation 02/26/2023 Chronic diastolic congestive heart failure (HCC) 02/26/2023 Age-related osteoporosis without current pathological fracture 02/26/2023 Stage 3 chronic kidney disease, unspecified whether stage 3a or 3b CKD ([facility]) 02/26/2023 Chronic bilateral low back pain with bilateral sciatica 02/26/2023 Essential hypertension Unspecified essential hypertension 02/26/2023 Chronic diastolic congestive heart failure ([facility]) 02/27/2023 Age-related osteoporosis without current pathological fracture 02/27/2023 Stage 3 chronic kidney disease, unspecified whether stage 3a or 3b CKD ([facility]) 02/27/2023 Chronic bilateral low back pain with bilateral sciatica 02/27/2023 Drug-induced constipation Other constipation 02/27/2023 Essential hypertension Unspecified essential hypertension 02/27/2023 Dyslipidemia Other and unspecified hyperlipidemia 02/27/2023 Hoarseness Dysphonia 02/27/2023 Major depression, chronic 02/27/2023 Primary osteoarthritis of left knee 02/27/2023 Overactive bladder Hypertonicity of bladder 02/27/2023 Recurrent UTI Urinary tract infection, site not specified 02/27/2023 Gastroesophageal reflux disease without esophagitis Esophageal reflux 02/28/2023 Adjustment insomnia Insomnia, unspecified 02/28/2023 Chronic diastolic congestive heart failure (HCC) 02/28/2023 Age-related osteoporosis without current pathological fracture 02/28/2023 Stage 3 chronic kidney disease, unspecified whether stage 3a or 3b CKD ([facility]) 02/28/2023 Chronic bilateral low back pain with bilateral sciatica 02/28/2023 Drug-induced constipation Other constipation 02/28/2023 Essential hypertension Unspecified essential hypertension 02/28/2023 Dyslipidemia Other and unspecified hyperlipidemia 02/28/2023 Hoarseness Dysphonia 02/28/2023 Major depression, chronic 02/28/2023 Primary osteoarthritis of left knee 02/28/2023 Overactive bladder Hypertonicity of bladder 02/28/2023 Recurrent UTI Urinary tract infection, site not specified 02/28/2023 Mixed hyperlipidemia 02/28/2023 Drug-induced constipation Other constipation 03/03/2023 Gastroesophageal reflux disease without esophagitis Esophageal reflux 03/03/2023 Adjustment insomnia Insomnia, unspecified 03/03/2023 Chronic diastolic congestive heart failure (HCC) 03/03/2023 Stage 3 chronic kidney disease, unspecified whether stage 3a or 3b CKD ([facility]) 03/03/2023 Essential hypertension Unspecified essential hypertension 03/03/2023 Chronic bilateral low back pain with bilateral sciatica 03/03/2023 Dyslipidemia Other and unspecified hyperlipidemia 03/03/2023 Hoarseness Dysphonia 03/03/2023 Major depression, chronic 03/03/2023 Primary osteoarthritis of left knee 03/03/2023 Overactive bladder Hypertonicity of bladder 03/03/2023 Recurrent UTI Urinary tract infection, site not specified 03/03/2023 Mixed hyperlipidemia 03/03/2023 COVID-19 03/04/2023 Drug-induced constipation Other constipation 03/04/2023 Primary osteoarthritis of left knee 03/04/2023 Gastroesophageal reflux disease without esophagitis Esophageal reflux 03/04/2023 Adjustment insomnia Insomnia, unspecified 03/04/2023 Chronic diastolic congestive heart failure (HCC) 03/04/2023 Stage 3 chronic kidney disease, unspecified whether stage 3a or 3b CKD ([facility]) 03/04/2023 Major depression, chronic 03/04/2023 Dyslipidemia Other and unspecified hyperlipidemia 03/04/2023 Chronic bilateral low back pain with bilateral sciatica 03/04/2023 Essential hypertension Unspecified essential hypertension 03/04/2023 Overactive bladder Hypertonicity of bladder 03/04/2023 Mixed hyperlipidemia 03/04/2023 COVID-19 03/05/2023 Drug-induced constipation Other constipation 03/05/2023 Primary osteoarthritis of left knee 03/05/2023 Gastroesophageal reflux disease without esophagitis Esophageal reflux 03/05/2023 Adjustment insomnia Insomnia, unspecified 03/05/2023 Chronic diastolic congestive heart failure (HCC) 03/05/2023 Stage 3 chronic kidney disease, unspecified whether stage 3a or 3b CKD ([facility]) 03/05/2023 Major depression, chronic 03/05/2023 Dyslipidemia Other and unspecified hyperlipidemia 03/05/2023 Essential hypertension Unspecified essential hypertension 03/05/2023 Overactive bladder Hypertonicity of bladder 03/05/2023 Mixed hyperlipidemia 03/05/2023 Hoarseness Dysphonia 03/05/2023 COVID-19 03/06/2023 Drug-induced constipation Other constipation 03/06/2023 Primary osteoarthritis of left knee 03/06/2023 Gastroesophageal reflux disease without esophagitis Esophageal reflux 03/06/2023 Major depression, chronic 03/06/2023 Stage 3 chronic kidney disease, unspecified whether stage 3a or 3b CKD (HCC) 03/06/2023 Chronic diastolic congestive heart failure (HCC) 03/06/2023 Overactive bladder Hypertonicity of bladder 03/06/2023 Mixed hyperlipidemia 03/06/2023 COVID-19 03/07/2023 Drug-induced constipation Other constipation 03/07/2023 Primary osteoarthritis of left knee 03/07/2023 Gastroesophageal reflux disease without esophagitis Esophageal reflux 03/07/2023 Major depression, chronic 03/07/2023 Stage 3 chronic kidney disease, unspecified whether stage 3a or 3b CKD (HCC) 03/07/2023 Chronic diastolic congestive heart failure (HCC) 03/07/2023 Overactive bladder Hypertonicity of bladder 03/07/2023 Mixed hyperlipidemia 03/07/2023 Adjustment insomnia Insomnia, unspecified 03/07/2023 Dyslipidemia Other and unspecified hyperlipidemia 03/07/2023 Essential hypertension Unspecified essential hypertension 03/07/2023 Hoarseness Dysphonia 03/07/2023 Chronic bilateral low back pain with bilateral sciatica 03/07/2023 Recurrent UTI Urinary tract infection, site not specified 03/07/2023 Age-related osteoporosis without current pathological fracture 03/07/2023 COVID-19 03/10/2023 Drug-induced constipation Other constipation 03/10/2023 Primary osteoarthritis of left knee 03/10/2023 Gastroesophageal reflux disease without esophagitis Esophageal reflux 03/10/2023 Major depression, chronic 03/10/2023 Adjustment insomnia Insomnia, unspecified 03/10/2023 Mixed hyperlipidemia 03/10/2023 Overactive bladder Hypertonicity of bladder 03/10/2023 Chronic diastolic congestive heart failure (HCC) 03/10/2023 Stage 3 chronic kidney disease, unspecified whether stage 3a or 3b CKD (HCC) 03/10/2023 Dyslipidemia Other and unspecified hyperlipidemia 03/10/2023 Essential hypertension Unspecified essential hypertension 03/10/2023 Hoarseness Dysphonia 03/10/2023 Chronic bilateral low back pain with bilateral sciatica 03/10/2023 Recurrent UTI Urinary tract infection, site not specified 03/10/2023 COVID-19 03/11/2023 Drug-induced constipation Other constipation 03/11/2023 Mixed hyperlipidemia 03/11/2023 Primary osteoarthritis of left knee 03/11/2023 Overactive bladder Hypertonicity of bladder 03/11/2023 Gastroesophageal reflux disease without esophagitis Esophageal reflux 03/11/2023 Chronic diastolic congestive heart failure (HCC) 03/11/2023 Major depression, chronic 03/11/2023 Stage 3 chronic kidney disease, unspecified whether stage 3a or 3b CKD (HCC) 03/11/2023 Hoarseness Dysphonia 03/11/2023 Essential hypertension Unspecified essential hypertension 03/11/2023 Dyslipidemia Other and unspecified hyperlipidemia 03/11/2023 Lung nodule Other diseases of lung, not elsewhere classified 03/12/2023 COVID-19 03/12/2023 Drug-induced constipation Other constipation 03/12/2023 Mixed hyperlipidemia 03/12/2023 Primary osteoarthritis of left knee 03/12/2023 Overactive bladder Hypertonicity of bladder 03/12/2023 Stage 3 chronic kidney disease, unspecified whether stage 3a or 3b CKD (HCC) 03/12/2023 Major depression, chronic 03/12/2023 Chronic diastolic congestive heart failure (HCC) 03/12/2023 Gastroesophageal reflux disease without esophagitis Esophageal reflux 03/12/2023 Essential hypertension Unspecified essential hypertension 03/12/2023 Hoarseness Dysphonia 03/12/2023 Chronic bilateral low back pain with bilateral sciatica 03/12/2023 Right upper lobe pulmonary nodule 03/24/2023 Dyspnea on exertion Other dyspnea and respiratory abnormality 03/24/2023 Hoarseness Dysphonia 03/24/2023 Right upper lobe pulmonary nodule 04/18/2023 Lung nodules Other diseases of lung, not elsewhere classified 04/18/2023 Lung nodules Other diseases of lung, not elsewhere classified 04/18/2023 Essential hypertension Unspecified essential hypertension 04/24/2023 Chronic diastolic congestive heart failure (HCC) 04/24/2023 Mixed hyperlipidemia 04/24/2023 Class 1 obesity due to excess calories with serious comorbidity and body mass index (BMI) of 31.0 to 31.9 in adult 04/24/2023 Stage 3 chronic kidney disease, unspecified whether stage 3a or 3b CKD (HCC) 04/24/2023 Acute diastolic CHF (congestive heart failure) (HCC) 05/16/2023 Essential hypertension Unspecified essential hypertension 05/16/2023 Sinus bradycardia Other specified cardiac dysrhythmias 05/16/2023 Dyspnea on exertion Other dyspnea and respiratory abnormality 05/16/2023 Essential hypertension Unspecified essential hypertension 06/26/2023 Essential hypertension Unspecified essential hypertension 06/27/2023 Chronic diastolic congestive heart failure (HCC) 06/27/2023 Essential hypertension Unspecified essential hypertension 01/09/2024 Chronic diastolic congestive heart failure (HCC) 01/09/2024 Sinus bradycardia Other specified cardiac dysrhythmias 01/09/2024 Dyspnea on exertion Other dyspnea and respiratory abnormality 01/09/2024 Acute cough 03/02/2024 Exposure to the flu Contact with or exposure to other viral diseases 03/02/2024 Ground-level fall 03/02/2024 Right hip pain Pain in joint, pelvic region and thigh 03/02/2024 Chronic pain disorder Chronic pain syndrome 06/24/2024 Other spondylosis, lumbar region 06/24/2024 Lumbar radiculopathy Thoracic or lumbosacral neuritis or radiculitis, unspecified 06/24/2024 Sacroiliitis Sacroiliitis, not elsewhere classified 06/24/2024 Chronic pain disorder Chronic pain syndrome 08/24/2024 Other spondylosis, lumbar region 08/24/2024 Lumbar radiculopathy Thoracic or lumbosacral neuritis or radiculitis, unspecified 08/24/2024 Sacroiliitis Sacroiliitis, not elsewhere classified 08/24/2024 SOB (shortness of breath) Shortness of breath 08/26/2024 COPD exacerbation (HCC) Obstructive chronic bronchitis with exacerbation 08/26/2024 Acute cough 08/26/2024 Chronic pain disorder Chronic pain syndrome 11/24/2024 Other spondylosis, lumbar region 11/24/2024 Lumbar radiculopathy Thoracic or lumbosacral neuritis or radiculitis, unspecified 11/24/2024 Sacroiliitis Sacroiliitis, not elsewhere classified 11/24/2024 Sinus bradycardia Other specified cardiac dysrhythmias 01/14/2025 Essential hypertension Unspecified essential hypertension 01/14/2025 Chronic diastolic congestive heart failure (HCC) 01/14/2025 Sinus bradycardia Other specified cardiac dysrhythmias 01/14/2025 Dyspnea on exertion Other dyspnea and respiratory abnormality 01/14/2025 Chronic diastolic congestive heart failure (HCC) 02/11/2025 Sinus bradycardia Other specified cardiac dysrhythmias 02/11/2025 Dyspnea on exertion Other dyspnea and respiratory abnormality 02/11/2025 Shortness of breath 02/25/2025 Shortness of breath 02/25/2025 Acute diastolic CHF (congestive heart failure) (HCC) 02/25/2025 Essential hypertension Unspecified essential hypertension 02/25/2025 Anxiety Anxiety state, unspecified 01/05/2019 Chronic low back pain with sciatica 01/05/2019 Essential hypertension Unspecified essential hypertension 01/05/2019 Generalized weakness 01/05/2019 Constipation 02/16/2023 Essential hypertension Unspecified essential hypertension 02/16/2023 Dyslipidemia Other and unspecified hyperlipidemia 02/16/2023 Gastroesophageal reflux disease Esophageal reflux 02/16/2023 Major depression, chronic 02/16/2023 Chronic low back pain with sciatica 02/16/2023 CKD (chronic kidney disease), stage III (HCC) Chronic kidney disease, Stage III (moderate) 02/16/2023 Osteoarthritis of left knee s/p L TKA 02/04/23 Osteoarthrosis, unspecified whether generalized or localized, lower leg 02/16/2023 Chronic diastolic congestive heart failure (HCC) 02/16/2023 Hoarseness Dysphonia 02/16/2023 Left lower lobe pneumonia Pneumonia, organism unspecified 02/16/2023 Lung nodules Other diseases of lung, not elsewhere classified 04/18/2023 Care Teams Marine Electronics Repairer Relationship Specialty [place] [address] [facility] [address] [address] [place] [address] PCP - General Family Medicine 08/26/24
--- OUTSIDE RECORDS SUMMARY | 2025-03-24 20:40 | XMS_ITS | Encounter Summary ---
Author Organization [facility] and [facility] Subsidiaries and Affiliates Address [address] [address] [place] [address] Care Team Providers Care Broke Handler Name Role Phone Brittny Kong MD Primary Care Provider [phone] Encounter Details Date Type Department Care Team (Late st Contact Info) Description 02/26/2023 Procedure Pass [facility] - EXTERNAL FILMS [address] [place] [id number] Social History Tobacco Use Types Packs/Day [...] st Contact Info) Description 04/29/2025 2:15 PM SPRINKLER WORKER Office Visit [facility] [address] [place] [phone] Rafael Casey MD [address] [place] [id number] documented as of this encounter Visit Diagnoses Not on filedocumented in this encounter Additional Health Concerns Infection Onset Date Last Indicated Resolved Time COVID-19 Confirmed 03/04/2023 03/04/2023 3 10:37 PM SPRINKLER WORKER Rule Out Respiratory 03/02/2024 03/02/2024 024 11:48 AM SPRINKLER WORKER Rule Out Respiratory 08/26/2024 08/26/2024 025 4:11 PM CDT documented as of this encounter Care Teams Broke Handler Relationship Specialty [place] [address] [facility] [address] [place] [address] PCP - General Family Medicine 08/26/24 documented as of this encounter
--- OUTSIDE RECORDS SUMMARY | 2025-03-24 20:40 | XMS_ITS | Encounter Summary ---
Author Organization [facility] and Its Subsidiaries and Affiliates Address [address] [address] [place] [address] Care Team Providers Care Technical Support Engineer Name Role Phone Brittny Kong MD Primary Care Provider [phone] Encounter Details Date Type Department Care Team (Late st Contact Info) Description 04/18/2023 Procedure Pass [facility] [address] [place] [address] Social History Tobacco Use Types Packs/Day Years Used Date Smoking Tobacco: Former Cigarettes 1 40 1 961 - 2001 Smokeless Tobacco: Never Alcohol Use Standard Drinks/Week Comments Not Currently 0 (1 standard drink = 0.6 oz pur e alcohol) [facility] Utilities Answer Date Recorded In the past 12 months has e [employer], gas, oil, or water [employer] threatened to shut off services in your [...] often do you attend chur ch or mu-ism services? Never 04/16/2023 Do you belong to any clubs o r organizations such as yarsani groups, unions, fraternal or athletic groups, or [...] and heating? Not hard at all 04/16/2023 [facility] - Occupational Stress [...] place to sleep or slept in a usp (including now)? No 04/16/2023 Comments No Sex and Gender Information Value Date Recorded Sex Assigned at Not on file Legal Sex Female 10:03 PM CDT Gender Identity Not on file Sexual Orientation Not on file documented as of this encounter Plan of Treatment Upcoming Encounters Date Type Department Care Team (Late st Contact Info) Description 04/29/2025 2:15 PM TECHNICAL ASSISTANT [facility] [address] [place] [phone] Rafael Casey MD [address] [facility] [address] [place] [address] documented as of this encounter Visit Diagnoses Not on filedocumented in this encounter Additional Health Concerns Infection Onset Date Last Indicated Resolved Time Rule Out Respiratory 03/02/2024 03/02/2024 024 11:48 AM TECHNICAL ASSISTANT Rule Out Respiratory 08/26/2024 08/26/2024 025 4:11 PM CDT documented as of this encounter Care Teams Technical Support Engineer Relationship Specialty [place] [address] [facility] [address] [place] [address] PCP - General Family Medicine 08/26/24 documented as of this encounter
--- OUTSIDE RECORDS SUMMARY | 2025-03-24 20:40 | XMS_ITS | Clinical Summary ---
Author Organization [facility] Address [address] [place] [address] Phone Care Team Providers Care Stock Pitcher Name Role Phone Brittny Kong MD Primary Care Provider [phone] Allergies No known active allergies Medications HYDROcodone-arik taminophen (LORCET PLUS) 10-325 MG per tablet Take 1 tablet by mouth every 8 (eight) hours if needed for moderate pain Active Multiple Vitamin (multivitamin) tablet Take 1 tablet by mouth 1 (one) time each day Active OXYBUTYNIN CHLORIDE PO Take 10 mg by mouth 1 (one) time each day Active pantoprazole (PROTONIX) 40 MG EC tablet Take 40 mg by mouth 1 (one) time each day before breakfast Do not crush, chew, or split. Active polyethylene glycol (GLYCOLAX) 17 g packet Take 17 g by mouth 1 (one) time each day Active pravastatin (PRAVACHOL) 40 MG tablet Take 40 mg by mouth 1 (one) time each day Active tiZANidine (ZANAFLEX) 4 MG capsule Take 4 mg by mouth at bed time Active Cyanocobalamin (Vitamin B-12) [address] under the tongue Active furosemide (LASIX) 20 MG tablet Take 1 tablet by mouth 1 (one) time each day 1 Active fluticasone (FLONASE) 50 MCG/ACT nasal spray 1 (one) time each day 1 Active FLUoxetine (PROzac) 20 MG capsule 1 (one) time each day 1 Active albuterol HFA (PROVENTIL HFA;VENTOLIN HFA) 108 (90 Base) MCG/ACT inhaler INHALE 2 PUFFS EVERY 4 HOURS NEEDED FOR SHORTNESS OF BREATH OR WHEEZING 9 Active Acetaminophen 500 MG capsule if needed 8 Active aspirin (ST JOSE) 81 MG EC tablet Take 81 mg by mouth in the morning. 6 Active mirtazapine (REMERON) 30 MG tablet Take 30 mg by mouth in the morning. 1 Active calcium carbonate 1500 (600 Ca) MG tablet Take 600 mg by mouth in the morning. Active Cyanocobalamin [address] 2,500 mcg under the tongue 1 (one) time per week Active losartan (COZAAR) 50 MG tablet Take 1 tablet by mouth 1 (one) time each day 3 Active carvedilol (COREG) 6.25 MG tablet Take 6.25 mg by mouth 1 (one) time each day Active Empagliflozin 10 MG tabletIndicatio ns:Chronic kidney disease stage 3A (HCC) Take 10 mg by mouth 1 (one) time each day in the morning 90 tablet 5 06/05/19 26 Active Empagliflozin 10 MG tabletIndicatio ns:Chronic kidney disease stage 3A (HCC) Take 10 mg by mouth 1 (one) time each day in the morning 30 tablet 3 5 03/07/20 25 Discontinu ed(Reorder (does not appear on AVS)) Active Problems Problem Noted Date Diagnosed Date Pyuria 01/07/2025 Acute nontraumatic kidney injury, not otherwise specified 01/07/2025 Hypokalemia 01/07/2025 Pulmonary nodules 01/07/2025 Secondary hyperparathyroidism of renal 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 Last DXA 11/2018 shows osteopenia. [...] Continue to follow up with Dr. Clifford. Allergic rhinitis 11/29/2016 Overview (10/20/2020): Last Assessment & Plan: Chronic, stable. Currently taking fluticasone 50mcg/spray, 2 sprays each nostril daily as needed. Continue to follow up with Dr. Clifford. 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 Currently taking albuterol 90mcg, 2 puffs every 4 hours as needed for shortness of breath or wheezing. Prescribed Trelegy but reports she is unable to afford at this time. Continue to follow up with Dr. Clifford. Essential hypertension 01/30/2015 Overview (10/20/2020): Last Assessment & Plan: History & Physical Her blood pressure is currently acceptable. Continue home regimen. Discharge Summary Follow-up Last Assessment & Plan: Chronic, stable. Currently taking aspirin 81mg, daily, [...] up with Dr. Casey and Dr. Clifford. Encounters Date Type Department Care Team Description [facility]/07[facility] [address] [place] [address] [place] [phone] Orin Andersen MA Chronic kidney disease stage 3A (HCC) 02/17/2025 Telephone [facility] [address] [place] [address] [place] [phone] Anju Bhandari LPN 02/01/2025 Orders Only [facility] [address], [place] [address] [place] [phone] Imelda Mello MA Chronic kidney disease stage 3A (HCC) (Primary Dx); Pyuria 01/28/2025 2:30 PM CDT Office Visit [facility] [address] [place] [phone] Ruthy Razo, METAL ORGAN PIPE MAKER-C Acute nontraumatic kidney injury, not otherwise specified (HCC) (Primary Dx); Anemia, not otherwise specified; Chronic diastolic congestive heart failure (HCC); Chronic kidney disease stage 3A (HCC); Essential hypertension; Recurrent urinary tract infection; Secondary hyperparathyroidism of renal origin (HCC) 01/17/2025 Documentation Only [facility] [address] [place] [address] [place] [phone] Luiz Levine NP-C 01/14/2025 Orders Only [facility] [address] [place] [phone] Luiz Levine, METAL ORGAN PIPE MAKER-C Recurrent urinary tract infection (Primary Dx); Hypokalemia 01/10/2025 Documentation Only [facility] [address], [place] [address] [place] [phone] Roxanne Morejon LPN 01/07/2025 2:00 PM CDT Office Visit [facility] [address] [place] [phone] Luiz Levine NP-C Chronic kidney disease stage 3A (HCC) (Primary Dx); Pyuria; Acute nontraumatic kidney injury, not otherwise specified (HCC); Recurrent urinary tract infection; Hypokalemia; Pulmonary nodules; Essential hypertension; Secondary hyperparathyroidism of renal origin (HCC) 01/07/2025 Orders Only [facility] [address], [place] [address] [place] [phone] Luiz Levine NP-C 12/30/2024 Orders Only [facility] [address], [place] [address] [place] [address] Eduin Esparza Chronic kidney disease stage 3A (HCC) (Primary Dx) from Last 3 Months Immunizations Immunization Administration Dates Next Due Influenza TIV (IM) 03/24/2013 Influenza, Quadrivalent, With Preservative 01/30 Moderna SARS-COV-2 07/20/2020,06/22/2020 Pneumococcal Conjugate 13-Valent 08/13/2017 Pneumococcal Polysaccharide 12/07/2019 Family History Medical History Relation Comments Heart disease Father Heart disease Sister Relation Status Comments Father Sister Social History Tobacco Use Types Packs/Day Years Used Date Smoking Tobacco: Former Smokeless Tobacco: Never Tobacco Cessation:Counseling Given: Not Answered Alcohol Use Standard Drinks/Week Comments Never 0 (1 standard drink = 0.6 oz pur e alcohol) Comments Unknown Sex and Gender Information Value Date Recorded Sex Assigned at Not on file Legal Sex Female 2:26 PM EDT Gender Identity Not on file Sexual Orientation Not on file Last Filed Vital Signs Vital Sign Reading Time Taken Comments Blood Pressure 120/60 02/01/2025 7:52 AM CDT Rig ht arm Pulse 62 01/28/2025 2:25 PM CDT Temperature - - Respiratory Rate - - Oxygen Saturation - - Inhaled Oxygen Concentration - - Weight 99.3 kg (219 lb) 01/28/2025 2:25 PM CDT Height 170.2 cm (5' 7 ) 01/28/2025 2:25 PM CDT Body Mass Index 34.3 01/28/2025 2:25 PM CDT Plan of Treatment Upcoming Encounters Date Type Department Care Team (Late st Contact Info) Description 07/29/2025 2:00 PM CDT Office Visit [facility] [address], [address] [place] [phone] Blake Kwan MD [address], [place] [address] [place] [phone] Health Maintenance Due Date Last Done Comments Influenza Vaccine (#1) 2024 5, 03/24/2013 Pneumococcal Vaccine: 50+ Years Completed 12/07/2019, 08/13/2017 Hepatitis B Vaccine Aged Out No longe r eligible based on patient's age to complete this topic Procedures Procedure Name Priority Date/Time Associated Diagnosis Comments URINE CULTURE Routine 02/11/2025 11:43 AM CDT Chronic kidney disease stage 3A (HCC) Pyuria RESULT Routine 02/11/2025 11:43 AM CDT CBC Routine 01/21/2025 1:25 PM CDT RENAL FUNCTION PANEL Routine 01/21/2025 1:25 PM CDT Hypokalemia URINALYSIS WITH MICROSCOPIC Routine 01/21/2025 1:25 PM CDT Pyuria MICROSCOPIC EXAMINATION - DO NOT USE Routine 01/21/2025 1:25 PM CDT PHOSPHATE ( PHOSPHORUS) Routine 01/14/2025 3:30 PM CDT MAGNESIUM Routine 01/14/2025 3:30 PM CDT Hypokalemia URINALYSIS WITH MICROSCOPIC Routine 01/07/2025 1:51 PM CDT MICROSCOPIC EXAMINATION - DO NOT USE Routine 01/07/2025 1:51 PM CDT URINE CULTURE Routine 01/07/2025 1:50 PM CDT Pyuria RESULT Routine 01/07/2025 1:50 PM CDT VITAMIN D 25 HYDROXY Routine 01/04/2025 1:31 PM CDT Chronic kidney disease stage 3A (HCC) PTH, INTACT Routine 01/04/2025 1:31 PM CDT Chronic kidney disease stage 3A (HCC) URINALYSIS WITH MICROSCOPIC Routine 01/04/2025 1:31 PM CDT Chronic kidney disease stage 3A (HCC) RENAL FUNCTION PANEL Routine 01/04/2025 1:31 PM CDT Chronic kidney disease stage 3A (HCC) CBC Routine 01/04/2025 1:31 PM CDT Chronic kidney disease stage 3A (HCC) MICROSCOPIC EXAMINATION - DO NOT USE Routine 01/04/2025 1:31 PM CDT from Last 3 Months Results * Result (02/11/2025 11:43 AM CDT) Only the most recent of2 resultswithin the time period is included. Result Comment Shena Almazan Comment: Culture shows less than 10,000 colony forming units of bacteria per milliliter of urine. This colony count is not generally considered to be clinically significant. 02/11/2025 11:4 3 AM CDT 02/11/2025 11:00 PM CDT us Ruthy [facility] LAB MICROBIOLOGY - GENERAL OR DERABLES Final Result [facility] Shena Almazan [address] [place] [phone] * Urine Culture (02/11/2025 11:43 AM CDT) Only the most recent of2 resultswithin the time period is included. Culture Result, Urine Final report [facility] Urine Urine specimen obtained by clean catch procedure / Unknown 02/11/2025 11:43 AM CDT 02/11/2025 11:00 PM CDT Comment: Ruthy [facility] URINE ORDERABLES Final Re sult [facility] [address] [place] [address] * (ABNORMAL) Microscopic Examination (01/21/2025 1:25 PM CDT) Only the most recent of3 resultswithin the time period is included. Pathologist [facility] WBC, Urine 0-5 0 - 5 /hpf [facility] [place] RBC, Urine None seen 0 - 2 /hpf [facility] Squamous Epithelial, Urine 0-10 0 - 10 /hpf [facility] Casts None seen None seen /lpf [facility] Bacteria, Urine Moderate(A ) None seen/Few [facility] 01/21/2025 1:25 PM CDT 01/20/2025 11:00 PM CDT us Blake Kwan MD LAB MICROBIOLOGY - GENERAL ORDER INDIRA Final Result [facility] [address] [place] [address] * (ABNORMAL) Urinalysis with microscopic (01/21/2025 1:25 PM CDT) Only the most recent of3 resultswithin the time period is included. Pathologist [facility] Specific [place], Urine 1.007 1.005 - 1.030 [facility] pH Urine 6.5 5.0 - 7.5 [facility] Color, Urine Yellow Yellow [facility] Appearance Urine Clear Clear Lab [facility] [place] WBC Esterase Urine 2+(A) Negative [facility] [place] Protein, Ur Negative Negative/Tr arik [facility] Glucose, Ur Negative Negative [facility] Ketones, Urine Negative Negative [facility] [place] Blood Urine Negative Negative [facility] Bilirubin Urine Negative Negative [facility] [place] Urobilinogen Urine 0.2 0.2 - 1.0 mg/dL [facility] Nitrite, Urine Positive(A) Negative [facility] Microscopic Examination See below: [facility] Comment:Microscopic was curly cated and was performed. Urine Urine specimen obtained by clean catch procedure / Unknown 01/21/2025 1:25 PM CDT 01/20/2025 11:00 PM CDT us Luiz Levine NP-Yvan LAB URINE ORDERABLES Final Re sult [facility] [address] [place] [address] * (ABNORMAL) CBC (01/21/2025 1:25 PM CDT) Only the most recent of2 resultswithin the time period is included. WBC 8.7 3.4 - 10.8 x10E3/uL [facility] RBC 4.11 3.77 - 5.28 x10E6/uL [facility] Hemoglobin 11.4 11.1 - 15.9 g/dL [facility] Hematocrit 37.0 34.0 - 46.6 % [facility] MCV 90 79 - 97 fL [facility] MCH 27.7 26.6 - 33.0 pg [facility] MCHC 30.8(L) 31.5 - 35.7 g/dL [facility] RDW 13.0 11.7 - 15.4 % [facility] Platelets 436 150 - 450 x10E3/uL [facility] 01/21/2025 1:25 PM CDT 01/20/2025 11:00 PM CDT us Blake Kwan MD LAB BLOOD ORDERABLES Final Resul t [facility] [address] [place] [address] * (ABNORMAL) Renal Function Panel (01/21/2025 1:25 PM CDT) Only the most recent of2 resultswithin the time period is included. Glucose 119(H) 70 - 99 mg/dL [facility] BUN 12 8 - 27 mg/dL [facility] Creatinine 1.17(H) 0.57 - 1.00 mg/dL [facility] eGFR CKD-EPI CR 2020 47(L) >59 mL/min/1.7 3 [facility] BUN/Creatinine Ratio 10(L) 12 - 28 [facility] Sodium 141 134 - 144 mmol/L [facility] Potassium 4.7 3.5 - 5.2 mmol/L [facility] Chloride 102 96 - 106 mmol/L [facility] Bicarbonate (CO2) 25 20 - 29 mmol/L [facility] Calcium 9.4 8.7 - 10.3 mg/dL [facility] Albumin 3.7(L) 3.8 - 4.8 g/dL [facility] Phosphorus 3.0 3.0 - 4.3 mg/dL [facility] Blood Venous blood / Unknown 01/21/2025 1:25 PM CDT 01/20/2025 11:00 PM CDT Destineyleticia Abner METAL [employer] PIPE MAKER-C LAB BLOOD ORDERABLES Final Re sult Performing Organization Address City/[facility]/ZIP Co de Phone Number [facility] [address] [place] [address] * Phosphorus (01/14/2025 3:30 PM CDT) Phosphorus 3.4 3.0 - 4.3 mg/dL [facility] 01/14/2025 3:30 PM CDT 01/13/2025 11:00 PM CDT Destineyleticia Mccannis METAL [employer]GAN PIPE MAKER-C LAB BLOOD ORDERABLES Final Re sult Performing Organization Address [facility] Co de Phone Number [facility] [address] [place] [address] * Magnesium (01/14/2025 3:30 PM CDT) Magnesium 2.3 1.6 - 2.3 mg/dL [facility] Blood Venous blood / Unknown 01/14/2025 3:30 PM CDT 01/13/2025 11:00 PM CDT Destineya Abner METAL [employer] PIPE MAKER-C LAB BLOOD ORDERABLES Final Re sult Performing Organization Address City/[facility]/ZIP Co de Phone Number [facility] [address] [place] [address] * Vitamin D 25 Hydroxy (01/04/2025 1:31 PM CDT) Vitamin D, 25-OH, Total 38.3 30.0 - 100.0 ng/mL [facility] Comment: Vitamin D deficiency has been defined by the [place] of [employer] and an Endocrine Society practice guideline as a level of serum 25-OH vitamin D less than 20 ng/mL (1,2). The Endocrine Society went on to further define vitamin D insufficiency as a level between 21 and 29 ng/mL (2). 1. IOM ([place] of Medicine). 2010. Dietary reference intakes for calcium and D. [place]: The National Academies Press. 2. Ramin MF, Humberto CADET, Chidi MCNALLY, et al. Evaluation, treatment, and prevention of vitamin D deficiency: an Endocrine Society clinical practice guideline. JCEM. 2010; 96(7):1911-30. Blood Venous blood / Unknown 01/04/2025 1:31 PM CDT 01/03/2025 11:00 PM CDT us Blake Kwan MD LAB BLOOD ORDERABLES Final Resul t Performing Organization Address City/[facility]/ZIP Co de Phone Number [facility] [address] [place] [address] * (ABNORMAL) PTH, Intact (01/04/2025 1:31 PM CDT) PTH 114(H) 15 - 65 pg/mL [facility] Blood Venous blood / Unknown 01/04/2025 1:31 PM CDT 01/03/2025 11:00 PM CDT Blake Kwan MD LAB BLOOD ORDERABLES Final Resul t Performing Organization Address City/[facility]/ZIP Co de Phone Number [facility] [address] [place] [address] from Last 3 Months Insurance [facility] Medicare Care Teams Stock Pitcher Relationship Specialty [place] [address] [facility] [address] [place] [address] PCP - General Family Medicine 08/13/24
--- OUTSIDE RECORDS SUMMARY | 2025-03-24 20:40 | XMS_ITS | Encounter Summary ---
Author Organization Nicole Charlottemarie [facility] and Its Subsidiaries and Affiliates Address [address] [address] [place] [address] Care Team Providers Care Animal Pathology Teacher Name Role Phone Brittny Kong MD Primary Care Provider [phone] Encounter Details Date Type Department Care Team (Late st Contact Info) Description 03/24/2023 Procedure Pass [facility] [address] [facility] [address] [place] [address] Social History Tobacco [...] st Contact Info) Description 04/29/2025 2:15 PM CUSTODY ASSISTANT Office Visit [facility] [address] [facility] [address] [place] [phone] Rafael Casey MD [address] [place] [address] documented as of this encounter Visit Diagnoses Not on filedocumented in this encounter Additional Health Concerns Infection Onset Date Last Indicated Resolved Time COVID-19 Confirmed 03/04/2023 03/04/2023 3 10:37 PM CUSTODY ASSISTANT Rule Out Respiratory 03/02/2024 03/02/2024 024 11:48 AM CUSTODY ASSISTANT Rule Out Respiratory 08/26/2024 08/26/2024 025 4:11 PM CDT documented as of this encounter Care Teams Animal Pathology Teacher Relationship Specialty [place] [address] [facility] [address] [place] [address] PCP - General Family Medicine 08/26/24 documented as of this encounter
--- OUTSIDE RECORDS SUMMARY | 2025-03-24 20:40 | XMS_ITS | Encounter Summary ---
Author Organization Nicole [facility] and [facility] Subsidiaries and Affiliates Address [address] [address] [place] [address] Care Team Providers Care Airport Manager Name Role Phone Brittny Kong MD Primary Care Provider [phone] Encounter Details Date Type Department Care Team (Late st Contact Info) Description 06/27/2015 Hospital FM CONVERSION ENCOUNTER [address] [place] [address] Social History Tobacco Use [...] Contact Info) Description 04/29/2025 2:15 PM MANAGER PERFORMANCE Office Visit [facility] [address] [place] [phone] Rafael Casey MD [address] [place] [phone] documented as of this encounter Procedures Procedure Name Priority Date/Time Associated Diagnosis Comments CTA CHEST PE PROTOCOL Routine 06/27/2015 12:02 AM MANAGER PERFORMANCE documented in this encounter Results * CTA Chest PE Protocol (06/27/2015 12:02 AM MANAGER PERFORMANCE) Anatomical Region Laterality Modality Computed Tomogra phy 06/27/2015 12:0 2 AM MANAGER PERFORMANCE Narrative 06/27/2015 12:57 AM MANAGER PERFORMANCE CTA Chest w/wo IV Contrast CLINICAL HISTORY: [...] Signed Date/Time: 27-JUN-2015 00:54 us Radiologist [facility] IM CT ORDERABLES Final Resu lt documented in this encounter Visit Diagnoses Not on filedocumented in this encounter Additional Health Concerns Infection Onset Date Last Indicated Resolved Time COVID-19 Confirmed 03/04/2023 03/04/2023 3 10:37 PM MANAGER PERFORMANCE Rule Out Respiratory 03/02/2024 03/02/2024 024 11:48 AM MANAGER PERFORMANCE Rule Out Respiratory 08/26/2024 08/26/2024 025 4:11 PM CDT documented as of this encounter Care Teams Airport Manager Relationship Specialty [place] [address] [facility] [address] [place] [address] PCP - General Family Medicine 08/26/24 documented as of this encounter
--- OUTSIDE RECORDS SUMMARY | 2025-03-24 20:40 | XMS_ITS | Encounter Summary ---
Author Organization Nicole [facility] and Its Subsidiaries and Affiliates Address [address] [address] [place] [address] Care Team Providers Care Fleet Service Manager Name Role Phone Brittny Kong MD Primary Care Provider [phone] Encounter Details Date Type Department Care Team (Late st Contact Info) Description 06/26/2023 Auto-Released Order [facility] [address] [place] [address] Chiqui Miller PA [address] [place], [place] [id number] Essential hypertension Social History Tobacco Use Types Packs/Day Years Used Date Smoking Tobacco: Former Cigarettes 1 40 1 961 - 2001 Smokeless Tobacco: Never Alcohol Use Standard Drinks/Week Comments Not Currently 0 (1 standard drink = 0.6 oz pur e alcohol) [facility] Utilities Answer Date Recorded In the [...] How often do you attend chur or alevism services? Never 04/16/2023 Do you belong to any clubs o r organizations such as rastafarian groups, unions, fraternal or athletic groups, or [...] and heating? Not hard at all 04/16/2023 [facility] [place] [facility] Occupat ional Health - Occupational Stress [...] st Contact Info) Description 04/29/2025 2:15 PM PUBLIC HEALTH MICROBIOLOGIST Office Visit [facility] [address] [place] [address] Rafael Casey MD [address] [facility] [address] [place] [address] documented as of this encounter Visit Diagnoses Diagnosis Essential hypertension Unspecified essential hypertension documented in this encounter Additional Health Concerns Infection Onset Date Last Indicated Resolved Time Rule Out Respiratory 03/02/2024 03/02/2024 024 11:48 AM PUBLIC HEALTH MICROBIOLOGIST Rule Out Respiratory 08/26/2024 08/26/2024 025 4:11 PM CDT documented as of this encounter Care Teams Fleet Service Manager Relationship Specialty [place] [address] [facility] [address] [place] [address] PCP - General Family Medicine 08/26/24 documented as of this encounter
--- OUTSIDE RECORDS SUMMARY | 2025-03-24 20:41 | XMS_ITS | Encounter Summary ---
Author Organization Nicole bensons of [facility] and Its Subsidiaries and Affiliates Address [address] [address] [place] [address] Care Team Providers Care Business Executive Name Role Phone Brittny Kong MD Primary Care Provider [phone] Encounter Details Date Type Department Care Team (Late st Contact Info) Description 01/05/2019 Procedure Pass [facility] [address] [place] [address] Social History Tobacco Use Types Packs/Day [...] st Contact Info) Description 04/29/2025 2:15 PM COMMISSION ASSOCIATE Office Visit [facility] [address] [facility] [address] [place] [address] Rafael Casey MD [address] [place] [address] documented as of this encounter Visit Diagnoses Not on filedocumented in this encounter Additional Health Concerns Infection Onset Date Last Indicated Resolved Time COVID-19 Confirmed 03/04/2023 03/04/2023 3 10:37 PM COMMISSION ASSOCIATE Rule Out Respiratory 03/02/2024 03/02/2024 024 11:48 AM COMMISSION ASSOCIATE Rule Out Respiratory 08/26/2024 08/26/2024 025 4:11 PM CDT documented as of this encounter Care Teams Business Executive Relationship Specialty [place] [address] [facility] [address] [place] [address] PCP - General Family Medicine 08/26/24 documented as of this encounter
--- OUTSIDE RECORDS SUMMARY | 2025-03-24 20:41 | XMS_ITS | Encounter Summary ---
Author Organization [facility] and Its Subsidiaries and Affiliates Address [address] [address] [place] [address] Care Team Providers Care Credit Collections Specialist Name Role Phone Brittny Kong MD Primary Care Provider [phone] Encounter Details Date Type Department Care Team (Late st Contact Info) Description 01/27/2020 Transcribe Orders [facility] [address] [place] [address] Venessa Barcenas, EMILEE [address] [facility] [address] [place] [address] Screening mammogram, encounter for (Primary Dx) Social History Tobacco Use Types [...] st Contact Info) Description 04/29/2025 2:15 PM FRENCH INSTRUCTOR Office Visit [place] [facility] [address] [place] [address] Rafael Casey MD [address] [place] [address] documented as of this encounter Results * MM Screening Mammogram Bilateral (02/10/2020 11:53 AM CDT) Anatomical Region Laterality Modality Breast Bilateral Mammography Impressions 02/10/2020 12:24 PM CDT Birads Category: 2 - Benign finding - negative. One year follow up recommended. 0 - additional imaging evaluation and/or comparison to prior mammograms is needed 1 - Negative mammogram. 2 - Benign [...] patient to schedule their next mammogram. Narrative 02/10/2020 12:24 PM CDT MM SCREENING MAMMOGRAM BILATERAL CLINICAL HISTORY: Screening mammogram. Dx: Breast cancer screening [Z12.39 (ICD-10-CM)] Pacs merged reason for exam: Z12.31:Encounter for screening mammogram for malignant neoplasm of breast COMPARISON: March 06, 2015, November 14, 2016, December 14, 2018 TECHNIQUE: Bilateral digital screening mammography was obtained, including craniocaudal and mediolateral oblique views. R2 computer-aided detection software was utilized in the interpretation of this examination. FINDINGS: The parenchyma of the breasts is composed of scattered fibroglandular densities. There is no evidence of new suspicious mass or suspicious microcalcifications. Stable right breast nodule.Benign breast calcifications. july Swapna HEBERT IMG MAMMOGRAPHY ORDERABLES F inal Result documented in this encounter Visit Diagnoses Diagnosis Screening mammogram, encounter for- Primary Screening mammogram, encounter for documented in this encounter Additional Health Concerns Infection Onset Date Last Indicated Resolved Time COVID-19 Confirmed 03/04/2023 03/04/2023 3 10:37 PM FRENCH INSTRUCTOR Rule Out Respiratory 03/02/2024 03/02/2024 024 11:48 AM FRENCH INSTRUCTOR Rule Out Respiratory 08/26/2024 08/26/2024 025 4:11 PM CDT documented as of this encounter Care Teams Credit Collections Specialist Relationship Specialty [place] [address] [facility] [address] [place] [address] PCP - General Family Medicine 08/26/24 documented as of this encounter
--- OUTSIDE RECORDS SUMMARY | 2025-03-24 20:41 | XMS_ITS | Encounter Summary ---
Author Organization [facility] and Its Subsidiaries and Affiliates Address [address] [address] [place] [address] Care Team Providers Care Concrete Stone Finishing Supervisor Name Role Phone Brittny Kong MD Primary Care Provider [phone] Encounter Details Date Type Department Care Team (Late st Contact Info) Description 12/16/2018 Procedure Pass [facility] - EXTERNAL FILMS [address] [...] st Contact Info) Description 04/29/2025 2:15 PM SIZE TESTER Office Visit [place] [facility] [address] [place] [phone] Rafael Casey MD [address] [facility] [address] [place] [id number] documented as of this encounter Visit Diagnoses Not on filedocumented in this encounter Additional Health Concerns Infection Onset Date Last Indicated Resolved Time COVID-19 Confirmed 03/04/2023 03/04/2023 3 10:37 PM SIZE TESTER Rule Out Respiratory 03/02/2024 03/02/2024 024 11:48 AM SIZE TESTER Rule Out Respiratory 08/26/2024 08/26/2024 025 4:11 PM CDT documented as of this encounter Care Teams Concrete Stone Finishing Supervisor Relationship Specialty [place] [address] [facility] [address] [place] [address] PCP - General Family Medicine 08/26/24 documented as of this encounter
--- OUTSIDE RECORDS SUMMARY | 2025-03-24 20:41 | XMS_ITS | Encounter Summary ---
Author Organization Nicole [place] [facility] and Its Subsidiaries and Affiliates Address [address] [address] [place] [address] Care Team Providers Care Treatment Specialist Name Role Phone Brittny Kong MD Primary Care Provider [phone] Encounter Details Date Type Department Care Team (Late st Contact Info) Description 10/16/2018 Procedure Pass [facility] [address] [place] [address] Social History Tobacco Use Types Packs/Day Years [...] st Contact Info) Description 04/29/2025 2:15 PM CLINICAL PROJECT MANAGER Office Visit [place] [facility] [address] [place] [address] Rafael Casey MD [address] [place] [address] [place] [address] documented as of this encounter Visit Diagnoses Not on filedocumented in this encounter Additional Health Concerns Infection Onset Date Last Indicated Resolved Time COVID-19 Confirmed 03/04/2023 03/04/2023 3 10:37 PM CLINICAL PROJECT MANAGER Rule Out Respiratory 03/02/2024 03/02/2024 024 11:48 AM CLINICAL PROJECT MANAGER Rule Out Respiratory 08/26/2024 08/26/2024 025 4:11 PM CDT documented as of this encounter Care Teams Treatment Specialist Relationship Specialty [place] [address] [facility] [address] [place] [address] PCP - General Family Medicine 08/26/24 documented as of this encounter
--- OUTSIDE RECORDS SUMMARY | 2025-03-24 20:41 | XMS_ITS | Encounter Summary ---
Author Organization [facility] [place] [facility] and Its Subsidiaries and Affiliates Address [address] [address] [place] [address] Care Team Providers Care Reversing Mill Roller Name Role Phone Brittny Kong MD Primary Care Provider [phone] Encounter Details Date Type Department Care Team (Late st Contact Info) Description 08/10/2020 Telephone [facility] [address] [place] [address] Evie Campoverde RCS [address] [facility] [place] [address] Social History Tobacco Use Types Packs/Day Years [...] st Contact Info) Description 04/29/2025 2:15 PM WAREDRESSER Office Visit [facility] [address] [place] [address] Rafael Casey MD [address] [place] [address] [place] [address] documented as of this encounter Visit Diagnoses Not on filedocumented in this encounter Additional Health Concerns Infection Onset Date Last Indicated Resolved Time COVID-19 Confirmed 03/04/2023 03/04/2023 3 10:37 PM WAREDRESSER Rule Out Respiratory 03/02/2024 03/02/2024 024 11:48 AM WAREDRESSER Rule Out Respiratory 08/26/2024 08/26/2024 025 4:11 PM CDT documented as of this encounter Care Teams Reversing Mill Roller Relationship Specialty [place] [address] [facility] [address] [place] [address] PCP - General Family Medicine 08/26/24 documented as of this encounter
--- OUTSIDE RECORDS SUMMARY | 2025-03-24 20:41 | XMS_ITS | Encounter Summary ---
Author Organization Nicole [place] [facility] and Its Subsidiaries and Affiliates Address [address] [address] [place] [address] Care Team Providers Care Slot Operations Manager Name Role Phone Brittny Kong MD Primary Care Provider [phone] Encounter Details Date Type Department Care Team (Late st Contact Info) Description 09/21/2018 Transcribe Orders [facility] [address] [address] [place] [address] [facility] [address] [place] [address] Social History Tobacco Use Types Packs/Day Years [...] st Contact Info) Description 04/29/2025 2:15 PM REHABILITATION COUNSELOR Office Visit [facility] [address] [place] [address] Rafael Casey MD [address] [facility] [address] [place] [address] documented as of this encounter Visit Diagnoses Not on filedocumented in this encounter Additional Health Concerns Infection Onset Date Last Indicated Resolved Time COVID-19 Confirmed 03/04/2023 03/04/2023 3 10:37 PM REHABILITATION COUNSELOR Rule Out Respiratory 03/02/2024 03/02/2024 024 11:48 AM REHABILITATION COUNSELOR Rule Out Respiratory 08/26/2024 08/26/2024 025 4:11 PM CDT documented as of this encounter Care Teams Slot Operations Manager Relationship Specialty [place] [address] [facility] [address] [place] [address] PCP - General Family Medicine 08/26/24 documented as of this encounter
--- OUTSIDE RECORDS SUMMARY | 2025-03-24 20:41 | XMS_ITS | Encounter Summary ---
Author Organization [facility] and Its Subsidiaries and Affiliates Address [address] [address] Lindsay Armstrong [place] [address] Care Team Providers Care Datacap Developer Name Role Phone Brittny Kong MD Primary Care Provider [phone] Reason for Referral * Diagnostic Medical (Routine) - Closed Specialty Diagnoses / Procedures Referred By Gabriel t Referred To Contact Diagnoses Asymptomatic postmenopausal status (age-related) (natural) Procedures XR Dexa Central Sarah Clifford MD Phone: tel: fax: [facility] [place] [address] Phone: tel: Referral ID Status Reason Start Date Expiration Date Visits Re quested Visits Authorized [id number] Closed 11/12/2016 05/11/2017 1 1 Encounter Details Date Type Department Care Team (Latest Contact Info) Description 11/12/2016 Transcribe [facility] [address] [place] [address] [place] [address] [facility] [address] [place] [address] Asymptomatic postmenopausal status (age-related) (natural) (Primary Dx) Social History Tobacco Use Types [...] st Contact Info) Description 04/29/2025 2:15 PM PLANT CONTROLLER Office Visit [place] [facility] [address] [place] [address] Rafael Casey MD [address] [facility] [address] [place] [address] documented as of this encounter Results * XR Dexa Central (11/18/2016 2:05 PM CDT) Anatomical Region Laterality Modality Other Impressions 11/18/2016 7:49 PM CDT 1. No evidence of osteopenia or osteoporosis in the lumbar spine, L1-L4 2. Osteoporosis in the right hip 3. Osteopenia in the left hip NOTE: World Health Organization (WHO) criteria for defining osteoporosis is a young adult T-score -2.5 or below. Further studies and extrapolations of WHO criteria [...] hyperparathyroidism, Dilantin, multiple myeloma, and hypogonadism. Narrative 11/18/2016 7:49 PM CDT ABSORPTIOMETRY BONE MINERAL DENSITY STUDY CLINICAL HISTORY: Postmenopausal status - Z78.0 COMPARISON STUDY: None. Total bone mineral density was determined over the lumbar spine, L1-L4, and both hips. The results of the current test can be summarized in the following table: REGION AP SPINE L1-L4 BMD (g/cm2) = 1.075; T-score = 0.3; Z-score = 2.5; WHO classification = Normal RIGHT HIP NECK: BMD (g/cm2) = 0.563; T-score = -2.6; Z-score = -0.7 TOTAL: BMD (g/cm2) = 0.680; T-score = -2.1; Z-score = -0.6; WHO classification = Osteoporosis LEFT HIP NECK: BMD (g/cm2) = 0.591; T-score = -2.3; Z-score = -0.4 TOTAL: BMD (g/cm2) = 0.748; T-score = -1.6; Z-score = 0.0; WHO classification = Osteopenia FRAX ASSESSMENT: Patient's 10-year risk of any fracture is 15%. Patient's 10-year risk of hip fracture is 4.1%. Procedure Note Papa Kaminski MD - 11/18/2016 ABSORPTIOMETRY BONE MINERAL DENSITY STUDY CLINICAL HISTORY: Postmenopausal status - Z78.0 COMPARISON STUDY: None. Total bone mineral density was determined over the lumbar spine, L1-L4,and both hips. The results of the current test can be summarized in the followingtable: REGION AP SPINE L1-L4 BMD (g/cm2) = 1.075; T-score = 0.3; Z-score = 2.5; WHO classification =Normal RIGHT HIP NECK: BMD (g/cm2) = 0.563; T-score = -2.6; Z-score = -0.7 TOTAL: BMD (g/cm2) = 0.680; T-score = -2.1; Z-score = -0.6; WHOclassification = Osteoporosis LEFT HIP NECK: BMD (g/cm2) = 0.591; T-score = -2.3; Z-score = -0.4 TOTAL: BMD (g/cm2) = 0.748; T-score = -1.6; Z-score = 0.0; WHOclassification = Osteopenia FRAX ASSESSMENT: Patient's 10-year risk of any fracture is 15%. Patient's 10-year risk of hip fracture is 4.1%. IMPRESSION: 1. No evidence of osteopenia or osteoporosis in the lumbar spine, L1-L4 2. Osteoporosis in the right hip 3. Osteopenia in the left hip NOTE: World Health Organization (WHO) criteria for defining osteoporosisis a young adult T-score -2.5 or below. Further studies andextrapolations of WHO criteria have been applied to other osseous sitesand demographic groups including men but not to pre-menopausal women.Overall bone strength is a combination of BMD and bone architecture.Current DEXA's only provide BMD information; therefore clinical evaluationof the patient and their risk factors remains an important factor indetecting osteoporosis. Risk factors include: fractures, loss of height,family history, smoking, and corticosteroid use. Secondary causes of lowBMD include; idiopathic, alcoholism, hyperparathyroidism, Dilantin,multiple myeloma, and hypogonadism. Sarah Clifford MD IMG DEXA ORDERABLES Final R esult documented in this encounter Visit Diagnoses Diagnosis Asymptomatic postmenopausal status (age-related) (natural)- Primary Asymptomatic postmenopausal status (age-related) (natural) documented in this encounter Additional Health Concerns Infection Onset Date Last Indicated Resolved Time COVID-19 Confirmed 03/04/2023 03/04/2023 3 10:37 PM PLANT CONTROLLER Rule Out Respiratory 03/02/2024 03/02/2024 024 11:48 AM PLANT CONTROLLER Rule Out Respiratory 08/26/2024 08/26/2024 025 4:11 PM CDT documented as of this encounter Care Teams Datacap Developer Relationship Specialty [place] [address] [facility] [address] [place] [address] PCP - General Family Medicine 08/26/24 documented as of this encounter
--- OUTSIDE RECORDS SUMMARY | 2025-03-24 20:41 | XMS_ITS | Encounter Summary ---
Author Organization Nicole Dikemarie mancera of [facility] and Its Subsidiaries and Affiliates Address [address] [address] [place] Armstrong[place] [address] Care Team Providers Care Chief Security And Safety Officer Name Role Phone Brittny Kong MD Primary Care Provider [phone] Reason for Referral * Diagnostic Medical (Routine) - Closed Specialty Diagnoses / Procedures Referred By Gabriel frey Referred To Contact Radiology Diagnoses Menopause Procedures XR Dexa Central Sarah Clifford MD Phone: tel: fax: Referral ID Status Reason Start Date Expiration Date Visits Re quested Visits Authorized [id number] Closed 09/21/2018 09/21/2019 1 1 Encounter Details Date Type Department Care Team (Latest Contact Info) Description 09/21/2018 Transcribe Orders [facility] [address] [place] [address] [place] [address] [facility] [address] [place] [address] Menopause (Primary Dx); Breast screening Social History Tobacco Use Types Packs/Day [...] st Contact Info) Description 04/29/2025 2:15 PM TOY STUFFER Office Visit [place] [facility] [address] [place] [phone] Rafael Casey MD [address] [facility] [address] [place] [id number] documented as of this encounter Results * XR Dexa Central (12/14/2018 11:24 AM CDT) Anatomical Region Laterality Modality Other Impressions 12/15/2018 [...] Dilantin, multiple myeloma, andhypogonadism. Sarah Clifford MD [facility] DEXA ORDERABLES Final R esult * MM Screening Mammogram Bilateral (12/14/2018 11:15 AM CDT) Anatomical Region Laterality Modality Breast Bilateral Mammography Impressions 12/16/2018 1:58 PM CDT No mammographic evidence of malignancy in either breast. BI-RADS category: 1: Negative. RECOMMENDATION: Recommend annual screening mammography in one year, unless clinically indicated otherwise. COMMENT: A negative report should not delay [...] the patient to schedule their next mammogram. FEDERAL REGULATIONS REQUIRE THE REFERRING PHYSICIAN TO REVIEW WITH THE PATIENT: (1) ALL FINDINGS OF RADIOLOGIC MAMMOGRAPHY PROCEDURES; (2) SUBSEQUENT STEPS OF TREATMENT, IF RESULTS ARE POSITIVE; (3) IMPORTANCE OF MAMMOGRAPHY TO ONGOING HEALTH; (4) PATIENT RESPONSIBILITY TO SHARE WITH ANY NEW PHYSICIAN OR MAMMOGRAPHIC PROVIDER THE DATE AND PLACE OF PREVIOUS MAMMOGRAM. Narrative 12/16/2018 1:58 PM CDT MM SCREENING MAMMOGRAM BILATERAL CLINICAL HISTORY: Screening mammogram. Dx: Breast cancer screening [Z12.39 (ICD-10-CM)] Pacs merged reason for exam: Z12.31:Encounter for screening mammogram for malignant neoplasm of breast COMPARISON: 11/14/2016, 03/06/2015 TECHNIQUE: Bilateral digital screening mammography was obtained, including craniocaudal and mediolateral oblique views. [employer] computer-aided detection software was utilized in the interpretation of this examination. FINDINGS: Breast composition:There are scattered areas of fibroglandular density. The parenchymal pattern is stable. There is no new mass, architectural distortion or suspicious calcifications seen in either breast. Saarh Clifford MD IMG MAMMOGRAPHY ORDERABLES Final Result documented in this encounter Visit Diagnoses Diagnosis Menopause- Primary Symptomatic menopausal or female climacteric states Breast screening Breast screening, unspecified Breast screening Breast screening, unspecified Menopause Symptomatic menopausal or female climacteric states documented in this encounter Additional Health Concerns Infection Onset Date Last Indicated Resolved Time COVID-19 Confirmed 03/04/2023 03/04/2023 3 10:37 PM TOY STUFFER Rule Out Respiratory 03/02/2024 03/02/2024 024 11:48 AM TOY STUFFER Rule Out Respiratory 08/26/2024 08/26/2024 025 4:11 PM CDT documented as of this encounter Care Teams Chief Security And Safety Officer Relationship Specialty [place] [address] [facility] [address] [place] [address] PCP - General Family Medicine 08/26/24 documented as of this encounter
--- OUTSIDE RECORDS SUMMARY | 2025-03-24 20:41 | XMS_ITS | Encounter Summary ---
Author Organization [facility] and Its Subsidiaries and Affiliates Address [address] [address] [place] [address] Care Team Providers Care Financial Writer Name Role Phone Brittny Kong MD Primary Care Provider [phone] Encounter Details Date Type Department Care Team (Late st Contact Info) Description 02/26/2023 Procedure Pass [facility] - EXTERNAL FILMS [address] [...] st Contact Info) Description 04/29/2025 2:15 PM DEPUTY SHERIFF LIEUTENANT Office Visit [place] [facility] [address] [place] [phone] Rafael Casey MD [address] [facility] [address] [place] [id number] documented as of this encounter Visit Diagnoses Not on filedocumented in this encounter Additional Health Concerns Infection Onset Date Last Indicated Resolved Time COVID-19 Confirmed 03/04/2023 03/04/2023 3 10:37 PM DEPUTY SHERIFF LIEUTENANT Rule Out Respiratory 03/02/2024 03/02/2024 024 11:48 AM DEPUTY SHERIFF LIEUTENANT Rule Out Respiratory 08/26/2024 08/26/2024 025 4:11 PM CDT documented as of this encounter Care Teams Financial Writer Relationship Specialty [place] [address] [facility] [address] [place] [address] PCP - General Family Medicine 08/26/24 documented as of this encounter
--- OUTSIDE RECORDS SUMMARY | 2025-03-24 20:41 | XMS_ITS | Encounter Summary ---
Author Organization Nicole [facility] [facility] and Its Subsidiaries and Affiliates Address [address] [address] [place] [address] Care Team Providers Care Technical Administrator Name Role Phone Brittny Kong MD Primary Care Provider [phone] Encounter Details Date Type Department Care Team (Late st Contact Info) Description 01/27/2020 Procedure Pass [facility] [address] [place] [id number] Social History Tobacco Use Types Packs/Day Years [...] st Contact Info) Description 04/29/2025 2:15 PM WORKING SECOND HAND Office Visit [place] [facility] [address] [place] [address] Rafael Casey MD [address] [place] [address] documented as of this encounter Visit Diagnoses Not on filedocumented in this encounter Additional Health Concerns Infection Onset Date Last Indicated Resolved Time COVID-19 Confirmed 03/04/2023 03/04/2023 3 10:37 PM WORKING SECOND HAND Rule Out Respiratory 03/02/2024 03/02/2024 024 11:48 AM WORKING SECOND HAND Rule Out Respiratory 08/26/2024 08/26/2024 025 4:11 PM CDT documented as of this encounter Care Teams Technical Administrator Relationship Specialty [place] [address] [facility] [address] [place] [address] PCP - General Family Medicine 08/26/24 documented as of this encounter
--- OUTSIDE RECORDS SUMMARY | 2025-03-24 20:41 | XMS_ITS | Encounter Summary ---
Author Organization [facility] and Its Subsidiaries and Affiliates Address [address] [address] Lindsay Armstrong[place]IA[place] [address] Care Team Providers Care Ortho Tech Name Role Phone Brittny Kong MD Primary Care Provider [phone] Encounter Details Date Type Department Care Team (Latest Contact Info) Description 02/27/2021 Transcribe Orders [facility] [address] [facility] [place] [address] [place] [address] [facility] [address] [place] [address] Visit for screening mammogram Social History Tobacco Use Types Packs/Day Years [...] st Contact Info) Description 04/29/2025 2:15 PM PROPERTY CONTROLLER Office Visit [place] [facility] [address] [place] [address] Rafeal Casey MD [address] [facility] [address] [place] [address] documented as of this encounter Results * MM Screening Mammogram Bilateral (04/25/2021 12:56 PM PROPERTY CONTROLLER) Anatomical Region Laterality Modality Breast Bilateral Mammography Impressions 04/25/2021 1:01 PM PROPERTY CONTROLLER No mammographic evidence of malignancy. No suspicious [...] their next mammogram. Narrative 04/25/2021 1:01 PM PROPERTY CONTROLLER EXAM: MM SCREENING MAMMOGRAM BILATERAL CLINICAL INDICATION: [...] microcalcifications, or architectural distortion. Sarah Clifford MD IMG MAMMOGRAPHY ORDERABLES Final Result documented in this encounter Visit Diagnoses Diagnosis Visit for screening mammogram Visit for screening mammogram documented in this encounter Additional Health Concerns Infection Onset Date Last Indicated Resolved Time COVID-19 Confirmed 03/04/2023 03/04/2023 10:37 PM PROPERTY CONTROLLER Rule Out Respiratory 03/02/2024 03/02/2024 024 11:48 AM PROPERTY CONTROLLER Rule Out Respiratory 08/26/2024 08/26/2024 025 4:11 PM CDT documented as of this encounter Care Teams Ortho Tech Relationship Specialty [place] [address] [facility] [address] [place] [address] PCP - General Family Medicine 08/26/24 documented as of this encounter
--- OUTSIDE RECORDS SUMMARY | 2025-03-24 20:41 | XMS_ITS | Encounter Summary ---
Author Organization [facility] and Its Subsidiaries and Affiliates Address [address] [address] [place] [address] Care Team Providers Care Personal Development Coach Name Role Phone Brittny Kong MD Primary Care Provider [phone] Reason for Referral * Diagnostic Medical (Routine) - Closed Specialty Diagnoses / Procedures Referred By Gabriel frey Referred To Contact Diagnoses Stage 3a chronic kidney disease (HCC) Procedures US Retroperitoneal Kidney US Retroperitoneal Kidney and Bladder Blake Kwan MD [address] [place] [address] Phone: tel: fax: [facility] [address] [facility] [place] [address] Phone: tel: fax: Referral ID Status Reason Start Date Expiration Date Visits Re quested Visits Authorized [id number] Closed 10/24/2020 10/24/2021 1 1 Encounter Details Date Type Department Care Team (Latest Contact Info) Description 10/24/2020 Transcribe Orders [facility] [address] [facility] [place] [id number] Blake Kwan MD [address] [place] [place] [address] Stage 3a chronic kidney disease (HCC) (Primary Dx) Social History Tobacco Use Types [...] Contact Info) Description 04/29/2025 2:15 PM DENTAL INTERN Office Visit [place] [facility] [address] [facility] [address] [place] [phone] Rafael Casey MD [address] [facility] [address] [place], [place] [address] documented as of this encounter Results * US Retroperitoneal Kidney (11/20/2020 8:51 AM [...] medical renal disease change. Blake Kwan MD [facility] US ORDERABLES Final Result documented in this encounter Visit Diagnoses Diagnosis Stage 3a chronic kidney disease (HCC)- Primary Stage 3a chronic kidney disease (HCC) documented in this encounter Additional Health Concerns Infection Onset Date Last Indicated Resolved Time COVID-19 Confirmed 03/04/2023 03/04/2023 3 10:37 PM DENTAL INTERN Rule Out Respiratory 03/02/2024 03/02/2024 024 11:48 AM DENTAL INTERN Rule Out Respiratory 08/26/2024 08/26/2024 025 4:11 PM CDT documented as of this encounter Care Teams Personal Development Coach Relationship Specialty [place] [address] [facility] [address] [place] [address] PCP - General Family Medicine 08/26/24 documented as of this encounter
--- OUTSIDE RECORDS SUMMARY | 2025-03-24 20:41 | XMS_ITS | Encounter Summary ---
Author Organization Nicole Lublinmarie s of [facility] and Its Subsidiaries and Affiliates Address [address] [address] [place] [address] Care Team Providers Care Pulp Mill Operator Name Role Phone Brittny Kong MD Primary Care Provider [phone] Encounter Details Date Type Department Care Team (Late st Contact Info) Description 11/12/2016 Procedure Pass [facility] [address] [place] [address] Social History Tobacco Use Types Packs/Day Years [...] st Contact Info) Description 04/29/2025 2:15 PM DROPPER TANK STORAGE [facility] [address] [place] [phone] Rafael Casey MD [address] [facility] [address] [place] [phone] documented as of this encounter Visit Diagnoses Not on filedocumented in this encounter Additional Health Concerns Infection Onset Date Last Indicated Resolved Time COVID-19 Confirmed 03/04/2023 03/04/2023 10:37 PM DROPPER TANK STORAGE Rule Out Respiratory 03/02/2024 03/02/2024 024 11:48 AM DROPPER TANK STORAGE Rule Out Respiratory 08/26/2024 08/26/2024 025 4:11 PM CDT documented as of this encounter Care Teams Pulp Mill Operator Relationship Specialty [place] [address] [facility] [address] [place] [address] PCP - General Family Medicine 08/26/24 documented as of this encounter
--- OUTSIDE RECORDS SUMMARY | 2025-03-24 20:41 | XMS_ITS | Encounter Summary ---
Author Organization Nicole [facility] and Its Subsidiaries and Affiliates Address [address] [address] [place] [address] Care Team Providers Care Tenterer Name Role Phone Brittny Kong MD Primary Care Provider [phone] Encounter Details Date Type Department Care Team (Late st Contact Info) Description 06/26/2015 Hospital FM CONVERSION ENCOUNTER [address] [...] st Contact Info) Description 04/29/2025 2:15 PM FREIGHT RECEIVER Office Visit [place] [facility] [address] [place] [address] Rafael Casey MD [address] [place] [address] documented as of this encounter Procedures Procedure Name Priority Date/Time Associated Diagnosis Comments XR CHEST 2 VIEW PA AND LATERAL Routine 06/26/2015 10:21 PM FREIGHT RECEIVER documented in this encounter Results * XR Chest 2 View PA and Lateral (06/26/2015 10:21 PM FREIGHT RECEIVER) Anatomical Region Laterality Modality Chest Radiographic Ninoska ging 06/26/2015 10:2 1 PM FREIGHT RECEIVER Narrative 06/27/2015 3:49 AM FREIGHT RECEIVER XR Chest EPA and Lateral 2V CLINICAL [...] Signed Date/Time: 27-JUN-2015 03:46 us Radiologist At [facility] DIAGNOSTIC IMAGING ORDER INDIRA Final Result documented in this encounter Visit Diagnoses Not on filedocumented in this encounter Additional Health Concerns Infection Onset Date Last Indicated Resolved Time COVID-19 Confirmed 03/04/2023 03/04/2023 3 10:37 PM FREIGHT RECEIVER Rule Out Respiratory 03/02/2024 03/02/2024 024 11:48 AM FREIGHT RECEIVER Rule Out Respiratory 08/26/2024 08/26/2024 025 4:11 PM CDT documented as of this encounter Care Teams Tenterer Relationship Specialty [place] [address] [facility] [address] [place] [address] PCP - General Family Medicine 08/26/24 documented as of this encounter
--- OUTSIDE RECORDS SUMMARY | 2025-03-24 20:41 | XMS_ITS | Encounter Summary ---
Author Organization Nicole Wolfforthmarie s of [facility] and Its Subsidiaries and Affiliates Address [address] [address] [place] [address] Care Team Providers Care Plastics Factory Worker Name Role Phone Brittny Kong MD Primary Care Provider [phone] Encounter Details Date Type Department Care Team (Late st Contact Info) Description 09/21/2018 Procedure Pass [facility] [address] [place] [address] Social History Tobacco Use Types Packs/Day Years [...] st Contact Info) Description 04/29/2025 2:15 PM STEEL ERECTING PUSHER Office Visit [place] [facility] [address] [place] [address] Rafael Casey MD [address] [facility] [address] [place] [address] documented as of this encounter Visit Diagnoses Not on filedocumented in this encounter Additional Health Concerns Infection Onset Date Last Indicated Resolved Time COVID-19 Confirmed 03/04/2023 03/04/2023 3 10:37 PM STEEL ERECTING PUSHER Rule Out Respiratory 03/02/2024 03/02/2024 024 11:48 AM STEEL ERECTING PUSHER Rule Out Respiratory 08/26/2024 08/26/2024 025 4:11 PM CDT documented as of this encounter Care Teams Plastics Factory Worker Relationship Specialty [place] [address] [facility] [address] [place] [address] PCP - General Family Medicine 08/26/24 documented as of this encounter
--- OUTSIDE RECORDS SUMMARY | 2025-03-24 20:41 | XMS_ITS | Encounter Summary ---
Author Organization Nicole mancera of [facility] and Its Subsidiaries and Affiliates Address [address] [address] [place] [address] Care Team Providers Care Project Buyer Name Role Phone Brittny Kong MD Primary Care Provider [phone] Encounter Details Date Type Department Care Team (Late st Contact Info) Description 12/31/2018 Procedure Pass [facility] [address] [place] [address] Social History Tobacco Use [...] st Contact Info) Description 04/29/2025 2:15 PM IMPROVEMENT SPEC Office Visit [facility] [address] [facility] [address] [place] [address] Rafael Casey MD [address] [place] [place] [address] documented as of this encounter Visit Diagnoses Not on filedocumented in this encounter Additional Health Concerns Infection Onset Date Last Indicated Resolved Time COVID-19 Confirmed 03/04/2023 03/04/2023 3 10:37 PM IMPROVEMENT SPEC Rule Out Respiratory 03/02/2024 03/02/2024 024 11:48 AM IMPROVEMENT SPEC Rule Out Respiratory 08/26/2024 08/26/2024 025 4:11 PM CDT documented as of this encounter Care Teams Project Buyer Relationship Specialty [place] [address] [facility] [address] [place] [address] PCP - General Family Medicine 08/26/24 documented as of this encounter
--- OUTSIDE RECORDS SUMMARY | 2025-03-24 20:41 | XMS_ITS | Encounter Summary ---
Author Organization Nicole [facility] of [facility] and Its Subsidiaries and Affiliates Address [address] [address] [place] [address] Care Team Providers Care Manufacturing Inspector Name Role Phone Brittny Kong MD Primary Care Provider [phone] Encounter Details Date Type Department Care Team (Late st Contact Info) Description 01/05/2019 Procedure Pass [facility] [address] [facility] [place] [address] Social History Tobacco [...] st Contact Info) Description 04/29/2025 2:15 PM INFORMATION CLERK AUTOMOBILE CLUB Office Visit [facility] [address] [facility] [address] [place] [address] Rafael Casey MD [address] [place] [address] [place] [address] documented as of this encounter Visit Diagnoses Not on filedocumented in this encounter Additional Health Concerns Infection Onset Date Last Indicated Resolved Time COVID-19 Confirmed 03/04/2023 03/04/2023 3 10:37 PM INFORMATION CLERK AUTOMOBILE CLUB Rule Out Respiratory 03/02/2024 03/02/2024 024 11:48 AM INFORMATION CLERK AUTOMOBILE CLUB Rule Out Respiratory 08/26/2024 08/26/2024 025 4:11 PM CDT documented as of this encounter Care Teams Manufacturing Inspector Relationship Specialty [place] [address] [facility] [address] [place] [address] PCP - General Family Medicine 08/26/24 documented as of this encounter
--- OUTSIDE RECORDS SUMMARY | 2025-03-24 20:41 | XMS_ITS | Encounter Summary ---
Author Organization Nicole [facility]cera of [facility] and Its Subsidiaries and Affiliates Address [address] [address] [place] [address] Care Team Providers Care Crane Hooker Name Role Phone Brittny Kong MD Primary Care Provider [phone] Encounter Details Date Type Department Care Team (Late st Contact Info) Description 12/31/2018 Procedure Pass [facility] [address] [facility] [place] [address] Social History Tobacco [...] st Contact Info) Description 04/29/2025 2:15 PM UTILITY PERSON Office Visit [facility] [address] [facility] [address] [place] [address] Rafael Casey MD [address] [place] [address] [place] [address] documented as of this encounter Visit Diagnoses Not on filedocumented in this encounter Additional Health Concerns Infection Onset Date Last Indicated Resolved Time COVID-19 Confirmed 03/04/2023 03/04/2023 3 10:37 PM UTILITY PERSON Rule Out Respiratory 03/02/2024 03/02/2024 024 11:48 AM UTILITY PERSON Rule Out Respiratory 08/26/2024 08/26/2024 025 4:11 PM CDT documented as of this encounter Care Teams Crane Hooker Relationship Specialty [place] [address] [facility] [address] [place] [address] PCP - General Family Medicine 08/26/24 documented as of this encounter
--- OUTSIDE RECORDS SUMMARY | 2025-03-24 20:41 | XMS_ITS | Encounter Summary ---
Author Organization Nicole Cherrymarie s of [facility] and Its Subsidiaries and Affiliates Address [address] [address] [place] [address] Care Team Providers Care Ash Collector Name Role Phone Brittny Kong MD Primary Care Provider [phone] Encounter Details Date Type Department Care Team (Late st Contact Info) Description 09/19/2016 Procedure Pass [facility] [address] [place] [address] Social History Tobacco Use Types Packs/Day Years [...] st Contact Info) Description 04/29/2025 2:15 PM BIOLOGICAL TECHNICIAN [facility] [address] [place] [phone] Rafael Casey MD [address] [facility] [address] [place] [address] documented as of this encounter Visit Diagnoses Not on filedocumented in this encounter Additional Health Concerns Infection Onset Date Last Indicated Resolved Time COVID-19 Confirmed 03/04/2023 03/04/2023 10:37 PM BIOLOGICAL TECHNICIAN Rule Out Respiratory 03/02/2024 03/02/2024 024 11:48 AM BIOLOGICAL TECHNICIAN Rule Out Respiratory 08/26/2024 08/26/2024 025 4:11 PM CDT documented as of this encounter Care Teams Ash Collector Relationship Specialty [place] [address] [facility] [address] [place] [address] PCP - General Family Medicine 08/26/24 documented as of this encounter
--- OUTSIDE RECORDS SUMMARY | 2025-03-24 20:41 | XMS_ITS | Encounter Summary ---
Author Organization Nicole Lormanmarie s of [facility] and Its Subsidiaries and Affiliates Address [address] [address] [place] [address] Care Team Providers Care Transformation Analyst Name Role Phone Brittny Kong MD Primary Care Provider [phone] Encounter Details Date Type Department Care Team (Late st Contact Info) Description 10/24/2020 Procedure Pass [facility] [address] [place] [id number] Social History Tobacco Use Types Packs/Day Years [...] st Contact Info) Description 04/29/2025 2:15 PM NETWORK OPERATIONS CENTER TECHNICIAN Office Visit [place] [facility] [address] [place] [address] Rafael Casey MD [address] [place] [address] [place] [address] documented as of this encounter Visit Diagnoses Not on filedocumented in this encounter Additional Health Concerns Infection Onset Date Last Indicated Resolved Time COVID-19 Confirmed 03/04/2023 03/04/2023 3 10:37 PM NETWORK OPERATIONS CENTER TECHNICIAN Rule Out Respiratory 03/02/2024 03/02/2024 024 11:48 AM NETWORK OPERATIONS CENTER TECHNICIAN Rule Out Respiratory 08/26/2024 08/26/2024 025 4:11 PM CDT documented as of this encounter Care Teams Transformation Analyst Relationship Specialty [place] [address] [facility] [address] [place] [address] PCP - General Family Medicine 08/26/24 documented as of this encounter
--- OUTSIDE RECORDS SUMMARY | 2025-03-24 20:41 | XMS_ITS | Encounter Summary ---
Author Organization Nicole bensons of [facility] and Its Subsidiaries and Affiliates Address [address] [address] [place] [address] Care Team Providers Care Field Engineer Name Role Phone Brittny Kong MD Primary Care Provider [phone] Encounter Details Date Type Department Care Team (Late st Contact Info) Description 01/05/2019 Procedure Pass [facility] [address] [facility] [place] [address] Social History Tobacco [...] st Contact Info) Description 04/29/2025 2:15 PM SOUND ENGINEER Office Visit [place] [facility] [address] [facility] [address] [place] [address] Rafael Casey MD [address] [place] [address] [place] [address] documented as of this encounter Visit Diagnoses Not on filedocumented in this encounter Additional Health Concerns Infection Onset Date Last Indicated Resolved Time COVID-19 Confirmed 03/04/2023 03/04/2023 3 10:37 PM SOUND ENGINEER Rule Out Respiratory 03/02/2024 03/02/2024 024 11:48 AM SOUND ENGINEER Rule Out Respiratory 08/26/2024 08/26/2024 025 4:11 PM CDT documented as of this encounter Care Teams Field Engineer Relationship Specialty [place] [address] [facility] [address] [place] [address] PCP - General Family Medicine 08/26/24 documented as of this encounter
--- OUTSIDE RECORDS SUMMARY | 2025-03-24 20:41 | XMS_ITS | Encounter Summary ---
Author Organization Nicole [facility] and Its Subsidiaries and Affiliates Address [address] [address] [place] [address] Care Team Providers Care Garland Machine Operator Name Role Phone Brittny Kong MD Primary Care Provider [phone] Encounter Details Date Type Department Care Team (Late st Contact Info) Description 12/16/2014 Hospital FM CONVERSION ENCOUNTER [address] [...] st Contact Info) Description 04/29/2025 2:15 PM BENCH EXAMINER Office Visit [place] [facility] [address] [place] [address] Rafael Casey MD [address] [place] [phone] documented as of this encounter Procedures Procedure Name Priority Date/Time Associated Diagnosis Comments XR CHEST 2 VIEW PA AND LATERAL Routine 12/16/2014 12:46 PM CDT documented in this encounter Results * XR Chest 2 View PA and Lateral (12/16/2014 12:46 PM CDT) Anatomical Region Laterality Modality Chest Radiographic Ninoska ging 12/16/2014 12:4 6 PM CDT Narrative 12/16/2014 1:11 PM CDT XR Chest EPA and Lateral 2V CLINICAL HISTORY: Cough COMPARISON: Single view chest obtained as part of a 11/16/2002 abdominal series The lung volumes have increased slightly since the previous study. There is persistent mild biapical pleural and/or pulmonary parenchymal scarring. No lobar consolidation, edema, or significant pleural effusion is evident. There is mild blunting of the posterior costophrenic sulci which is likely related to pleural thickening, although tiny effusions cannot be totally excluded. The cardiac silhouette is normal in size. There is moderate, calcific atherosclerotic plaque in the aortic arch. There is a mild to moderate thoracolumbar dextroscoliosis. IMPRESSION: Pleural thickening versus tiny effusions blunt the posterior costophrenic sulci. Was Iodinated IV Contrast Used? (excluding gastroview) No FINAL Transcribed By: PATIENCE Transcribed Date/Time: 16-DEC-2014 13:05 Electronically Signed By: Matthew Craig MD Proxied for: Matthew Craig MD Signed Date/Time: 16-DEC-2014 13:08 us Radiologist At [facility] DIAGNOSTIC IMAGING ORDER INDIRA Final Result documented in this encounter Visit Diagnoses Not on filedocumented in this encounter Additional Health Concerns Infection Onset Date Last Indicated Resolved Time COVID-19 Confirmed 03/04/2023 03/04/2023 3 10:37 PM BENCH EXAMINER Rule Out Respiratory 03/02/2024 03/02/2024 024 11:48 AM BENCH EXAMINER Rule Out Respiratory 08/26/2024 08/26/2024 025 4:11 PM CDT documented as of this encounter Care Teams Garland Machine Operator Relationship Specialty Start Date End Date [place], [place] [address] [facility] [address] [place] [address] PCP - General Family Medicine 08/26/24 documented as of this encounter
--- OUTSIDE RECORDS SUMMARY | 2025-03-24 20:41 | XMS_ITS | Encounter Summary ---
Author Organization [facility] and Its Subsidiaries and Affiliates Address [address] [address] [place] [address] Care Team Providers Care Computer Aide Name Role Phone Brittny Kong MD Primary Care Provider [phone] Encounter Details Date Type Department Care Team (Late st Contact Info) Description 12/16/2018 Procedure Pass [facility] EXTERNAL FILMS [address] [...] st Contact Info) Description 04/29/2025 2:15 PM RETAIL BRANCH MANAGER Office Visit [place] [facility] [address] [place] [phone] Rafael Casey MD [address] [facility] [address] [place] [phone] documented as of this encounter Visit Diagnoses Not on filedocumented in this encounter Additional Health Concerns Infection Onset Date Last Indicated Resolved Time COVID-19 Confirmed 03/04/2023 03/04/2023 3 10:37 PM RETAIL BRANCH MANAGER Rule Out Respiratory 03/02/2024 03/02/2024 024 11:48 AM RETAIL BRANCH MANAGER Rule Out Respiratory 08/26/2024 08/26/2024 025 4:11 PM CDT documented as of this encounter Care Teams Computer Aide Relationship Specialty [place] [address] [facility] [address] [place] [address] PCP - General Family Medicine 08/26/24 documented as of this encounter
--- OUTSIDE RECORDS SUMMARY | 2025-03-24 20:41 | XMS_ITS | Encounter Summary ---
Author Organization [facility] and Its Subsidiaries and Affiliates Address [address] [address] [place] [address] Care Team Providers Care Fire Medic Name Role Phone Brittny Kong MD Primary Care Provider [phone] Encounter Details Date Type Department Care Team (Late st Contact Info) Description 09/21/2018 Procedure Pass [facility] [address] [place] [id number] Social History Tobacco Use Types Packs/Day Years [...] st Contact Info) Description 04/29/2025 2:15 PM HOME BUILDER Office Visit [facility] [address] [place] [id number] Rafael Casey MD [address] [place] [address] documented as of this encounter Visit Diagnoses Not on filedocumented in this encounter Additional Health Concerns Infection Onset Date Last Indicated Resolved Time COVID-19 Confirmed 03/04/2023 03/04/2023 3 10:37 PM HOME BUILDER Rule Out Respiratory 03/02/2024 03/02/2024 024 11:48 AM HOME BUILDER Rule Out Respiratory 08/26/2024 08/26/2024 025 4:11 PM CDT documented as of this encounter Care Teams Fire Medic Relationship Specialty [place] [address] [facility] [address] [place] [address] PCP - General Family Medicine 08/26/24 documented as of this encounter
[2025-03-24 20:48] VITALS: BP 252/95; PULSE 66; O2SAT 98
--- NOTE | 2025-03-24 20:54 | XRR_ITS ---
PROCEDURE INFORMATION: Exam: XR Chest Exam date and time: 03/24/2025 9:06 PM Age: 80 years old Clinical indication: Dyspnea; Additional info: Chronic dyspnea TECHNIQUE: Imaging protocol: Radiologic exam of the chest. Views: 1 view. COMPARISON: No relevant prior studies available. FINDINGS: Lungs: Scattered opacity in the left mid to lower lung zone which can be seen in pneumonia. Pleural spaces: No definite pleural effusion. Heart/Mediastinum: Cardiomegaly. Vasculature: Aortic calcifications. Bones/joints: Unremarkable. XR/XR chest 1V portable [id number] IMPRESSION: Scattered opacity in the left mid to lower lung zone which can be seen in pneumonia.
--- NOTE | 2025-03-24 20:54 | CTR_ITS ---
PROCEDURE INFORMATION: Exam: CT Head Without Contrast Exam date and time: 03/24/2025 9:18 PM Age: 80 years old Clinical indication: Injury or trauma; Fall; Injury date: 03/24/2025; Additional info: Headache, dizziness, elevated BP, fall this morning TECHNIQUE: Imaging protocol: Computed tomography of the head without contrast. Radiation optimization: All CT scans at this facility use at least one of these dose optimization techniques: automated exposure control; mA and/or kV adjustment per patient size (includes targeted exams where dose is matched to clinical indication); or iterative reconstruction. COMPARISON: No relevant prior studies available. RADIATION DOSE METRICS: Total DLP (mGy-cm): 1069.93 FINDINGS: Brain: Global cortical atrophy commensurate with the patient's age. No acute intracranial abnormality. Chronic findings as above. 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 Probable lacunar infarct right basal ganglia. Scattered subcortical deep and periventricular hypoattenuating white matter changes which is nonspecific but can be seen in microangiopathic ischemic changes. Basal cisterns are patent. Cerebral ventricles: No ventriculomegaly. Paranasal sinuses: Visualized sinuses are unremarkable. No fluid levels. Mastoid air cells: Visualized mastoid air cells are well aerated. Orbital cavities: Evidence of prior cataract surgery otherwise the intraorbital contents are unremarkable. Bones: Unremarkable. No acute fracture. Soft tissues: Unremarkable. Vasculature: Carotid siphon calcifications. CT/CT head wo con* [id number] IMPRESSION: No acute intracranial abnormality. Chronic findings as above.
--- NOTE | 2025-03-24 21:17 | ED_ITS ---
HPI - Dizziness 2 General: Chief Complaint: Dizziness Stated Complaint: High BP, dizzy, vomiting Time Seen by Provider: 03/24/25 20:43 History of Present Illness: HPI Narrative: 80-year-old female past medical history significant for remote history of smoking, hypertension compliant with her prescribed outpatient medications, recent nuclear stress test that was reportedly normal, presenting to the emergency department with lightheaded dizziness worse upon standing since this morning, contributed to a fall that also occurred this late morning and was secondary to rain and leaves scattered on the ground although patient does report she was dizzy and thinks that may have contributed to the fall. No LOC, she reports approximately 5 out of 10 posterior headache as well as nausea, 2 episodes of vomiting, lightheaded dizziness today, she has a history of chronic hearing loss, no acute hearing or vision changes, no weakness numbness or tingling to the face arms or legs, no difficulty with ambulation, currently traveling here from [place] to visit family. No recent fevers cough sore throat abdominal pain vomiting or diarrhea prior to today. Related Data Previous Rx's ?Medication ?Instructions ?Recorded amoxicillin 875 mg-potassium 1 tab PO BID 5 days #10 t abs 03/24/25 clavulanate 125 mg tablet carvedilol 6.25 mg tablet 6.25 mg PO BID 1 month #60 t abs 03/24/25 Allergies Allergy/AdvReac Type Severity Reaction Status Date / Time No Known Allergies Allergy Verified 03/24/25 20:40 Physical Exam 2 Narrative: EXAM NARRATIVE: Gen: A&Ox4, no acute distress, nontoxic appearing, obese HEENT: Normocephalic, atraumatic, no scleral icterus, external ears normal, moist mucous membranes, no tenderness palpation to the posterior occiput or scalp hematoma or laceration noted, no periorbital ecchymosis, no Tena sign Neck: Supple, full range of motion, no observable masses, no tenderness palpation of the midline cervical spine, normal range of motion of the neck without discomfort Lungs: No Respiratory distress, Lungs clear to auscultation bilaterally no rales, rhonchi, wheezing CV: Regular rate and rhythm, no murmur, no pitting edema to lower extremities bilaterally Abdomen: Soft, nondistended, nontender to palpation MSK: No joint swelling, FROM all 4 extremities Skin: No rashes, petechiae, lesions. Normal color per patient. Neuro: Alert and oriented x 4, no slurred speech, sensation and strength grossly intact all 4 extremities, no facial droop, extraocular muscles intact without visualized nystagmus, no provocation of the patient's dizziness with extraocular muscle testing, visual kate intact, no slurred speech, speaking in full sentences with appropriate and coherent responses, naming and repetition intact, no pronator drift, no dysmetria on [id number] testing bilaterally, NIH 0 Psych: Appropriate for situation. Course 2 Reevaluation(s): Reevaluation #1: Patient reassessed, blood pressure currently spontaneously improving now at 177/96 as of 10:15 PM, receiving the IV magnesium sulfate. Obtain some collateral information that the patient has a history of stage II chronic kidney disease as well as COPD that has been well-controlled over 20 years and has not smoked since 2000, she had previously been on losartan and carvedilol both twice daily which was decreased to once daily a couple months ago due to episodes of low blood pressure, she also in addition to her nuclear stress test recently also had a coronary CTA which was reportedly also reassuring and was told she did not have any cardiac disease, she was recently treated for a bladder infection with antibiotics about a week and a half ago and had a repeat urinalysis that was reportedly negative for recurrent infection. 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 Results of workup without any evidence of acute endorgan dysfunction to suggest the patient has hypertensive emergency that would warrant iv antihypertensive or admission. Time: 22:21 Reevaluation #2: Patient reassessed, symptoms improved, blood pressure markedly improved currently at 170/70, will Rx carvedilol 6.25 to be taken twice daily until follow-up with PCP, I discussed more with the patient's left-sided lung abnormalities on chest x-ray, she provided some collateral information that she has a chronic history of abnormalities to the left lung that have required frequent surveillance imaging and are always discussed with her whenever she has a chest x-ray, she believes this may be due to a cyst versus nodule but is not clear but reports that it is a known finding. I told her that with this additional information and her lack of fever or cough makes bacterial pneumonia far less likely, at this time she still strongly prefers a course of oral antibiotics which is not unreasonable given her chronic dyspnea, we will follow- up with her PCP for further evaluation Time: 23:36 Vital Signs: Vital signs: Vital Signs Temperature 98 F 03/24/25 20:26 Pulse Rate 64 03/24/25 23:21 Respiratory Rate 18 03/24/25 20:26 Blood Pressure 169/83 03/24/25 23:21 Pulse Oximetry 94 03/24/25 23:21 Oxygen Delivery Me thod Room Air 03/24/25 23:21 MDM - Dizziness Medical Decision Making 80-year-old female with a past medical history significant for hypertension, former smoker, obesity, presenting to the emergency department with 1 day history of lightheaded dizziness, fall earlier today with trauma to the upper back but no pain to the area, she does report headache with 2 episodes of vomiting in the context of the dizziness that occurred after the fall, she denies anticoagulant use, her physical exam does not show evidence of significant external head trauma and her neurologic exam is nonfocal at this time, she does have markedly elevated blood pressure especially her systolic which was 230-250, plan for treatment of headache with monitoring of blood pressure while workup for endorgan dysfunction to meet criteria for hypertensive emergency is performed, CT brain to look for intracranial hemorrhage, at this time I have a low concern for posterior CVA but considered, low concern for vascular dissection in the head or neck region, will reassess blood pressure to assess need for antihypertensives after treatment of the headache. Lab Data Labs showing no leukocytosis or anemia, creatinine 1.1 consistent with history of stage II CKD, troponin minimally elevated at 17, proBNP mildly elevated 980 without evidence of hypervolemia on peripheral exam or chest x-ray 03/24/25 21:40 03/24/25 21:40 Radiology Impressions Chest X-Ray 03/24/25 20:54 IMPRESSION: Scattered opacity in the left mid to lower lung zone which can be seen in pneumonia. Head CT 03/24/25 20:54 IMPRESSION: No acute intracranial abnormality. Chronic findings as above. Laboratory Results WBC 9.90 10^3/uL (3.29-11.43) 03/24/25 21:40 RBC 4.58 10^6/uL (3.85-5.65) 03/24/25 21:40 Hgb 12.00 g/dL (11.27-16.99) 03/24/25 21:40 Hct 39.6 % (36-47) 03/24/25 21:40 MCV 86.5 fl (85-98) 03/24/25 21:40 MCH 26.2 pg (27-33) L 03/24/25 21:40 MCHC 30.3 g/dL (30-55) 03/24/25 21:40 RDW 14.7 % (12.1-15.1) 03/24/25 21:40 Plt Count 404 10^3/cmm (157-399) H 03/24/25 21:40 MPV 9.9 fL (7.4-10.4) 03/24/25 21:40 Neut % (Auto) 72.8 % 03/24/25 21:40 Lymph % (Auto) 17.5 % 03/24/25 21:40 Wells % (Auto) 7.4 % 03/24/25 21:40 Eos % (Auto) 1.3 % 03/24/25 21:40 Baso % (Auto) 0.7 % 03/24/25 21:40 Neut # (Auto) 7.21 10^3/uL (1.8-7.7) 03/24/25 21:40 Lymph # (Auto) 1.7 10^3/uL (0.8-4.8) 03/24/25 21:40 Wells # (Auto) 0.7 10^3/uL (0.2-0.9) 03/24/25 21:40 Eos # (Auto) 0.1 10^3/uL (0.0-0.8) 03/24/25 21:40 Baso # (Auto) 0.1 10^3/uL (0.0-0.1) 03/24/25 21:40 Nucleated RBC % (auto) 0 % 03/24/25 21:40 Nucleated RBCs # 0.0 /100WBC 03/24/25 21:40 Sodium 144 mmol/L (136-145) 03/24/25 21:40 Potassium 4.4 mmol/L (3.5-5.1) 03/24/25 21:40 Chloride 106 mmol/L (98-107) 03/24/25 21:40 Carbon Dioxide 26 mmol/L (22-29) 03/24/25 21:40 Anion Gap 16.4 (5-19) 03/24/25 21:40 BUN 12 mg/dL (8-23) 03/24/25 21:40 Creatinine 1.1 mg/dL (0.5-0.9) H 03/24/25 21:40 GFR Calculation Not Reportable 03/24/25 21:40 Glucose 109 mg/dL (65-115) 03/24/25 21:40 Calculated Osmolality 298 mOsm/kg (285-295) H 03/24/25 21:40 Calcium 9.8 mg/dL (8.5-10.5) 03/24/25 21:40 Magnesium 2.6 mg/dL (1.7-2.3) H 03/24/25 21:40 Troponin T Baseline 17 ng/L (0-10) H 03/24/25 21:40 NT-Pro-B Natriuret Pep 981 pg/mL (0-450) H 03/24/25 21:40 All radiology interpretation(s) finalized by discharge ED provider radiology interpretation(s): CT brain with no acute intracranial hemorrhage, chronic ischemic changes present Chest x-ray showing left-sided pulmonary opacities, no pleural effusion EKG Data EKG 1: I personally reviewed and interpreted this EKG as follows: EKG interpretation date: 03/24/25 EKG interpretation time: 21:22 Interpretation: Sinus rhythm at 67 bpm, mildly prolonged QT interval QTc 465 ms, no STEMI, no ectopy, normal axis Discharge Plan Discharge Patient Disposition: Home Clinical Impression: Dizziness, Accelerated essential hypertension Condition: Stable Prescriptions: New carvedilol 6.25 mg tablet 6.25 mg PO BID 30 Days Qty: 60 0RF Rx Instructions: must administer with a meal/food amoxicillin-pot clavulanate 875-125 mg tablet 1 tab PO BID 5 Days Qty: 10 0RF Discharge Orders: Discharge ED (Routine); Ordered 03/24/25 Ordered By: Gera Ayala Patient Instructions: Patient Portal & Betzy Instructions, Hypertension (ED), Dizziness (ED) Print Language: Serbian Coding Level of Care Code ED Safety And Skill Based Pay Manager for Catherine Moreno
[2025-03-24 21:34] VITALS: BP 243/92; PULSE 62; O2SAT 96
[2025-03-24] MEDS: diphenhydrAMINE 50 mg/mL SDV 1mL 25 MG IVP (21:52)
[2025-03-24] MEDS: metoclopramide 5 mg/mL SDV 2 mL 10 MG IVP (21:52)
[2025-03-24 21:53] LABS: Hematocrit 39.6 % (36-47); Hemoglobin 12.00 g/dL (11.27-16.99); Mean Corpuscular HGB Conc 30.3 g/dL (30-55); Mean Corpuscular Hemoglobin 26.2 pg (27-33); Mean Corpuscular Volume 86.5 fl (85-98); Nucleated Red Blood Cells % 0 %; Platelet Count 404 10^3/cmm (157-399); Red Blood Count 4.58 10^6/uL (3.85-5.65); White Blood Count 9.90 10^3/uL (3.29-11.43)
[2025-03-24] MEDS: magnesium sulfate premix 1 GM/100 ML PIGGYBACK IV (22:01)
[2025-03-24 22:05] VITALS: BP 185/115
[2025-03-24 22:53] LABS: Troponin(5th) Baseline 17 ng/L (0-10)
[2025-03-24 23:02] LABS: Anion Gap 16.4 (5-19); Blood Urea Nitrogen 12 mg/dL (8-23); Calcium 9.8 mg/dL (8.5-10.5); Carbon Dioxide 26 mmol/L (22-29); Chloride 106 mmol/L (98-107); Glucose 109 mg/dL (65-115); Magnesium 2.6 mg/dL (1.7-2.3); NT Pro B Type Natriuretic Pept 981 pg/mL (0-450); Osmolality Calculated 298 mOsm/kg (285-295); Potassium 4.4 mmol/L (3.5-5.1); Sodium 144 mmol/L (136-145)
[2025-03-24 23:21] VITALS: BP 169/83; PULSE 64; O2SAT 94
[2025-03-24 23:49] VITALS: BP 189/89; PULSE 72; O2SAT 96
[2025-03-25 00:19] VITALS: BP 189/89; PULSE 72; O2SAT 96
== END 2025-03-25 00:22 | disposition home or self-care (01) ==
PROVIDERS: Emergency Provider Student in an Organized Health Care Education/Training Program
DX: R42 Dizziness and giddiness (principal); I10 Essential (primary) hypertension; Z87.891 Personal history of nicotine dependence
CPT/HCPCS: 70450; 71045; 80048; 83735; 83880; 84484; 85025; 93005; 96374; 96375; 99285; J1200; J1885; J2765; J3475; J7030; J9999